=== PATIENT | male | born 1940 | race Caucasian/White ===

== ENCOUNTER 2016-09-15 14:00 | Outpatient (RCR) | payer MEDICARE ==
[~2016-09-15] VITALS: Ht 172.7 cm; Wt 71.4 kg
[~2016-09-15 14:00] MED LIST: ALBU0.8322 IH; AMLO5TAB2 PO; ASP325TEC PO; ASP81TEC PO; ASPI-999 PO; ATOR40TA PO; ATOR80TA PO; CARV12.53 PO; CARV6.252 PO; CEFU500T5 PO; CHOL200018 PO; EZET10TA5 PO; FISH OIL OMEGA; FISH OIL PO; FRS325T PO; GI COCTAIL PO; GLIP5TAB26 PO; HCT25T PO; IMIP25TA4 PO; IRON PO; MV,C1TAB21 PO; NF-ESOM40C PO; OMEG1CAP51 PO; RAMI10CA PO; RAMI5CAP PO; SITA50TA PO; TCD12.5U PO; VIT D-3 PO
[2016-09-15 14:50] VITALS: BP 142/61
[2016-09-15] MEDS ORDERED: METO-352 PO (16:52)
[2016-09-15] MEDS ORDERED: CYAN10006 PO (16:52)
[2016-09-15] MEDS ORDERED: CNC1KV IJ (16:52)
[2016-09-15] MEDS ORDERED: DIME50TA PO (16:52)
[2016-09-15] MEDS ORDERED: METF500T4 PO (16:52)
[2016-09-15] MEDS ORDERED: DILT120C82 PO (16:52)
[2016-09-16] VITALS (7 sets, daily range): BP systolic 108–142; BP diastolic 47–61
[2016-09-16] MEDS ORDERED: NS IV 500 ML 500 ML ONE (07:34)
== END 2016-12-14 | disposition home or self-care (01) ==
LOC: SDC 14:00 → EDSTATUS 15:46
DX: D64.9 Anemia, unspecified (principal)
CPT/HCPCS: 36430; 86850; 86900; 86901; 86920

== ENCOUNTER 2016-10-02 09:51 | Outpatient (RCR) | payer MEDICARE ==
[2016-09-29 09:25] LABS: BASOPHILS % (AUTO) 0 % (0-10); EOSINOPHILS # (AUTO) 0.2 10^3/uL (0.0-0.3); EOSINOPHILS % (AUTO) 1 % (0-10); LYMPHOCYTES # (AUTO) 13.2 X 10^3 (1.0-4.0); LYMPHOCYTES % (AUTO) 75 % (12-44); MEAN CORPUSCULAR HEMOGLOBIN 33 PG (25-34); MEAN CORPUSCULAR HGB CONC 31 G/DL (32-36); MEAN CORPUSCULAR VOLUME 106 FL (80-99); MEAN PLATELET VOLUME 10.5 FL (7.4-10.4); MONOCYTES % (AUTO) 11 % (0-12); NEUTROPHILS # (AUTO) 2.2 X 10^3 (1.8-7.8); NEUTROPHILS % (AUTO) 13 % (42-75); PLATELET COUNT 134 10^3/uL (130-400); RED BLOOD COUNT 2.73 10^6/uL (4.35-5.85); RED CELL DISTRIBUTION WIDTH 17.3 % (10.0-14.5); WHITE BLOOD COUNT 17.7 10^3/uL (4.3-11.0)
[2016-09-29 09:48] LABS: ALANINE AMINOTRANSFERASE 11 U/L (0-55); ALBUMIN 3.6 G/DL (3.2-4.5); ANION GAP 6 MMOL/L (5-14); ASPARTATE AMINO TRANSFERASE 10 U/L (5-34); BILIRUBIN,TOTAL 0.3 MG/DL (0.1-1.0); BLOOD UREA NITROGEN 18 MG/DL (7-18); BUN/CREATININE RATIO 21; CALCIUM 8.6 MG/DL (8.5-10.1); CARBON DIOXIDE 28 MMOL/L (21-32); CHLORIDE 105 MMOL/L (98-107); CREATININE SERUM 0.86 MG/DL (0.60-1.30); GFR ESTIMATED > 60; GLUCOSE 172 MG/DL (70-105); LACTATE DEHYDROGENASE 209 U/L (125-220); POTASSIUM 4.5 MMOL/L (3.6-5.0); SODIUM 139 MMOL/L (135-145); TOTAL PROTEIN 6.5 G/DL (6.4-8.2)
[2016-09-29 11:43] LABS: ATYPICAL LYMPHOCYTES 56 %; BAND NEUTROPHILS 0 %; BASOPHILS % (MANUAL) 1 %; EOSINOPHILS % (MANUAL) 1 %; LYMPHOCYTES % (MANUAL) 27 %; NEUTROPHILS % (MANUAL) 14 %; REACTIVE LYMPHOCYTES 1 %
[2016-09-29 11:46] LABS: ANISOCYTOSIS SLIGHT; HYPOCHROMASIA SLIGHT; POIKILOCYTOSIS SLIGHT; SPHEROCYTES SLIGHT
[2016-09-29 11:47] LABS: ROULEAUX SLIGHT; STOMATOCYTES SLIGHT; TEAR DROP CELLS SLIGHT
[2016-10-02 07:52] LABS: METHYLMALONIC ACID 0.18 umol/L (0.00-0.40)
[~2016-10-02 09:51] MED LIST changes: +CNC1KV IJ; +CYAN10006 PO; +DILT120C82 PO; +DIME50TA PO; +METF500T4 PO; +METO-352 PO
== END 2016-12-28 | disposition home or self-care (01) ==
LOC: ONC 09:51
PROVIDERS: ATTEND Internal Medicine Hematology & Oncology
DX: C91.10 Chronic lymphocytic leukemia of B-cell type not having achieved remission (principal); Z85.46 Personal history of malignant neoplasm of prostate; R97.20 Elevated prostate specific antigen [PSA]; D50.9 Iron deficiency anemia, unspecified; K21.9 Gastro-esophageal reflux disease without esophagitis; I42.9 Cardiomyopathy, unspecified; Z95.810 Presence of automatic (implantable) cardiac defibrillator; Z79.899 Other long term (current) drug therapy
CPT/HCPCS: 36415; 80053; 82728; 83615; 83921; 84153; 85007; 85027; 99213

== ENCOUNTER 2017-01-26 09:40 | Outpatient (CLI) | payer MEDICARE ==
[~2017-01-26] VITALS: Ht 172.7 cm; Wt 71.4 kg
[2017-01-26] VITALS (7 sets, daily range): BP systolic 131–147; BP diastolic 50–63
[2017-01-26] MEDS ORDERED: NS IV 500 ML 500 ML ONE (10:59)
[2017-01-26] MEDS ORDERED: NS IV 500 ML 500 ML IV SCH (12:15)
== END 2017-01-26 17:35 | disposition home or self-care (01) ==
LOC: SDC 09:40
DX: D64.9 Anemia, unspecified (principal)
CPT/HCPCS: 36430; 86850; 86900; 86901; 86920

== ENCOUNTER 2017-02-04 06:01 | Outpatient (CLI) | payer MEDICARE ==
[~2017-02-04] VITALS: Ht 172.7 cm; Wt 71.4 kg
[2017-02-04] MEDS ORDERED: FLUT1AER IH (11:01)
[2017-02-04] MEDS ORDERED: METO-272 PO (11:01)
[2017-02-04] MEDS ORDERED: UMEC62.5 IH (11:01)
[2017-02-04] MEDS ORDERED: METF500T8 PO (11:01)
[2017-02-04] MEDS ORDERED: DILT120C53 PO (11:01)
== END 2017-02-04 11:03 ==
LOC: PREOP 06:01
PROVIDERS: ATTEND Surgery
DX: Z01.818 Encounter for other preprocedural examination (principal); D50.9 Iron deficiency anemia, unspecified

== ENCOUNTER 2017-02-23 07:47 | Day surgery (SDC) | payer MEDICARE ==
[~2017-02-23] VITALS: Ht 172.7 cm; Wt 71.4 kg
[~2017-02-23 07:47] MED LIST changes: +DILT120C53 PO; +FLUT1AER IH; +METF500T8 PO; +METO-272 PO; +UMEC62.5 IH
[2017-02-23] MEDS ORDERED: fentaNYL INJECTION 100 MCG/2 ML AMP IVP PRN (08:00)
[2017-02-23] MEDS ORDERED: NS IV 500 ML 500 ML IV PRN (08:00)
[2017-02-23] MEDS ORDERED: HURRICAINE EXT TUBE (BENZOCAINE) XX PRN (08:00)
[2017-02-23] MEDS ORDERED: FLUMAZENIL (ROMAZICON) 0.1 MG/ML 5 ML VIAL INJ PRN (08:00)
[2017-02-23] MEDS ORDERED: MIDAZOLAM 2 MG/2 ML (VERSED) VIAL IVP PRN (08:00)
[2017-02-23] MEDS ORDERED: NALOXONE 0.4 MG/ML 1 ML (NARCAN) VIAL IVP PRN (08:00)
[2017-02-23 08:26] VITALS: BP 124/56
[2017-02-23] MEDS ORDERED: MIDAZOLAM 2 MG/2 ML (VERSED) VIAL ONE ×2 (08:34→09:02)
[2017-02-23] MEDS ORDERED: HURRICAINE EXT TUBE (BENZOCAINE) ONE (08:35)
[2017-02-23] MEDS ORDERED: fentaNYL INJECTION 100 MCG/2 ML AMP ONE (08:35)
--- NOTE | 2017-02-23 09:18 | Pre-Op Note & Conscious Sedat ---
Pre-Operative Progress Note H&P Reviewed The H&P was reviewed, patient examined and no changes noted. Date H&P Reviewed: Feb 23, 2017 Time H&P Reviewed: 08:51 Pre-Op Diagnosis: Iron deficiency anemia. GERD Conscious Sedation Pre-Proced Airway Mallampati Classification: (tribe appropriate class) I. II. III, IV Lungs Heart ASA score ASA 1: a normal healthy patient ASA 2: a patient with a mild systemic disease (mid diabetes, controlled hypertension, obesity ASA 3: a patient with a severe systemic disease that limits activity (angina , COPD, prior Myocardial infarction) ASA 4: a patient with an incapacitating disease that is a constant threat to life (CHF, renal failure) ASA 5: a moribund patient not expected to survive 24 hrs. (ruptured aneurysm) ASA 6: a declared brain patient whose organs are being harvested. For emergent operations, add the letter E after the classification Note The patient is an appropriate candidate to undergo the planned procedure, sedation, and anesthesia. The patient immediately re-assessed prior to indication. LEMUEL ADRIAN MD Feb 23, 2017 9:18 am
--- NOTE | 2017-02-23 09:19 | Progress Note-Post Operative ---
Post-Operative Progess Note Pre-Operative Diagnosis Iron deficiency anemia. GERD Post-Operative Diagnosis short hiatal hernia. 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 linear erosion of the distal stomach. normal duodenum Post-Op Procedure Note Date of Procedure: Feb 23, 2017 Name of Procedure: EGD with antral biopsy Anesthesia Type sedation Specimen(s) collected antral mucosa LEMUEL ADRIAN MD Feb 23, 2017 9:19 am
--- NOTE | 2017-02-23 09:20 | Discharge Inst-Simple/Standard ---
Discharge Inst-Standard Discharge Medications New, Converted or Re-Newed RX: Other Patient Instructions/Follow Up Plan of Care/Instructions/FU: follow up with his primary Activity as Tolerated: Yes Discharge Diet: No Restrictions LEMUEL ADRIAN MD Feb 23, 2017 9:20 am
--- NOTE | 2017-02-23 09:34 | PROCEDURE REPORT ---
PROCEDURE PHYSICIAN: LEMUEL ADRIAN DATE OF PROCEDURE: 02/23/2017 PROCEDURE: Upper GI endoscopy with antral biopsy. SURGEON: Jeromy INDICATION FOR THE PROCEDURE: This gentleman came in for an upper endoscopy to evaluate iron deficiency anemia and symptoms of gastroesophageal reflux. Informed consent was obtained after reviewing the procedure in detail. DESCRIPTION OF PROCEDURE: He was placed in left lateral decubitus position and his vital signs were monitored. Conscious sedation was achieved using Versed and fentanyl. The flexible gastroscope was introduced down the esophagus, past the stomach, into the proximal duodenum. FINDINGS: ESOPHAGUS: A short hiatal hernia without any inflammation. STOMACH: 1. 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 Photodocumentation was obtained. 2. Linear erosion at the distal stomach for about 15 mm. There was no bleeding from this erosion either. In addition, an antral biopsy was obtained for Helicobacter status. DUODENUM: Normal. He tolerated the procedure well and was taken back to the nursing area in a stable condition. IMPRESSION: 1. Iron deficiency anemia and symptoms of reflux disease. 2. 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 Erosion. 3. Helicobacter status pending. Job ID: [id number] Dictated Date: 02/23/2017 09:16:50 Mirror Painter Date: 02/23/2017 09:30:18 / coretta SHARP
[2017-02-23 09:52] VITALS: BP 108/44
[2017-02-23 09:55] VITALS: BP 121/55
[2017-02-23 10:10] VITALS: BP 121/55
--- OUTSIDE RECORDS SUMMARY | 2017-03-10 16:56 | XMS REPORT ---
Author Author Mike Limon Organization [facility] Address [address] [place], [place] [id number] Care Team Providers Care Bath Solution Maker Name Role Phone Mike Limon PCP Unavailable Allergies and Adverse Reactions Name Reaction Notes NO KNOWN DRUG ALLERGIES Plan of Treatment Planned Activity Comments Planned Date Planned Time Plan/Goal PSA TOTAL 10/07/2016 12:00 AM Testosterone Level 01/15/2015 12:00 AM Medications Not available. Problem List Description Status Onset Diabetes Mellitus, Type II Active Hyperlipidemia Active Hypertension Active Prostate Cancer Active Cancer of prostate Active 12/04/2014 Elevated prostate specific antigen (PSA) Active 12/04/2014 Urinary Incontinence Active 12/04/2014 Carcinoma of prostate Active 05/29/2015 Adenocarcinoma of prostate Active 10/02/2015 Vital Signs Date Time BP-Sys(mm[Hg] BP-Jayla(mm[Hg]) HR(bpm) RR(rpm) Temp WT HT HC BMI BSA BMI Percentile O2 Sat(%) 12/04/2014 8:59:00 AM 180 lbs 68 in 27.37 kg/m2 1.98 m2 11/13/2014 11:05:00 AM 130 mmHg 76 mmHg 54 bpm 16 rpm 98.1 F 179 lbs 68 in 27.22 kg/m2 1.9737 m 97 % Social History Name Description Comments Tobacco Alcohol Use - Rare History of Procedures Date Ordered Description Order Status 01/28/2016 12:00 AM ASSAY OF PSA TOTAL Reviewed 11/13/2014 12:00 AM COMPREHEN METABOLIC PANEL Reviewed 11/13/2014 12:00 AM LIPID PANEL Reviewed 11/13/2014 12:00 AM GLYCOSYLATED HEMOGLOBIN TEST Reviewed 11/13/2014 12:00 AM MICROALBUMIN SEMIQUANT Reviewed 12/04/2014 1:20 PM URINALYSIS AUTO W/O SCOPE Reviewed Results Summary Data and Description Results 11/14/2014 9:32 AM GLUCOSE 122.0 mg/dLSODIUM 136.0 mmol/LPOTASSIUM 4.20 mmol/ LCHLORIDE 100.0 mmol/LCO2 27.0 mmol/LBUN 27.0 mg/dLCREATININE 1.10 mg/dLSGOT/ AST 20.0 IU/LSGPT/ALT 19.0 IU/LALK PHOS 99.0 IU/LTOTAL PROTEIN 7.50 g/dLALBUMIN 4.20 g/dLTOTAL BILI 0.40 mg/dLCALCIUM 9.50 mg/dLAGE 74 GFR NonAA 65 GFR AA 79 eGFR 60 eGFR AA* 60 MICROALBUMIN UR 8.0 ug/mLTRIGLYCERIDES 132.0 mg/ dLCHOLESTEROL 126.0 mg/dLHDL 30.0 mg/dLTOT CHOL/HDL 4.2 LDL (CALC) 70.0 mg/ dLHGB A1C 7.10 %Est Avg Glucose 157.1 mg/dL 12/04/2014 1:20 PM Bilirub Ur Ql Strip -VE Glucose Ur-sCnc -VE Hgb Ur Ql Strip - VE Ketones Ur Ql Strip -VE Nitrite Ur Ql Strip -VE pH Ur-LsCnc -VE Prot Ur Ql Strip -VE Sp Gr Ur Qn 1015 Urobilinogen Ur-mCnc -VE WBC Est Ur Ql Strip -VE History Of Immunizations Not available. History of Past Illness Name Date of Onset Comments Prostate Cancer Hyperlipidemia Hypertension Diabetes Mellitus, Type II Cancer of prostate 12/04/2014 Elevated prostate specific antigen (PSA) 12/04/2014 Urinary Incontinence 12/04/2014 Carcinoma of prostate 05/29/2015 Adenocarcinoma of prostate 10/02/2015 Prostate Cancer Nov 13 2014 11:08AM Diabetes Mellitus, Type II Nov 13 2014 11:08AM Hyperlipidemia Nov 13 2014 11:08AM Hypertension Nov 13 2014 11:08AM Anemia Nov 13 2014 11:08AM Recurrent Cancer of prostate Dec 04 2014 8:59AM Elevated prostate specific antigen (PSA) Dec 04 2014 8:59AM Chronic Urinary Incontinence Dec 04 2014 8:59AM Recurrent Prostate cancer, primary, with metastasis from prostate to other site Jan 15 2015 10:58AM Carcinoma of prostate May 29 2015 12:17PM Adenocarcinoma of prostate Stable Oct 02 2015 1:51PM Cancer of prostate Jan 28 2016 3:04PM Elevated prostate specific antigen [PSA] Jan 28 2016 3:04PM Drug therapy Jan 28 2016 3:04PM Adenocarcinoma of prostate Feb 01 2016 12:22PM Elevated PSA May 27 2016 8:24AM Cancer of prostate May 27 2016 8:24AM Adenocarcinoma of prostate Jun 03 2016 11:30AM Screening for prostate cancer Oct 07 2016 11:25AM Elevated PSA Oct 07 2016 11:25AM BPH (benign prostatic hypertrophy) Oct 07 2016 11:25AM Payers Insurance Name Company Name Plan Name Plan Number Policy Number Policy Group Number Start Date Medicare Part A Medicare Part A [id number] N/A [id number] N/A Medicare Part B Medicare Of [place] [id number] N/A Medicare Part A Medicare - Lab/Xray [id number] N/A History of Encounters Visit Date Visit Type Provider 10/07/2016 Office visit V Pilar Limon MD 06/03/2016 Office visit V Pilar Limon MD 02/01/2016 Office visit V Pilar Limon MD 10/02/2015 Office visit V Pilar Limon MD 05/29/2015 Office visit V Pilar Limon MD 01/15/2015 Office visit V Pilar Limon MD 12/04/2014 Office visit V Pilar Limon MD 11/13/2014 Office visit Dieudonne Moreno DO
--- OUTSIDE RECORDS SUMMARY | 2017-03-10 16:56 | XMS REPORT ---
Author Author [facility] Organization [facility] Address [address] [place], [place] [phone] Care Team Providers Care Hide Inspector And Sorter Name Role Phone PCP Unavailable Allergies and Adverse Reactions Name Reaction Notes NO KNOWN DRUG ALLERGIES Plan of Treatment Planned Activity Comments Planned Date Planned Time Plan/Goal ASSAY OF TOTAL TESTOSTERONE 01/15/2015 12:00 AM Medications Not available. Problem List Description Status Onset Diabetes Mellitus, Type II Active Hyperlipidemia Active Hypertension Active Prostate Cancer Active Cancer of prostate Active 12/04/2014 Elevated prostate specific antigen (PSA) Active 12/04/2014 Urinary Incontinence Active 12/04/2014 Carcinoma of prostate Active 05/29/2015 Vital Signs Date Time BP-Sys(mm[Hg] BP-Jayla(mm[Hg]) HR(bpm) [...] of Procedures Date Ordered Description Order Status 11/13/2014 12:00 AM COMPREHEN METABOLIC PANEL Reviewed 11/13/2014 12:00 AM COMPREHEN METABOLIC PANEL [...] g/dLALBUMIN 4.20 g/dLTOTAL BILI 0.40 mg/dLCALCIUM 9.50 mg/dLeGFR 60 MICROALBUMIN UR 8.0 ug/ mLTRIGLYCERIDES 132.0 mg/dLCHOLESTEROL 126.0 mg/dLHDL 30.0 mg/dLLDL (CALC) 70.0 mg/dLHGB A1C 7.10 % 12/04/2014 1:20 PM Bilirub Ur Ql Strip [...] Urinary Incontinence 12/04/2014 Carcinoma of prostate 05/29/2015 Prostate Cancer Nov 13 2014 11:08AM Diabetes [...] Carcinoma of prostate May 29 2015 12:17PM Payers Insurance Name Company Name Plan Name Plan Number Policy Number Policy Group Number Start Date Medicare Part A Medicare Part A [id number] N/A [facility] [id number] N/A Medicare Part B Medicare Of [place] [id number] N/A History of Encounters Visit Date Visit Type Provider 05/29/2015 Office visit Mike Limon MD 01/15/2015 Office visit Mike Limon MD 12/04/2014 Office visit Mike Limon MD 11/13/2014 Office visit Dieudonne Moreno DO
--- OUTSIDE RECORDS SUMMARY | 2017-03-10 16:57 | XMS REPORT ---
Author Author Mike Limon Organization [facility] Address [address] [place], [place] [phone] Care Team Providers Care Diabetes Nurse Name Role Phone Mike Limon PCP Unavailable [...] prostate specific antigen (PSA) Active 12/04/2014 Urinary incontinence Active 12/04/2014 Carcinoma of prostate Active 05/29/2015 [...] mg/dLCHOLESTEROL 126.0 mg/dLHDL 30.0 mg/dLLDL (CALC) 70.0 mg/dLEst Avg Glucose 157.1 mg/dL 12/04/2014 1:20 PM [...] Elevated prostate specific antigen (PSA) 12/04/2014 Urinary incontinence 12/04/2014 Carcinoma of prostate 05/29/2015 Adenocarcinoma of [...] Adenocarcinoma of prostate Feb 01 2016 12:22PM Payers Insurance Name Company Name Plan Name Plan Number Policy Number Policy Group Number Start Date Medicare Part A Medicare Part A [id number] N/A [facility] [id number] N/A Medicare Part B Medicare Of [place] [id number] N/A History of Encounters Visit Date Visit Type Provider 02/01/2016 Office visit V Pilar Limon MD 10/02/2015 Office visit V Pilar Limon MD 05/29/2015 Office visit V Pilar Limon MD 01/15/2015 Office visit V Pilar Limon MD 12/04/2014 Office visit V Pilar Limon MD 11/13/2014 Office visit Dieudonne Moreno DO
--- OUTSIDE RECORDS SUMMARY | 2017-03-10 16:57 | XMS REPORT ---
Author Author Mike Limon Organization [facility] Address [address] [place], [place] [phone] Care Team Providers Care Solution Director Name Role Phone Mike Lmion PCP Unavailable Allergies and Adverse Reactions Name Reaction Notes NO KNOWN DRUG ALLERGIES Plan of Treatment Planned Activity Comments Planned Date Planned Time Plan/Goal PSA TOTAL 01/28/2017 12:00 AM Testosterone Level 01/15/2015 12:00 AM [...] 12:00 AM ASSAY OF PSA TOTAL Reviewed 10/07/2016 12:00 AM ASSAY OF PSA TOTAL Reviewed [...] -VE WBC Est Ur Ql Strip -VE 10/07/2016 12:05 PM PSA TOTAL <0.06 ng/mL History Of Immunizations Not available. History of [...] (benign prostatic hypertrophy) Oct 07 2016 11:25AM Adenocarcinoma of prostate Oct 07 2016 11:41AM Cancer of prostate Jan 28 2017 8:24AM Payers Insurance Name Company Name Plan Name Plan Number Policy Number Policy Group Number Start Date Medicare Part A Medicare Part A [id number] N/A BCBS [facility] [id number] N/A Medicare Part B Medicare Of [place] [id number] N/A Medicare Part A Medicare - Lab/Xray [id number] N/A History of Encounters Visit Date Visit [...]
--- OUTSIDE RECORDS SUMMARY | 2017-03-10 17:03 | XMS REPORT ---
Author Author Mike Limon Organization [facility] Address [address] [place], [place] [phone] Care Team Providers Care Ems Driver Name Role Phone Mike Limon PCP Unavailable Allergies and Adverse Reactions Name Reaction Notes NO KNOWN DRUG ALLERGIES Plan of Treatment Planned Activity Comments Planned Date Planned Time Plan/Goal ASSAY OF PSA TOTAL 05/27/2016 12:00 AM ASSAY OF TOTAL TESTOSTERONE 01/15/2015 12:00 AM [...] 30.0 mg/dLLDL (CALC) 70.0 mg/dLHGB A1C 7.10 %Est Avg Glucose 157.1 mg/dL [...] Cancer of prostate May 27 2016 8:24AM Payers Insurance Name Company Name Plan Name Plan Number Policy Number Policy Group Number Start Date Medicare Part A Medicare Part A [id number] N/A [facility] [id number] N/A Medicare Part B Medicare Of [place] [id number] N/A History of Encounters Visit Date Visit Type Provider 02/01/2016 Office visit V Pilar Limon MD 10/02/2015 Office visit V Pilar Limon MD 05/29/2015 Office visit V Pilar Limon MD 01/15/2015 Office visit V Pilar Limon MD 12/04/2014 Office visit V Pilar Limon MD 11/13/2014 Office visit Dieudonne Moreno DO
--- OUTSIDE RECORDS SUMMARY | 2017-03-10 17:03 | XMS REPORT | Continuity of Care Document ---
Author Author [facility] Organization [facility] Address Unknown Phone Unavailable Allergies Active Description Code Type Severity Reaction Onset Reported/Identified Relationship to Patient Clinical Status Yes No Known Drug Allergies [id number] Drug Allergy Unknown N/ A 10/16/2016 Medications Problems Date Dx Coded Attending Type Code Diagnosis Diagnosed By 06/13/2009 Ot 530.81 06/13/2009 Ot 535.40 08/01/2009 Ot 204.10 08/01/2009 Ot 440.20 08/01/2009 Ot 788.30 08/01/2009 Ot V10.46 08/01/2009 Ot V58.66 08/01/2009 Ot V58.69 11/12/2009 Ot 204.10 11/12/2009 Ot 440.20 11/12/2009 Ot 788.30 11/12/2009 Ot V10.46 11/12/2009 Ot V58.66 11/12/2009 Ot V58.69 06/16/2010 Ot 204.10 06/16/2010 Ot 305.1 06/16/2010 Ot V10.46 06/16/2010 Ot V58.66 06/16/2010 Ot V58.69 09/22/2010 Ot 204.10 09/22/2010 Ot 305.1 09/22/2010 Ot V10.46 09/22/2010 Ot V58.66 09/22/2010 Ot V58.69 12/29/2010 Ot 204.10 12/29/2010 Ot 305.1 12/29/2010 Ot V10.46 12/29/2010 Ot V58.66 12/29/2010 Ot V58.69 04/07/2011 Ot 204.10 CHRONIC LYMPHOID LEUKEMIA, W/O MENTION A 04/07/2011 Ot 305.1 TOBACCO USE DISORDER 04/07/2011 Ot V10.46 HX-PROSTATIC MALIGNANCY 04/07/2011 Ot V58.66 LONG-TERM (CURRENT) USE OF ASPIRIN 04/07/2011 Ot V58.69 OTH MED,LT,CURRENT USE 04/13/2012 Ot 204.10 CHRONIC LYMPHOID LEUKEMIA, W/O MENTION A 04/13/2012 Ot 250.00 DIAB ORALIA WO COMPL, TYPE II OR UNSPEC TY 04/13/2012 Ot 401.9 HYPERTENSION NOS 04/13/2012 Ot 414.01 CORONARY ATHEROSCLEROSIS OF [place] CORON 04/13/2012 Ot 425.4 PRIM CARDIOMYOPATHY NEC 04/13/2012 Ot 427.81 SINOATRIAL NODE DYSFUNCT 04/13/2012 Ot V10.46 HX-PROSTATIC MALIGNANCY 04/13/2012 Ot V15.82 HISTORY OF TOBACCO USE 04/13/2012 Ot V58.66 LONG-TERM (CURRENT) USE OF ASPIRIN 04/13/2012 Ot V58.69 OTH MED,LT,CURRENT USE 04/28/2012 Ot 204.10 CHRONIC LYMPHOID LEUKEMIA, W/O MENTION A 04/28/2012 Ot 250.00 DIAB ORALIA WO COMPL, TYPE II OR UNSPEC TY 04/28/2012 Ot 401.9 HYPERTENSION NOS 04/28/2012 Ot 414.01 CORONARY ATHEROSCLEROSIS OF [place] CORON 04/28/2012 Ot 425.4 PRIM CARDIOMYOPATHY NEC 04/28/2012 Ot 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 04/28/2012 Ot 427.1 PAROX VENTRIC TACHYCARD 04/28/2012 Ot 427.81 SINOATRIAL NODE DYSFUNCT 04/28/2012 Ot V10.46 HX-PROSTATIC MALIGNANCY 04/28/2012 Ot V15.82 HISTORY OF TOBACCO USE 04/28/2012 Ot V58.66 LONG-TERM (CURRENT) USE OF ASPIRIN 04/28/2012 Ot V58.69 OTH MED,LT,CURRENT USE 01/26/2013 Ot 204.10 CHRONIC LYMPHOID LEUKEMIA, W/O MENTION A 01/26/2013 Ot 425.4 PRIM CARDIOMYOPATHY NEC 01/26/2013 Ot 585.3 CHRONIC KIDNEY DISEASE, STAGE III (MODER 01/26/2013 Ot V10.46 HX-PROSTATIC MALIGNANCY 01/26/2013 Ot V45.02 AUTO IMPLANTABLE CARDIAC DEFIBRILLATOR I 01/26/2013 Ot V58.66 LONG-TERM (CURRENT) USE OF ASPIRIN 01/26/2013 Ot V58.69 OTH MED,LT,CURRENT USE 05/03/2013 Ot 204.10 CHRONIC LYMPHOID LEUKEMIA, W/O MENTION A 05/03/2013 Ot 425.4 PRIM CARDIOMYOPATHY NEC 05/03/2013 Ot 585.3 CHRONIC KIDNEY DISEASE, STAGE III (MODER 05/03/2013 Ot V10.46 HX-PROSTATIC MALIGNANCY 05/03/2013 Ot V45.02 AUTO IMPLANTABLE CARDIAC DEFIBRILLATOR I 05/03/2013 Ot V58.66 LONG-TERM (CURRENT) USE OF ASPIRIN 05/03/2013 Ot V58.69 OTH MED,LT,CURRENT USE 06/16/2013 ABBY JIN MD Ot 280.0 CHR BLOOD LOSS ANEMIA 06/16/2013 ABBY JIN MD Ot 530.11 REFLUX ESOPHAGITIS 06/16/2013 ABBY JIN MD Ot 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 06/16/2013 ABBY JIN MD Ot V12.72 PERSONAL HISTORY OF COLONIC POLYPS 08/25/2013 ABBY JIN MD Ot 250.00 DIAB ORALIA WO COMPL, TYPE II OR UNSPEC TY 08/25/2013 ABBY JIN MD Ot 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 09/28/2013 CHRISTOPHER ESCOBEDO Ot 204.10 CHRONIC LYMPHOID LEUKEMIA, W/O MENTION A 09/28/2013 CHRISTOPHER ESCOBEDO Ot 280.9 IRON DEFIC ANEMIA NOS 09/28/2013 CHRISTOPHER ESCOBEDO Ot 425.4 PRIM CARDIOMYOPATHY NEC 09/28/2013 CHRISTOPHER ESCOBEDO Ot 585.3 CHRONIC KIDNEY DISEASE, STAGE III (MODER 09/28/2013 CRHISTOPHER ESCOBEDO Ot V10.46 HX-PROSTATIC MALIGNANCY 09/28/2013 CHRISTOPHER ESCOBEDO Ot V45.02 AUTO IMPLANTABLE CARDIAC DEFIBRILLATOR I 09/28/2013 CHRISTOPHER ESCOBEDO Ot V58.66 LONG-TERM (CURRENT) USE OF ASPIRIN 09/28/2013 CHRISTOPHER ESCOBEDO Ot V58.69 OTH MED,LT,CURRENT USE 12/08/2013 ABBY JIN MD Ot 530.81 ESOPHAGEAL REFLUX 04/02/2014 CHRISTOPHER ESCOBEDO Ot 280.9 IRON DEFIC ANEMIA NOS 04/02/2014 CHRISTOPHER ESCOBEDO Ot V58.69 OTH MED,LT,CURRENT USE 05/19/2014 ABBY JIN MD Ot 250.00 DIAB ORALIA WO COMPL, TYPE II OR UNSPEC TY 05/19/2014 ABBY JIN MD Ot 530.81 ESOPHAGEAL REFLUX 05/19/2014 ABBY JIN MD Ot 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46 10/20/2014 Ot V58.66 10/20/2014 Ot V58.69 10/20/2014 Ot 204.10 10/20/2014 Ot V10.46 10/20/2014 Ot V58.69 10/20/2014 Ot 272.4 10/20/2014 Ot 401.9 10/20/2014 Ot 414.01 10/20/2014 Ot 272.4 10/20/2014 Ot 427.1 10/20/2014 Ot 428.0 10/20/2014 Ot 272.4 10/20/2014 Ot 396.3 10/20/2014 Ot 397.0 10/20/2014 Ot 427.2 10/20/2014 Ot 272.4 10/20/2014 Ot V58.69 10/20/2014 Ot 204.10 10/20/2014 Ot 305.1 10/20/2014 Ot V10.46 10/20/2014 Ot V58.66 10/20/2014 Ot V58.69 10/20/2014 Ot 433.30 10/20/2014 Ot 204.10 10/20/2014 Ot 788.30 10/20/2014 Ot V10.46 10/20/2014 Ot V58.66 10/20/2014 Ot V58.69 10/20/2014 Ot 204.10 10/20/2014 Ot 585.3 10/20/2014 Ot V10.46 10/20/2014 Ot V58.66 10/20/2014 Ot V58.69 10/20/2014 Ot 272.4 10/20/2014 Ot 401.9 10/20/2014 Ot 414.01 10/20/2014 Ot V58.69 10/20/2014 Ot 204.10 10/20/2014 Ot 585.3 10/20/2014 Ot V10.46 10/20/2014 Ot V58.66 10/20/2014 Ot V58.69 10/20/2014 Ot 272.4 10/20/2014 Ot V58.69 10/20/2014 Ot 401.9 10/20/2014 Ot 414.00 10/20/2014 Ot 425.4 10/20/2014 Ot 780.79 10/20/2014 Ot 785.0 10/20/2014 Ot V58.66 10/20/2014 Ot V58.69 10/20/2014 Ot V72.63 10/20/2014 Ot V72.81 10/20/2014 Ot 250.00 10/20/2014 Ot 305.1 10/20/2014 Ot 401.9 10/20/2014 Ot 414.01 10/20/2014 Ot 425.4 10/20/2014 Ot V58.66 10/20/2014 Ot V58.69 10/20/2014 Ot V72.63 10/20/2014 Ot V72.81 10/20/2014 Ot 204.10 10/20/2014 Ot 425.4 10/20/2014 Ot 585.3 10/20/2014 Ot V10.46 10/20/2014 Ot V58.66 10/20/2014 Ot V58.69 10/20/2014 Ot 272.4 10/20/2014 Ot 401.9 10/20/2014 Ot V58.69 10/20/2014 Ot 272.4 10/20/2014 Ot 401.9 10/20/2014 Ot V58.69 10/20/2014 Ot 204.10 10/20/2014 Ot 425.4 10/20/2014 Ot 585.3 10/20/2014 Ot V10.46 10/20/2014 Ot V45.02 10/20/2014 Ot V58.66 10/20/2014 Ot V58.69 10/20/2014 Ot 272.4 10/20/2014 Ot 401.9 10/20/2014 Ot V58.69 10/20/2014 Ot 272.4 10/20/2014 Ot 401.9 10/20/2014 Ot V58.69 10/20/2014 Ot 272.4 10/20/2014 Ot 401.9 10/20/2014 Ot V58.69 10/20/2014 Ot 250.00 10/20/2014 LUCILA MAHSA Sadler ARTILLERY OFFICER Ot 204.10 10/20/2014 LUCILA MAHSA Sadler ARTILLERY OFFICER Ot 280.9 10/20/2014 LUCILA MAHSA S ARTILLERY OFFICER Ot 425.4 10/20/2014 LUCILA MAHSA S ARTILLERY OFFICER Ot 585.3 10/20/2014 LUCILA MAHSA S ARTILLERY OFFICER Ot 786.07 10/20/2014 LUCILA MAHSA Sadler ARTILLERY OFFICER Ot V10.46 10/20/2014 LUCILA MAHSA Sadler ARTILLERY OFFICER Ot V45.01 10/20/2014 LUCILA MAHSA Sadler ARTILLERY OFFICER Ot V58.66 10/20/2014 LUCILA MAHSA Sadler ARTILLERY OFFICER Ot V58.69 10/20/2014 THOMASSERENA DAVID L ARTILLERY OFFICER Ot 272.4 10/20/2014 DAVID FLORES ARTILLERY OFFICER Ot V58.69 10/20/2014 LUCILA MAHSA Sadler ARTILLERY OFFICER Ot 786.07 10/20/2014 ANNABEL LINTON, ABBY Sadler Ot V72.84 10/20/2014 TOREY LINTON, Livier FLORES Ot 185 10/20/2014 LUCILA MAHSA Sdaler ARTILLERY OFFICER Ot 204.10 10/20/2014 LUCILA MAHSA Sadler ARTILLERY OFFICER Ot 425.4 10/20/2014 LUCILA MAHSA Sadler ARTILLERY OFFICER Ot V10.46 10/20/2014 LUCILA MAHSA Sadler ARTILLERY OFFICER Ot V45.01 10/20/2014 LUCILA MAHSA S ARTILLERY OFFICER Ot V58.66 10/20/2014 LUCILA MAHSA Sadler ARTILLERY OFFICER Ot V58.69 10/20/2014 ANNABEL LINTON, ABBY Sadler Ot 530.85 10/20/2014 ANNABEL LINTON, ABBY Sadler Ot V72.63 10/20/2014 ANNABEL LINTON, ABBY Sadler Ot V72.81 10/20/2014 ANNABEL LINTON, ABBY S Ot V74.8 10/20/2014 GREGG CHRISTOPHER N Ot 185 10/20/2014 CHRISTOPHER ESCOBEDO N Ot 790.93 10/20/2014 TRAV LINTON [facility] CCDS Ot 425.4 10/20/2014 ANNABEL LINTON, ABBY S Ot V72.84 10/20/2014 THOMASDAVID LYONS L ARTILLERY OFFICER Ot 272.4 10/20/2014 THOMASDAVID LYONS L ARTILLERY OFFICER Ot 401.9 10/20/2014 THOMASDAVID LYONS L ARTILLERY OFFICER Ot 414.00 10/20/2014 THOMASDAVID LYONS L ARTILLERY OFFICER Ot V58.69 10/20/2014 LUCILA HILAH S ARTILLERY OFFICER Ot 204.10 10/20/2014 ELIESER GAYTANAH S ARTILLERY OFFICER Ot 280.9 10/20/2014 LUCILA HILAH S ARTILLERY OFFICER Ot 414.00 10/20/2014 ELIESER GAYTANAH S ARTILLERY OFFICER Ot 425.4 10/20/2014 ELIESER GAYTANAH S ARTILLERY OFFICER Ot 530.81 10/20/2014 ELIESER GAYTANAH S ARTILLERY OFFICER Ot V10.46 10/20/2014 ELIEESR GAYTANAH S ARTILLERY OFFICER Ot V45.02 10/20/2014 LUCILA HILAH S ARTILLERY OFFICER Ot V58.69 10/20/2014 MARKDAVID L ARTILLERY OFFICER Ot 272.4 10/20/2014 MARKDAVID L ARTILLERY OFFICER Ot 401.9 10/20/2014 ELIESER GAYTANAH S ARTILLERY OFFICER Ot 204.10 10/20/2014 ELIESER GAYTANAH S ARTILLERY OFFICER Ot 280.9 10/20/2014 ELIESER GAYTANAH S ARTILLERY OFFICER Ot 414.00 10/20/2014 ELIESER GAYTANAH S ARTILLERY OFFICER Ot 425.4 10/20/2014 LUCILA HILAH S ARTILLERY OFFICER Ot 530.81 10/20/2014 LUCILA HILAH S ARTILLERY OFFICER Ot V10.46 10/20/2014 LUCILA HILAH S ARTILLERY OFFICER Ot V45.02 10/20/2014 ELIESER GAYTANAH S ARTILLERY OFFICER Ot V58.69 10/20/2014 ANNABEL LINTON, ABBY S Ot 574.20 10/20/2014 MAHSA GAYTAN S ARTILLERY OFFICER Ot 185 10/20/2014 MAHSA GAYTAN S ARTILLERY OFFICER Ot 793.99 10/20/2014 ANNABEL LINTON, ABBY S Ot 492.8 10/20/2014 ANNABEL LINTON, ABBY S Ot 530.81 10/20/2014 ANNABEL LINTON, ABBY S Ot 574.20 10/20/2014 ANNABEL LINTON, ABBY S Ot V72.83 10/20/2014 ANNABEL LINTON, ABBY S Ot V74.8 10/20/2014 ANNABEL LINTON, ABBY S Ot V72.84 10/20/2014 GREGGCHRISTOPHER BABCOCK N Ot 280.9 10/20/2014 GREGGCHRISTOPHER BABCOCK N Ot V58.69 10/20/2014 DAVID FLORES ARTILLERY OFFICER Ot 272.0 10/20/2014 ANNABEL LINTON, ABBY S Ot 574.20 10/20/2014 ANNABEL LINTON, ABBY S Ot 492.8 10/20/2014 ANNABEL LINTON, ABBY S Ot 530.81 10/20/2014 ANNABEL LINTON, ABBY S Ot 574.20 10/20/2014 ANNABEL LINTON, ABBY S Ot V72.83 10/20/2014 ANNABEL LINTON, ABBY S Ot V74.8 10/23/2014 GREGGCHRISTOPHER BABCOCK N Ot 280.9 10/23/2014 GREGGCHRISTOPHER BABCOCK N Ot V58.69 10/23/2014 GREGGCHRISTOPHER N Ot 280.9 10/23/2014 GREGGCHRISTOPHER N Ot V58.69 10/24/2014 GREGGCHRISTOPHER N Ot 280.9 10/24/2014 GREGGCHRISTOPHER BABCOCK N Ot V58.69 10/31/2014 Ot 786.2 10/31/2014 Ot 272.4 10/31/2014 Ot 397.0 10/31/2014 Ot 401.9 10/31/2014 Ot 414.01 10/31/2014 Ot 424.0 10/31/2014 Ot 428.0 10/31/2014 Ot 204.10 10/31/2014 Ot 440.20 10/31/2014 Ot 788.30 10/31/2014 Ot V10.46 10/31/2014 Ot V58.66 10/31/2014 Ot V58.69 10/31/2014 Ot 204.10 10/31/2014 Ot V10.46 10/31/2014 Ot V58.69 10/31/2014 Ot 272.4 10/31/2014 Ot 401.9 10/31/2014 Ot 414.01 10/31/2014 Ot 272.4 10/31/2014 Ot 427.1 10/31/2014 Ot 428.0 10/31/2014 Ot 272.4 10/31/2014 Ot 396.3 10/31/2014 Ot 397.0 10/31/2014 Ot 427.2 10/31/2014 Ot 272.4 10/31/2014 Ot V58.69 10/31/2014 Ot 204.10 10/31/2014 Ot 305.1 10/31/2014 Ot V10.46 10/31/2014 Ot V58.66 10/31/2014 Ot V58.69 10/31/2014 Ot 433.30 10/31/2014 Ot 204.10 10/31/2014 Ot 788.30 10/31/2014 Ot V10.46 10/31/2014 Ot V58.66 10/31/2014 Ot V58.69 10/31/2014 Ot 204.10 10/31/2014 Ot 585.3 10/31/2014 Ot V10.46 10/31/2014 Ot V58.66 10/31/2014 Ot V58.69 10/31/2014 Ot 272.4 10/31/2014 Ot 401.9 10/31/2014 Ot 414.01 10/31/2014 Ot V58.69 10/31/2014 Ot 204.10 10/31/2014 Ot 585.3 10/31/2014 Ot V10.46 10/31/2014 Ot V58.66 10/31/2014 Ot V58.69 10/31/2014 Ot 272.4 10/31/2014 Ot V58.69 10/31/2014 Ot 401.9 10/31/2014 Ot 414.00 10/31/2014 Ot 425.4 10/31/2014 Ot 780.79 10/31/2014 Ot 785.0 10/31/2014 Ot V58.66 10/31/2014 Ot V58.69 10/31/2014 Ot V72.63 10/31/2014 Ot V72.81 10/31/2014 Ot 250.00 10/31/2014 Ot 305.1 10/31/2014 Ot 401.9 10/31/2014 Ot 414.01 10/31/2014 Ot 425.4 10/31/2014 Ot V58.66 10/31/2014 Ot V58.69 10/31/2014 Ot V72.63 10/31/2014 Ot V72.81 10/31/2014 Ot 204.10 10/31/2014 Ot 425.4 10/31/2014 Ot 585.3 10/31/2014 Ot V10.46 10/31/2014 Ot V58.66 10/31/2014 Ot V58.69 10/31/2014 Ot 272.4 10/31/2014 Ot 401.9 10/31/2014 Ot V58.69 10/31/2014 Ot 272.4 10/31/2014 Ot 401.9 10/31/2014 Ot V58.69 10/31/2014 Ot 204.10 10/31/2014 Ot 425.4 10/31/2014 Ot 585.3 10/31/2014 Ot V10.46 10/31/2014 Ot V45.02 10/31/2014 Ot V58.66 10/31/2014 Ot V58.69 10/31/2014 Ot 272.4 10/31/2014 Ot 401.9 10/31/2014 Ot V58.69 10/31/2014 Ot 272.4 10/31/2014 Ot 401.9 10/31/2014 Ot V58.69 10/31/2014 Ot 272.4 10/31/2014 Ot 401.9 10/31/2014 Ot V58.69 10/31/2014 Ot 250.00 10/31/2014 MAHSA GAYTAN ARTILLERY OFFICER Ot 204.10 10/31/2014 MAHSA GAYTAN ARTILLERY OFFICER Ot 280.9 10/31/2014 MAHSA GAYTAN ARTILLERY OFFICER Ot 425.4 10/31/2014 MAHSA GAYTAN ARTILLERY OFFICER Ot 585.3 10/31/2014 MAHSA GAYTAN ARTILLERY OFFICER Ot 786.07 10/31/2014 MAHSA GAYTAN ARTILLERY OFFICER Ot V10.46 10/31/2014 MAHSA GAYTAN ARTILLERY OFFICER Ot V45.01 10/31/2014 MAHSA GAYTAN ARTILLERY OFFICER Ot V58.66 10/31/2014 MAHSA GAYTAN ARTILLERY OFFICER Ot V58.69 10/31/2014 DAVID FLORES ARTILLERY OFFICER Ot 272.4 10/31/2014 DAVID FLORESP Ot V58.69 10/31/2014 GAYTANMAHSA S ARTILLERY OFFICER Ot 786.07 10/31/2014 ANNABEL LINTON, ABBY S Ot V72.84 10/31/2014 TOREY LINTON, Livier FLORES Ot 185 10/31/2014 GAYTANMAHSA Sadler S ARTILLERY OFFICER Ot 204.10 10/31/2014 GAYTAN ELIESERAH S ARTILLERY OFFICER Ot 425.4 10/31/2014 GAYTAN MAHSA S ARTILLERY OFFICER Ot V10.46 10/31/2014 GAYTANMAHSA S ARTILLERY OFFICER Ot V45.01 10/31/2014 GAYTAN MAHSA S ARTILLERY OFFICER Ot V58.66 10/31/2014 LUCILA MAHSA S ARTILLERY OFFICER Ot V58.69 10/31/2014 ANNABEL LINTON, ABBY S Ot 530.85 10/31/2014 ANNABEL LINTON, ABBY S Ot V72.63 10/31/2014 ANNABEL LINTON, ABBY S Ot V72.81 10/31/2014 ANNABEL LINTON, ABBY S Ot V74.8 10/31/2014 CHRISTOPHER ESCOBEDO Ot 185 10/31/2014 CHRISTOPHER ESCOBEDO Ot 790.93 10/31/2014 TRAV LINTON FAC, ALI FAC CCDS Ot 425.4 10/31/2014 ANNABEL LINTON, ABBY S Ot V72.84 10/31/2014 THOMASSERENA DAVID L ARTILLERY OFFICER Ot 272.4 10/31/2014 MARK DAVID L ARTILLERY OFFICER Ot 401.9 10/31/2014 DAVID FLORES ARTILLERY OFFICER Ot 414.00 10/31/2014 DAVID FLORES ARTILLERY OFFICER Ot V58.69 10/31/2014 GAYTNAMAHSA Sadler S ARTILLERY OFFICER Ot 204.10 10/31/2014 GAYTAN MAHSA S ARTILLERY OFFICER Ot 280.9 10/31/2014 GAYTAN MAHSA S ARTILLERY OFFICER Ot 414.00 10/31/2014 GAYTAN ELIESERAH S ARTILLERY OFFICER Ot 425.4 10/31/2014 GAYTAN ELIESERAH S ARTILLERY OFFICER Ot 530.81 10/31/2014 GAYTAN MAHSA S ARTILLERY OFFICER Ot V10.46 10/31/2014 GAYTAN MAHSA S ARTILLERY OFFICER Ot V45.02 10/31/2014 GAYTAN MAHSA S ARTILLERY OFFICER Ot V58.69 10/31/2014 THOMASDAVID LYONS ARTILLERY OFFICER Ot 272.4 10/31/2014 THOMASDAVID LYONS Fiordaliza ARTILLERY OFFICER Ot 401.9 10/31/2014 MAHSA GAYTAN S ARTILLERY OFFICER Ot 204.10 10/31/2014 MAHSA GAYTAN S ARTILLERY OFFICER Ot 280.9 10/31/2014 MAHSA GAYTAN S ARTILLERY OFFICER Ot 414.00 10/31/2014 GAYTANMAHSA Sadler S ARTILLERY OFFICER Ot 425.4 10/31/2014 MAHSA GAYTAN S ARTILLERY OFFICER Ot 530.81 10/31/2014 MAHSA GAYTAN S ARTILLERY OFFICER Ot V10.46 10/31/2014 MAHSA GAYTAN S ARTILLERY OFFICER Ot V45.02 10/31/2014 MAHSA GAYTAN S ARTILLERY OFFICER Ot V58.69 10/31/2014 ANNABEL LINTON, ABBY S Ot 574.20 10/31/2014 MAHSA GAYTAN S ARTILLERY OFFICER Ot 185 10/31/2014 MAHSA GAYTAN S ARTILLERY OFFICER Ot 793.99 10/31/2014 ANNABEL LINTON, ABBY S Ot 492.8 10/31/2014 ANNABEL LINTON, ABBY S Ot 530.81 10/31/2014 ANNABEL LINTON, ABBY S Ot 574.20 10/31/2014 ANNABEL LINTON, ABBY S Ot V72.83 10/31/2014 ANNABEL LINTON, ABBY S Ot V74.8 10/31/2014 ANNABEL LINTON, ABBY S Ot V72.84 10/31/2014 GREGGCHRISTOPHRE N Ot 280.9 10/31/2014 GREGG BOBAN N Ot V58.69 10/31/2014 THOMASDAVID LYONS Fiordaliza ARTILLERY OFFICER Ot 272.0 10/31/2014 GREGGCHRISTOPHER BABCOCK N Ot 280.9 10/31/2014 GREGG BOBAN N Ot V58.69 11/28/2014 GREGG BOBAN N Ot 280.9 11/28/2014 GREGG BOBAN N Ot V58.69 11/29/2014 GAYTANMAHSA Sadler S ARTILLERY OFFICER Ot 185 11/29/2014 GAYTANMAHSA Sadler S ARTILLERY OFFICER Ot 204.10 11/29/2014 GAYTANMAHSA Sadler S ARTILLERY OFFICER Ot 280.9 11/29/2014 GAYTANMAHSA Sadler S ARTILLERY OFFICER Ot 425.4 11/29/2014 MAHSA GAYTAN ARTILLERY OFFICER Ot 530.81 11/29/2014 MAHSA GAYTAN ARTILLERY OFFICER Ot 530.85 11/29/2014 MAHSA GAYTAN ARTILLERY OFFICER Ot V45.01 11/29/2014 MAHSA GAYTAN ARTILLERY OFFICER Ot V58.69 12/29/2014 Ot 272.4 12/29/2014 Ot 397.0 12/29/2014 Ot 401.9 12/29/2014 Ot 414.01 12/29/2014 Ot 424.0 12/29/2014 Ot 428.0 12/29/2014 Ot 204.10 12/29/2014 Ot 440.20 12/29/2014 Ot 788.30 12/29/2014 Ot V10.46 12/29/2014 Ot V58.66 12/29/2014 Ot V58.69 12/29/2014 Ot 204.10 12/29/2014 Ot V10.46 12/29/2014 Ot V58.69 12/29/2014 Ot 272.4 12/29/2014 Ot 401.9 12/29/2014 Ot 414.01 12/29/2014 Ot 272.4 12/29/2014 Ot 427.1 12/29/2014 Ot 428.0 12/29/2014 Ot 272.4 12/29/2014 Ot 396.3 12/29/2014 Ot 397.0 12/29/2014 Ot 427.2 12/29/2014 Ot 272.4 12/29/2014 Ot V58.69 12/29/2014 Ot 204.10 12/29/2014 Ot 305.1 12/29/2014 Ot V10.46 12/29/2014 Ot V58.66 12/29/2014 Ot V58.69 12/29/2014 Ot 433.30 12/29/2014 Ot 204.10 12/29/2014 Ot 788.30 12/29/2014 Ot V10.46 12/29/2014 Ot V58.66 12/29/2014 Ot V58.69 12/29/2014 Ot 204.10 12/29/2014 Ot 585.3 12/29/2014 Ot V10.46 12/29/2014 Ot V58.66 12/29/2014 Ot V58.69 12/29/2014 Ot 272.4 12/29/2014 Ot 401.9 12/29/2014 Ot 414.01 12/29/2014 Ot V58.69 12/29/2014 Ot 204.10 12/29/2014 Ot 585.3 12/29/2014 Ot V10.46 12/29/2014 Ot V58.66 12/29/2014 Ot V58.69 12/29/2014 Ot 272.4 12/29/2014 Ot V58.69 12/29/2014 Ot 401.9 12/29/2014 Ot 414.00 12/29/2014 Ot 425.4 12/29/2014 Ot 780.79 12/29/2014 Ot 785.0 12/29/2014 Ot V58.66 12/29/2014 Ot V58.69 12/29/2014 Ot V72.63 12/29/2014 Ot V72.81 12/29/2014 Ot 250.00 12/29/2014 Ot 305.1 12/29/2014 Ot 401.9 12/29/2014 Ot 414.01 12/29/2014 Ot 425.4 12/29/2014 Ot V58.66 12/29/2014 Ot V58.69 12/29/2014 Ot V72.63 12/29/2014 Ot V72.81 12/29/2014 Ot 204.10 12/29/2014 Ot 425.4 12/29/2014 Ot 585.3 12/29/2014 Ot V10.46 12/29/2014 Ot V58.66 12/29/2014 Ot V58.69 12/29/2014 Ot 272.4 12/29/2014 Ot 401.9 12/29/2014 Ot V58.69 12/29/2014 Ot 272.4 12/29/2014 Ot 401.9 12/29/2014 Ot V58.69 12/29/2014 Ot 204.10 12/29/2014 Ot 425.4 12/29/2014 Ot 585.3 12/29/2014 Ot V10.46 12/29/2014 Ot V45.02 12/29/2014 Ot V58.66 12/29/2014 Ot V58.69 12/29/2014 Ot 272.4 12/29/2014 Ot 401.9 12/29/2014 Ot V58.69 12/29/2014 Ot 272.4 12/29/2014 Ot 401.9 12/29/2014 Ot V58.69 12/29/2014 Ot 272.4 12/29/2014 Ot 401.9 12/29/2014 Ot V58.69 12/29/2014 Ot 250.00 12/29/2014 MAHSA GAYTAN ARTILLERY OFFICER Ot 204.10 12/29/2014 MAHSA GAYTAN ARTILLERY OFFICER Ot 280.9 12/29/2014 MAHSA GAYTAN ARTILLERY OFFICER Ot 425.4 12/29/2014 MAHSA GAYTAN ARTILLERY OFFICER Ot 585.3 12/29/2014 MAHSA GAYTAN S ARTILLERY OFFICER Ot 786.07 12/29/2014 MAHSA GAYTAN S ARTILLERY OFFICER Ot V10.46 12/29/2014 MAHSA GAYTAN S ARTILLERY OFFICER Ot V45.01 12/29/2014 MAHSA GAYTAN S ARTILLERY OFFICER Ot V58.66 12/29/2014 MAHSA GAYTAN ARTILLERY OFFICER Ot V58.69 12/29/2014 DAVID FLORES ARTILLERY OFFICER Ot 272.4 12/29/2014 THOMASDAVID LYONS ARTILLERY OFFICER Ot V58.69 12/29/2014 MAHSA GAYTAN ARTILLERY OFFICER Ot 786.07 12/29/2014 ANNABEL LINTON, ABBY S Ot V72.84 12/29/2014 TOREY LINTON, Livier FLORES Ot 185 12/29/2014 MAHSA GAYTAN ARTILLERY OFFICER Ot 204.10 12/29/2014 MAHSA GAYTAN ARTILLERY OFFICER Ot 425.4 12/29/2014 MAHSA GAYTAN ARTILLERY OFFICER Ot V10.46 12/29/2014 MAHSA GAYTAN ARTILLERY OFFICER Ot V45.01 12/29/2014 MAHSA GAYTAN ARTILLERY OFFICER Ot V58.66 12/29/2014 GAYTANMAHSA Sadler ARTILLERY OFFICER Ot V58.69 12/29/2014 ANNABEL LINTON, ABBY S Ot 530.85 12/29/2014 ANNABEL LINTON, ABBY S Ot V72.63 12/29/2014 ANNABEL LINTON, ABBY S Ot V72.81 12/29/2014 ANNABEL LINTON, ABBY S Ot V74.8 12/29/2014 CHRISTOPHER ESCOBEDO Ot 185 12/29/2014 CHRISTOPHER ESCOBEDO Ot 790.93 12/29/2014 TRAV LINTON FAC, [facility] CCDS Ot 425.4 12/29/2014 ANNABEL LINTON, ABBY S Ot V72.84 12/29/2014 DAVID FLORES ARTILLERY OFFICER Ot 272.4 12/29/2014 DAVID FLORES ARTILLERY OFFICER Ot 401.9 12/29/2014 DAVID FLORES ARTILLERY OFFICER Ot 414.00 12/29/2014 DAVID FLORES ARTILLERY OFFICER Ot V58.69 12/29/2014 MAHSA GAYTAN S ARTILLERY OFFICER Ot 204.10 12/29/2014 MAHSA GAYTAN S ARTILLERY OFFICER Ot 280.9 12/29/2014 MAHSA GAYTAN S ARTILLERY OFFICER Ot 414.00 12/29/2014 GAYTANMAHSA Sadler S ARTILLERY OFFICER Ot 425.4 12/29/2014 MAHSA GAYTAN S ARTILLERY OFFICER Ot 530.81 12/29/2014 MAHSA GAYTAN S ARTILLERY OFFICER Ot V10.46 12/29/2014 MAHSA GAYTAN S ARTILLERY OFFICER Ot V45.02 12/29/2014 GAYTANMAHSA Sadler S ARTILLERY OFFICER Ot V58.69 12/29/2014 THOMASDAVID LYONS ARTILLERY OFFICER Ot 272.4 12/29/2014 DAVID FLORES ARTILLERY OFFICER Ot 401.9 12/29/2014 MAHSA GAYTAN S ARTILLERY OFFICER Ot 204.10 12/29/2014 MAHSA GAYTAN S ARTILLERY OFFICER Ot 280.9 12/29/2014 MAHSA GAYTAN S ARTILLERY OFFICER Ot 414.00 12/29/2014 MAHSA GAYTAN S ARTILLERY OFFICER Ot 425.4 12/29/2014 GAYTANMAHSA Sadler S ARTILLERY OFFICER Ot 530.81 12/29/2014 GAYTANMAHSA Sadler S ARTILLERY OFFICER Ot V10.46 12/29/2014 GAYTANMAHSA Sadler S ARTILLERY OFFICER Ot V45.02 12/29/2014 GAYTANMAHSA Sadler S ARTILLERY OFFICER Ot V58.69 12/29/2014 ANNABEL LINTON, ABBY S Ot 574.20 12/29/2014 LUCILA ELIESERAH S ARTILLERY OFFICER Ot 185 12/29/2014 GAYTANMAHSA Sadler S ARTILLERY OFFICER Ot 793.99 12/29/2014 ANNABEL LINTON, ABBY S Ot 492.8 12/29/2014 ANNABEL LINTON, ABBY S Ot 530.81 12/29/2014 ANNABEL LINTON, ABBY S Ot 574.20 12/29/2014 ANNABEL LINTON, ABBY S Ot V72.83 12/29/2014 ANNABEL LINTON, ABBY S Ot V74.8 12/29/2014 ANNABEL LINTON, ABBY S Ot V72.84 12/29/2014 CHRISTOPHER ESCOBEDO N Ot 280.9 12/29/2014 CHRISTOPHER ESCOBEDO N Ot V58.69 12/29/2014 DAVID FLORES ARTILLERY OFFICER Ot 272.0 12/29/2014 GAYTAN MAHSA S ARTILLERY OFFICER Ot 185 12/29/2014 GAYTANMAHSA Sadler S ARTILLERY OFFICER Ot 204.10 12/29/2014 GAYTANMAHSA Sadler S ARTILLERY OFFICER Ot 280.9 12/29/2014 GAYTANMAHSA Sadler S ARTILLERY OFFICER Ot 425.4 12/29/2014 GAYTANMAHSA Sadler S ARTILLERY OFFICER Ot 530.81 12/29/2014 GAYTANMAHSA S ARTILLERY OFFICER Ot 530.85 12/29/2014 GAYTANMAHSA Sadler S ARTILLERY OFFICER Ot V45.01 12/29/2014 GAYTAN MAHSA S ARTILLERY OFFICER Ot V58.69 12/29/2014 POPEYE DUMONT MD Ot 721.3 LUMBOSACRAL SPONDYLOSIS 12/29/2014 POPEYE DUMONT MD Ot 722.52 LUMB/LUMBOSAC DISC DEGEN 12/29/2014 POPEYE DUMONT MD Ot V58.69 OTH MED,LT,CURRENT USE 01/21/2015 GREGGCHRISTOPHER BABCOCK N Ot 280.9 IRON DEFIC ANEMIA NOS 01/21/2015 GREGG CHRISTOPHER N Ot V58.69 OTH MED,LT,CURRENT USE 01/23/2015 GREGG BOBAN N Ot 280.9 01/23/2015 GREGG BOBAN N Ot V58.69 01/23/2015 GREGG, BOBAN N Ot 280.9 01/23/2015 GREGG BOBAN N Ot V58.69 03/01/2015 Ot 786.07 03/09/2015 Ot 786.07 05/24/2015 POPEYE DUMONT MD Ot 721.3 05/24/2015 POPEYE DUMONT MD Ot 722.52 05/24/2015 POPEYE DUMONT MD, Ot V58.69 05/25/2015 POPEYE DUMONT MD Ot 721.3 05/25/2015 POPEYE DUMONT MD Ot 722.52 05/25/2015 POPEYE DUMONT MD Ot V58.69 06/11/2015 CHRISTOPHER ESCOBEDO N Ot 280.9 06/11/2015 CHRISTOPHER ESCOBEDO N Ot V58.69 06/12/2015 CHRISTOPHER ESCOBEDO N Ot 280.9 06/12/2015 CHRISTOPHER ESCOBEDO N Ot V58.69 08/01/2015 Ot 272.4 08/01/2015 Ot 427.1 08/01/2015 Ot 428.0 08/01/2015 Ot 272.4 08/01/2015 Ot 396.3 08/01/2015 Ot 397.0 08/01/2015 Ot 427.2 08/01/2015 Ot 272.4 08/01/2015 Ot V58.69 08/01/2015 Ot 204.10 08/01/2015 Ot 305.1 08/01/2015 Ot V10.46 08/01/2015 Ot V58.66 08/01/2015 Ot V58.69 08/01/2015 Ot 433.30 08/01/2015 Ot 204.10 08/01/2015 Ot 788.30 08/01/2015 Ot V10.46 08/01/2015 Ot V58.66 08/01/2015 Ot V58.69 08/01/2015 Ot 204.10 08/01/2015 Ot 585.3 08/01/2015 Ot V10.46 08/01/2015 Ot V58.66 08/01/2015 Ot V58.69 08/01/2015 Ot 272.4 08/01/2015 Ot 401.9 08/01/2015 Ot 414.01 08/01/2015 Ot V58.69 08/01/2015 Ot 204.10 08/01/2015 Ot 585.3 08/01/2015 Ot V10.46 08/01/2015 Ot V58.66 08/01/2015 Ot V58.69 08/01/2015 Ot 272.4 08/01/2015 Ot V58.69 08/01/2015 Ot 401.9 08/01/2015 Ot 414.00 08/01/2015 Ot 425.4 08/01/2015 Ot 780.79 08/01/2015 Ot 785.0 08/01/2015 Ot V58.66 08/01/2015 Ot V58.69 08/01/2015 Ot V72.63 08/01/2015 Ot V72.81 08/01/2015 Ot 250.00 08/01/2015 Ot 305.1 08/01/2015 Ot 401.9 08/01/2015 Ot 414.01 08/01/2015 Ot 425.4 08/01/2015 Ot V58.66 08/01/2015 Ot V58.69 08/01/2015 Ot V72.63 08/01/2015 Ot V72.81 08/01/2015 Ot 204.10 08/01/2015 Ot 425.4 08/01/2015 Ot 585.3 08/01/2015 Ot V10.46 08/01/2015 Ot V58.66 08/01/2015 Ot V58.69 08/01/2015 Ot 272.4 08/01/2015 Ot 401.9 08/01/2015 Ot V58.69 08/01/2015 Ot 272.4 08/01/2015 Ot 401.9 08/01/2015 Ot V58.69 08/01/2015 Ot 204.10 08/01/2015 Ot 425.4 08/01/2015 Ot 585.3 08/01/2015 Ot V10.46 08/01/2015 Ot V45.02 08/01/2015 Ot V58.66 08/01/2015 Ot V58.69 08/01/2015 Ot 272.4 08/01/2015 Ot 401.9 08/01/2015 Ot V58.69 08/01/2015 Ot 272.4 08/01/2015 Ot 401.9 08/01/2015 Ot V58.69 08/01/2015 Ot 272.4 08/01/2015 Ot 401.9 08/01/2015 Ot V58.69 08/01/2015 Ot 250.00 08/01/2015 MAHSA GAYTAN ARTILLERY OFFICER Ot 204.10 08/01/2015 MAHSA GAYTAN ARTILLERY OFFICER Ot 280.9 08/01/2015 MAHSA GAYTANP Ot 425.4 08/01/2015 MAHSA GAYTAN ARTILLERY OFFICER Ot 585.3 08/01/2015 MAHSA GAYTAN ARTILLERY OFFICER Ot 786.07 08/01/2015 MAHSA GAYTAN ARTILLERY OFFICER Ot V10.46 08/01/2015 MAHSA GAYTAN ARTILLERY OFFICER Ot V45.01 08/01/2015 MAHSA GAYTAN ARTILLERY OFFICER Ot V58.66 08/01/2015 GAYTANMAHSA Sadler S ARTILLERY OFFICER Ot V58.69 08/01/2015 MARK DAVID Fiordaliza ARTILLERY OFFICER Ot 272.4 08/01/2015 THOMASSERENA DAVID L ARTILLERY OFFICER Ot V58.69 08/01/2015 GAYTANMAHSA S ARTILLERY OFFICER Ot 786.07 08/01/2015 ANNABEL LINTON, ABBY S Ot V72.84 08/01/2015 TOREY LINTON, J SANDRA Ot 185 08/01/2015 LUCILA MAHSA S ARTILLERY OFFICER Ot 204.10 08/01/2015 LUCILA MAHSA S ARTILLERY OFFICER Ot 425.4 08/01/2015 LUCILA MAHSA S ARTILLERY OFFICER Ot V10.46 08/01/2015 LUCILA ELIESERAH S ARTILLERY OFFICER Ot V45.01 08/01/2015 LUCILA MAHSA S ARTILLERY OFFICER Ot V58.66 08/01/2015 LUCILA MAHSA S ARTILLERY OFFICER Ot V58.69 08/01/2015 ANNABEL LINTON, ABBY S Ot 530.85 08/01/2015 ANNABEL LINTON, ABBY S Ot V72.63 08/01/2015 ANNABEL LINTON, ABBY S Ot V72.81 08/01/2015 ANNABEL LINTON, ABBY S Ot V74.8 08/01/2015 CHRISTOPHER ESCOBEDO Ot 185 08/01/2015 CHRISTOPHER ESCOBEDO Ot 790.93 08/01/2015 TRAV [facility] CCDS Ot 425.4 08/01/2015 ANNABEL LINTON, ABBY S Ot V72.84 08/01/2015 MARK DAVID Fiordaliza ARTILLERY OFFICER Ot 272.4 08/01/2015 MARK DAVID Fiordaliza ARTILLERY OFFICER Ot 401.9 08/01/2015 MARK DAVID L ARTILLERY OFFICER Ot 414.00 08/01/2015 THOMASSERENA DAVID L ARTILLERY OFFICER Ot V58.69 08/01/2015 LUCILA MAHSA S ARTILLERY OFFICER Ot 204.10 08/01/2015 LUCILA MAHSA S ARTILLERY OFFICER Ot 280.9 08/01/2015 LUCILA MAHSA S ARTILLERY OFFICER Ot 414.00 08/01/2015 LUCILA MAHSA S ARTILLERY OFFICER Ot 425.4 08/01/2015 LUCILA MAHSA S ARTILLERY OFFICER Ot 530.81 08/01/2015 MAHSA GAYTAN ARTILLERY OFFICER Ot V10.46 08/01/2015 GAYTANMAHSA Sadler S ARTILLERY OFFICER Ot V45.02 08/01/2015 MAHSA GAYTAN S ARTILLERY OFFICER Ot V58.69 08/01/2015 DAVID FLORES ARTILLERY OFFICER Ot 272.4 08/01/2015 DAVID FLORES ARTILLERY OFFICER Ot 401.9 08/01/2015 GAYTANMAHSA Sadler S ARTILLERY OFFICER Ot 204.10 08/01/2015 GAYTANMAHSA Sadler S ARTILLERY OFFICER Ot 280.9 08/01/2015 GAYTANMAHSA Sadler S ARTILLERY OFFICER Ot 414.00 08/01/2015 GAYTANMAHSA Sadler S ARTILLERY OFFICER Ot 425.4 08/01/2015 MAHSA GAYTAN S ARTILLERY OFFICER Ot 530.81 08/01/2015 MAHSA GAYTAN S ARTILLERY OFFICER Ot V10.46 08/01/2015 GAYTANMAHSA Sadler S ARTILLERY OFFICER Ot V45.02 08/01/2015 GAYTANMAHSA Sadler S ARTILLERY OFFICER Ot V58.69 08/01/2015 ANNABEL LINTON, ABBY S Ot 574.20 08/01/2015 GAYTANMAHSA Sadler S ARTILLERY OFFICER Ot 185 08/01/2015 GAYTANMAHSA Sadler S ARTILLERY OFFICER Ot 793.99 08/01/2015 ANNABEL LINTON, ABBY S Ot 492.8 08/01/2015 ANNABEL LINTON, ABBY S Ot 530.81 08/01/2015 ANNABEL LINTON, ABBY S Ot 574.20 08/01/2015 ANNABEL LINTON, ABBY S Ot V72.83 08/01/2015 ANNABEL LINTON, ABBY S Ot V74.8 08/01/2015 ANNABEL LINTON, ABBY S Ot V72.84 08/01/2015 DAVID FLORES ARTILLERY OFFICER Ot 272.0 08/01/2015 GAYTANMAHSA Sadler S ARTILLERY OFFICER Ot 185 08/01/2015 GAYTANMAHSA Sadler S ARTILLERY OFFICER Ot 204.10 08/01/2015 GAYTANMAHSA Sadler S ARTILLERY OFFICER Ot 280.9 08/01/2015 GAYTANMAHSA Sadler S ARTILLERY OFFICER Ot 425.4 08/01/2015 GAYTAN MAHSA S ARTILLERY OFFICER Ot 530.81 08/01/2015 GAYTAN MAHSA S ARTILLERY OFFICER Ot 530.85 08/01/2015 MAHSA GAYTAN S ARTILLERY OFFICER Ot V45.01 08/01/2015 GAYTANMAHSA Sadler S ARTILLERY OFFICER Ot V58.69 08/01/2015 GREGGCHRISTOPHER BABCOCK N Ot 280.9 08/01/2015 CHRISTOPHER ESCOBEDO N Ot V58.69 08/01/2015 Ot 786.07 08/01/2015 JULIA LINTON, POPEYE Maier Ot 721.3 08/01/2015 JULIA LINTON, POPEYE Maier Ot 722.52 08/01/2015 JULIA LINTON, POPEYE Maier Ot V58.69 08/01/2015 GAYTANMAHSA Sadler S ARTILLERY OFFICER Ot 185 08/01/2015 GAYTANELIESERAH S ARTILLERY OFFICER Ot 204.10 08/01/2015 GAYTANELIESERAH S ARTILLERY OFFICER Ot 280.9 08/01/2015 GAYTANELIESERAH S ARTILLERY OFFICER Ot 425.4 08/01/2015 GAYTANELIESERAH S ARTILLERY OFFICER Ot 530.81 08/01/2015 GAYTAN, ELIESERAH S ARTILLERY OFFICER Ot 530.85 08/01/2015 GAYTANELIESERAH S ARTILLERY OFFICER Ot V45.01 08/01/2015 GAYTANELIESERAH S ARTILLERY OFFICER Ot V58.69 08/01/2015 GAYTANELIESERAH S ARTILLERY OFFICER Ot 185 08/01/2015 GAYTAN, ELIESERAH S ARTILLERY OFFICER Ot 204.10 08/01/2015 GAYTANELIESERAH S ARTILLERY OFFICER Ot 280.9 08/01/2015 GAYTANELIESERAH S ARTILLERY OFFICER Ot 425.4 08/01/2015 GAYTANELIESERAH S ARTILLERY OFFICER Ot 530.81 08/01/2015 GAYTANELIESERAH S ARTILLERY OFFICER Ot 530.85 08/01/2015 GAYTANELIESERAH S ARTILLERY OFFICER Ot V45.01 08/01/2015 GAYTANELIESERAH S ARTILLERY OFFICER Ot V58.69 08/01/2015 CHRISTOPHER ESCOBEDO N Ot 280.9 08/01/2015 GREGGCHRISTOPHER BABCOCK N Ot V58.69 08/07/2015 MARY SAGASTUME MD Ot 443.9 08/09/2015 GAYTANMAHSA S ARTILLERY OFFICER Ot 185 08/09/2015 GAYTAN ELIESERAH S ARTILLERY OFFICER Ot 204.10 08/09/2015 GAYTAN ELIESERAH S ARTILLERY OFFICER Ot 280.9 08/09/2015 GAYTAN HILAH S ARTILLERY OFFICER Ot 425.4 08/09/2015 GAYTANMAHSA Sadler ARTILLERY OFFICER Ot 530.81 08/09/2015 MAHSA GAYTAN ARTILLERY OFFICER Ot 530.85 08/09/2015 MAHSA GAYTAN S ARTILLERY OFFICER Ot V45.01 08/09/2015 MAHSA GAYTAN S ARTILLERY OFFICER Ot V58.69 08/13/2015 GREGG, CHRISTOPHER Lowery Ot 280.9 08/13/2015 GREGGCHRISTOPHER Ot V58.69 08/14/2015 GAYTANMAHSA Sadler S ARTILLERY OFFICER Ot 185 08/14/2015 GAYTANMAHSA Sadler S ARTILLERY OFFICER Ot 204.10 08/14/2015 MAHSA GAYTAN S ARTILLERY OFFICER Ot 280.9 08/14/2015 GAYTANMAHSA Sadler S ARTILLERY OFFICER Ot 425.4 08/14/2015 MAHSA GAYTAN S ARTILLERY OFFICER Ot 530.81 08/14/2015 MAHSA GAYTAN S ARTILLERY OFFICER Ot 530.85 08/14/2015 GAYTANMAHSA Sadler S ARTILLERY OFFICER Ot V45.01 08/14/2015 GAYTANMAHSA Sadler ARTILLERY OFFICER Ot V58.69 08/21/2015 MARY SAGASTUME MD Ot 443.9 08/22/2015 MARY SAGASTUME MD Ot 724.02 08/27/2015 MARY SAGASTUME MD Ot 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 08/27/2015 MARY SAGASTUME MD Ot 204.10 CHRONIC LYMPHOID LEUKEMIA, W/O MENTION A 08/27/2015 MARY SAGASTUME MD Ot V10.46 HX-PROSTATIC MALIGNANCY 08/27/2015 MARY SAGASTUME MD, Ot V58.69 OTH MED,LT,CURRENT USE 08/27/2015 MARY SAGASTUME MD Ot 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 08/27/2015 MARY SAGASTUME MD Ot 204.10 CHRONIC LYMPHOID LEUKEMIA, W/O MENTION A 08/27/2015 MARY SAGASTUME MD Ot V10.46 HX-PROSTATIC MALIGNANCY 08/27/2015 MARY SAGASTUME MD Ot V58.69 OTH MED,LT,CURRENT USE 08/29/2015 CHRISTOPHER ESCOBEDO Ot 280.9 IRON DEFIC ANEMIA NOS 08/29/2015 CHRISTOPHER ESCOBEDO Ot V58.69 OTH MED,LT,CURRENT USE 08/29/2015 MITESH LINTON, MARY J Ot 443.9 08/29/2015 MITESH LINTON, MARY Maier Ot 724.02 09/05/2015 GAYTANMAHSA Sadler S ARTILLERY OFFICER Ot 185 09/05/2015 GAYTANMAHSA Sadler S ARTILLERY OFFICER Ot 204.10 09/05/2015 MAHSA GAYTAN S ARTILLERY OFFICER Ot 280.9 09/05/2015 GAYTANMAHSA Sadler S ARTILLERY OFFICER Ot 425.4 09/05/2015 MAHSA GAYTAN S ARTILLERY OFFICER Ot 530.81 09/05/2015 GAYTANMAHSA Sadler S ARTILLERY OFFICER Ot 530.85 09/05/2015 GAYTANMAHSA Sadler S ARTILLERY OFFICER Ot V45.01 09/05/2015 GAYTANMAHSA Sadler S ARTILLERY OFFICER Ot V58.69 09/12/2015 MITESH LINTON, MARY Maier Ot 782.2 09/12/2015 MITESH LINTON, MARY Maier Ot V72.63 09/12/2015 MITESH LINTON, MARY Maier Ot V74.8 10/02/2015 GAYTANMAHSA Sadler S ARTILLERY OFFICER Ot 185 10/02/2015 MAHSA GAYTAN S ARTILLERY OFFICER Ot 204.10 10/02/2015 MAHSA GAYTAN S ARTILLERY OFFICER Ot 280.9 10/02/2015 MAHSA GAYTAN S ARTILLERY OFFICER Ot 425.4 10/02/2015 MAHSA GAYTAN S ARTILLERY OFFICER Ot 530.81 10/02/2015 MAHSA GAYTAN S ARTILLERY OFFICER Ot 530.85 10/02/2015 MAHSA GAYTAN S ARTILLERY OFFICER Ot V45.01 10/02/2015 GAYTAN MAHSA S ARTILLERY OFFICER Ot V58.69 10/22/2015 GREGG BOBAN N Ot C91.10 10/22/2015 GREGG, BOBAN N Ot D50.9 10/22/2015 GREGG, BOBAN N Ot I42.9 10/22/2015 GREGG, BOBAN N Ot K21.9 10/22/2015 GREGG, BOBAN N Ot R97.2 10/22/2015 GREGG, BOBAN N Ot Z79.899 10/22/2015 GREGG, BOBAN N Ot Z85.46 10/22/2015 GREGG BOBAN N Ot Z95.810 10/29/2015 DAVID FLORES ARTILLERY OFFICER Ot I10 10/29/2015 DAVID FLORES ARTILLERY OFFICER Ot I42.9 10/29/2015 DAVID FLORES ARTILLERY OFFICER Ot I77.9 10/29/2015 DAVID FLORES ARTILLERY OFFICER Ot J44.9 10/29/2015 DAVID FLORES ARTILLERY OFFICER Ot Z95.810 10/30/2015 CHRISTOPHER ESCOBEDO N Ot C91.10 10/30/2015 GREGGCHRISTOPHER BABCOCK N Ot D50.9 10/30/2015 GREGGCHRISTOPHER BABCOCK N Ot I42.9 10/30/2015 CHRISTOPHER ESCOBEDO N Ot K21.9 10/30/2015 GREGGCHRISTOPHER BABCOCK N Ot R97.2 10/30/2015 CHRISTOPHER ESCOBEDO N Ot Z79.899 10/30/2015 GREGGCHRISTOPHER BABCOCK N Ot Z85.46 10/30/2015 CHRISTOPHER ESCOBEDO N Ot Z95.810 11/01/2015 DAVID FLORES ARTILLERY OFFICER Ot I10 11/01/2015 DAVDI FLORES ARTILLERY OFFICER Ot I42.9 11/01/2015 DAVID FLORES ARTILLERY OFFICER Ot I77.9 11/01/2015 DAVID FLORES ARTILLERY OFFICER Ot J44.9 11/01/2015 DAVID FLORES ARTILLERY OFFICER Ot Z95.810 11/05/2015 Ot 427.1 11/05/2015 Ot 428.0 11/05/2015 Ot 272.4 11/05/2015 Ot 396.3 11/05/2015 Ot 397.0 11/05/2015 Ot 427.2 11/05/2015 Ot 272.4 11/05/2015 Ot V58.69 11/05/2015 Ot 204.10 11/05/2015 Ot 305.1 11/05/2015 Ot V10.46 11/05/2015 Ot V58.66 11/05/2015 Ot V58.69 11/05/2015 Ot 433.30 11/05/2015 Ot 204.10 11/05/2015 Ot 788.30 11/05/2015 Ot V10.46 11/05/2015 Ot V58.66 11/05/2015 Ot V58.69 11/05/2015 Ot 204.10 11/05/2015 Ot 585.3 11/05/2015 Ot V10.46 11/05/2015 Ot V58.66 11/05/2015 Ot V58.69 11/05/2015 Ot 272.4 11/05/2015 Ot 401.9 11/05/2015 Ot 414.01 11/05/2015 Ot V58.69 11/05/2015 Ot 204.10 11/05/2015 Ot 585.3 11/05/2015 Ot V10.46 11/05/2015 Ot V58.66 11/05/2015 Ot V58.69 11/05/2015 Ot 272.4 11/05/2015 Ot V58.69 11/05/2015 Ot 401.9 11/05/2015 Ot 414.00 11/05/2015 Ot 425.4 11/05/2015 Ot 780.79 11/05/2015 Ot 785.0 11/05/2015 Ot V58.66 11/05/2015 Ot V58.69 11/05/2015 Ot V72.63 11/05/2015 Ot V72.81 11/05/2015 Ot 250.00 11/05/2015 Ot 305.1 11/05/2015 Ot 401.9 11/05/2015 Ot 414.01 11/05/2015 Ot 425.4 11/05/2015 Ot V58.66 11/05/2015 Ot V58.69 11/05/2015 Ot V72.63 11/05/2015 Ot V72.81 11/05/2015 Ot 204.10 11/05/2015 Ot 425.4 11/05/2015 Ot 585.3 11/05/2015 Ot V10.46 11/05/2015 Ot V58.66 11/05/2015 Ot V58.69 11/05/2015 Ot 272.4 11/05/2015 Ot 401.9 11/05/2015 Ot V58.69 11/05/2015 Ot 272.4 11/05/2015 Ot 401.9 11/05/2015 Ot V58.69 11/05/2015 Ot 204.10 11/05/2015 Ot 425.4 11/05/2015 Ot 585.3 11/05/2015 Ot V10.46 11/05/2015 Ot V45.02 11/05/2015 Ot V58.66 11/05/2015 Ot V58.69 11/05/2015 Ot 272.4 11/05/2015 Ot 401.9 11/05/2015 Ot V58.69 11/05/2015 Ot 272.4 11/05/2015 Ot 401.9 11/05/2015 Ot V58.69 11/05/2015 Ot 272.4 11/05/2015 Ot 401.9 11/05/2015 Ot V58.69 11/05/2015 Ot 250.00 11/05/2015 MAHSA GAYTAN ARTILLERY OFFICER Ot 204.10 11/05/2015 GAYTANMAHSA Sadler ARTILLERY OFFICER Ot 280.9 11/05/2015 GAYTANMAHSA Sadler S ARTILLERY OFFICER Ot 425.4 11/05/2015 GAYTANMAHSA Sadler S ARTILLERY OFFICER Ot 585.3 11/05/2015 GAYTANMAHSA Sadler S ARTILLERY OFFICER Ot 786.07 11/05/2015 MAHSA GAYTAN S ARTILLERY OFFICER Ot V10.46 11/05/2015 MAHSA GAYTAN S ARTILLERY OFFICER Ot V45.01 11/05/2015 MAHSA GAYTAN S ARTILLERY OFFICER Ot V58.66 11/05/2015 MAHSA GAYTAN S ARTILLERY OFFICER Ot V58.69 11/05/2015 THOMASSERENA DAVID Fiordaliza ARTILLERY OFFICER Ot 272.4 11/05/2015 BAISERENA DAVID Fiordaliza ARTILLERY OFFICER Ot V58.69 11/05/2015 GAYTANMAHSA Sadler S ARTILLERY OFFICER Ot 786.07 11/05/2015 ANNABEL LINTON, ABBY Sadler Ot V72.84 11/05/2015 TOREY LINTON, Livier FLORES Ot 185 11/05/2015 GAYTANMAHSA Sadler ARTILLERY OFFICER Ot 204.10 11/05/2015 GAYTANMAHSA Sadler ARTILLERY OFFICER Ot 425.4 11/05/2015 GAYTANMAHSA Sadler ARTILLERY OFFICER Ot V10.46 11/05/2015 GAYTANMAHSA Sadler S ARTILLERY OFFICER Ot V45.01 11/05/2015 GAYTANMAHSA Sadler S ARTILLERY OFFICER Ot V58.66 11/05/2015 GAYTANMAHSA Sadler S ARTILLERY OFFICER Ot V58.69 11/05/2015 ANNABEL LINTON, ABBY S Ot 530.85 11/05/2015 ANNABEL LINTON, ABBY Sadler Ot V72.63 11/05/2015 ANNABEL LINTON, ABBY Sadler Ot V72.81 11/05/2015 ANNABEL LINTON, ABBY Sadler Ot V74.8 11/05/2015 CHRISTOPHER ESCOBEDO Ot 185 11/05/2015 CHRISTOPHER ESCOBEDO N Ot 790.93 11/05/2015 TRAV [facility] CCDS Ot 425.4 11/05/2015 ANNABEL LINTON, ABBY Sadler Ot V72.84 11/05/2015 DAVID FLORES L ARTILLERY OFFICER Ot 272.4 11/05/2015 BAIDAVID LYONS L ARTILLERY OFFICER Ot 401.9 11/05/2015 BAIDAVID LYONS L ARTILLERY OFFICER Ot 414.00 11/05/2015 BAIDAVID LYONS L ARTILLERY OFFICER Ot V58.69 11/05/2015 GAYTAN HILAH S ARTILLERY OFFICER Ot 204.10 11/05/2015 GAYTAN HILAH S ARTILLERY OFFICER Ot 280.9 11/05/2015 GAYTAN HILAH S ARTILLERY OFFICER Ot 414.00 11/05/2015 GAYTAN HILAH S ARTILLERY OFFICER Ot 425.4 11/05/2015 GAYTAN HILAH S ARTILLERY OFFICER Ot 530.81 11/05/2015 GAYTAN HILAH S ARTILLERY OFFICER Ot V10.46 11/05/2015 GAYTAN HILAH S ARTILLERY OFFICER Ot V45.02 11/05/2015 GAYTAN HILAH S ARTILLERY OFFICER Ot V58.69 11/05/2015 BAIDAVID LYONS L ARTILLERY OFFICER Ot 272.4 11/05/2015 BAIDAVID LYONS L ARTILLERY OFFICER Ot 401.9 11/05/2015 GAYTAN HILAH S ARTILLERY OFFICER Ot 204.10 11/05/2015 GAYTAN HILAH S ARTILLERY OFFICER Ot 280.9 11/05/2015 GAYTAN HILAH S ARTILLERY OFFICER Ot 414.00 11/05/2015 GAYTAN HILAH S ARTILLERY OFFICER Ot 425.4 11/05/2015 GAYTAN HILAH S ARTILLERY OFFICER Ot 530.81 11/05/2015 GAYTAN HILAH S ARTILLERY OFFICER Ot V10.46 11/05/2015 GAYTAN HILAH S ARTILLERY OFFICER Ot V45.02 11/05/2015 GAYTAN HILAH S ARTILLERY OFFICER Ot V58.69 11/05/2015 ANNABEL LINTON, ABBY Sadler Ot 574.20 11/05/2015 LUCILA HILAH S ARTILLERY OFFICER Ot 185 11/05/2015 LUCILA HILAH S ARTILLERY OFFICER Ot 793.99 11/05/2015 ANNABEL LINTON, ABBY Sadler Ot 492.8 11/05/2015 ANNABEL LINTON, ABBY S Ot 530.81 11/05/2015 ANNABEL LINTON, ABBY S Ot 574.20 11/05/2015 ANNABEL LINTON, ABBY S Ot V72.83 11/05/2015 ANNABEL LINTON, ABBY S Ot V74.8 11/05/2015 ANNABEL LINTON, ABBY S Ot V72.84 11/05/2015 MARK DAVID Fiordaliza ARTILLERY OFFICER Ot 272.0 11/05/2015 GAYTANMAHSA Sadler S ARTILLERY OFFICER Ot 185 11/05/2015 GAYTANMAHSA Sadler S ARTILLERY OFFICER Ot 204.10 11/05/2015 GAYTANMAHSA Sadler S ARTILLERY OFFICER Ot 280.9 11/05/2015 GAYTANMAHSA Sadler S ARTILLERY OFFICER Ot 425.4 11/05/2015 MAHSA GAYTAN S ARTILLERY OFFICER Ot 530.81 11/05/2015 GAYTANMAHSA Sadler S ARTILLERY OFFICER Ot 530.85 11/05/2015 MAHSA GAYTAN S ARTILLERY OFFICER Ot V45.01 11/05/2015 MAHSA GAYTAN S ARTILLERY OFFICER Ot V58.69 11/05/2015 Ot 786.07 11/05/2015 JULIA LINTON, POPEYE Maier Ot 721.3 11/05/2015 JULIA LINTON, POPEYE Maier Ot 722.52 11/05/2015 POPEYE DUMONT MD Ot V58.69 11/05/2015 GAYTANMAHSA Sadler S ARTILLERY OFFICER Ot 185 11/05/2015 MAHSA GAYTAN S ARTILLERY OFFICER Ot 204.10 11/05/2015 MAHSA GAYTAN S ARTILLERY OFFICER Ot 280.9 11/05/2015 GAYTANMAHSA Sadler S ARTILLERY OFFICER Ot 425.4 11/05/2015 GAYTANMAHSA Sadler S ARTILLERY OFFICER Ot 530.81 11/05/2015 GAYTANMAHSA Sadler S ARTILLERY OFFICER Ot 530.85 11/05/2015 GAYTANMAHSA Sadler S ARTILLERY OFFICER Ot V45.01 11/05/2015 GAYTANMAHSA Sadler S ARTILLERY OFFICER Ot V58.69 11/05/2015 MITESH LINTON, MARY Maier Ot 443.9 11/05/2015 MITESH LINTON, MARY Maier Ot 724.02 11/05/2015 MITESH LINTON, MRAY Maier Ot 782.2 11/05/2015 MITESH LINTON, MARY Maier Ot V72.63 11/05/2015 MITESH LINTON, MARY Maier Ot V74.8 11/05/2015 DAVID FLORES ARTILLERY OFFICER Ot I10 11/05/2015 DAVID FLORES ARTILLERY OFFICER Ot I42.9 11/05/2015 DAVID FLORES ARTILLERY OFFICER Ot I77.9 11/05/2015 DAVID FLORES ARTILLERY OFFICER Ot J44.9 11/05/2015 DAVID FLORES ARTILLERY OFFICER Ot Z95.810 11/05/2015 CHRISTOPHER ESCOBEDO N Ot C91.10 11/05/2015 CHRISTOPHER ESCOBEDO N Ot D50.9 11/05/2015 CHRISTOPHER ESCOBEDO N Ot I42.9 11/05/2015 CHRISTOPHER ESCOBEDO N Ot K21.9 11/05/2015 CHRISTOPHER ESCOBEDO N Ot R97.2 11/05/2015 CHRISTOPHER ESCOBEDO N Ot Z79.899 11/05/2015 CHRISTOPHER ESCOBEDO N Ot Z85.46 11/05/2015 CHRISTOPHER ESCOBEDO N Ot Z95.810 11/19/2015 Ot 272.4 11/19/2015 Ot 396.3 11/19/2015 Ot 397.0 11/19/2015 Ot 427.2 11/19/2015 Ot 272.4 11/19/2015 Ot V58.69 11/19/2015 Ot 204.10 11/19/2015 Ot 305.1 11/19/2015 Ot V10.46 11/19/2015 Ot V58.66 11/19/2015 Ot V58.69 11/19/2015 Ot 433.30 11/19/2015 Ot 204.10 11/19/2015 Ot 788.30 11/19/2015 Ot V10.46 11/19/2015 Ot V58.66 11/19/2015 Ot V58.69 11/19/2015 Ot 204.10 11/19/2015 Ot 585.3 11/19/2015 Ot V10.46 11/19/2015 Ot V58.66 11/19/2015 Ot V58.69 11/19/2015 Ot 272.4 11/19/2015 Ot 401.9 11/19/2015 Ot 414.01 11/19/2015 Ot V58.69 11/19/2015 Ot 204.10 11/19/2015 Ot 585.3 11/19/2015 Ot V10.46 11/19/2015 Ot V58.66 11/19/2015 Ot V58.69 11/19/2015 Ot 272.4 11/19/2015 Ot V58.69 11/19/2015 Ot 401.9 11/19/2015 Ot 414.00 11/19/2015 Ot 425.4 11/19/2015 Ot 780.79 11/19/2015 Ot 785.0 11/19/2015 Ot V58.66 11/19/2015 Ot V58.69 11/19/2015 Ot V72.63 11/19/2015 Ot V72.81 11/19/2015 Ot 250.00 11/19/2015 Ot 305.1 11/19/2015 Ot 401.9 11/19/2015 Ot 414.01 11/19/2015 Ot 425.4 11/19/2015 Ot V58.66 11/19/2015 Ot V58.69 11/19/2015 Ot V72.63 11/19/2015 Ot V72.81 11/19/2015 Ot 204.10 11/19/2015 Ot 425.4 11/19/2015 Ot 585.3 11/19/2015 Ot V10.46 11/19/2015 Ot V58.66 11/19/2015 Ot V58.69 11/19/2015 Ot 272.4 11/19/2015 Ot 401.9 11/19/2015 Ot V58.69 11/19/2015 Ot 272.4 11/19/2015 Ot 401.9 11/19/2015 Ot V58.69 11/19/2015 Ot 204.10 11/19/2015 Ot 425.4 11/19/2015 Ot 585.3 11/19/2015 Ot V10.46 11/19/2015 Ot V45.02 11/19/2015 Ot V58.66 11/19/2015 Ot V58.69 11/19/2015 Ot 272.4 11/19/2015 Ot 401.9 11/19/2015 Ot V58.69 11/19/2015 Ot 272.4 11/19/2015 Ot 401.9 11/19/2015 Ot V58.69 11/19/2015 Ot 272.4 11/19/2015 Ot 401.9 11/19/2015 Ot V58.69 11/19/2015 Ot 250.00 11/19/2015 MAHSA GAYTANP Ot 204.10 11/19/2015 MAHSA GAYTAN S ARTILLERY OFFICER Ot 280.9 11/19/2015 MAHSA GAYTAN S ARTILLERY OFFICER Ot 425.4 11/19/2015 MAHSA GAYTAN S ARTILLERY OFFICER Ot 585.3 11/19/2015 MAHSA GAYTAN S ARTILLERY OFFICER Ot 786.07 11/19/2015 MAHSA GAYTAN S ARTILLERY OFFICER Ot V10.46 11/19/2015 MAHSA GAYTAN S ARTILLERY OFFICER Ot V45.01 11/19/2015 MAHSA GAYTAN S ARTILLERY OFFICER Ot V58.66 11/19/2015 MAHSA GAYTAN S ARTILLERY OFFICER Ot V58.69 11/19/2015 DAVID FLORES ARTILLERY OFFICER Ot 272.4 11/19/2015 DAVID FLORES ARTILLERY OFFICER Ot V58.69 11/19/2015 MAHSA GAYTAN ARTILLERY OFFICER Ot 786.07 11/19/2015 ANNABEL LINTON, ABBY S Ot V72.84 11/19/2015 TOREY LINTON, Livier FLORES Ot 185 11/19/2015 MAHSA GAYTAN S ARTILLERY OFFICER Ot 204.10 11/19/2015 MAHSA GAYTAN ARTILLERY OFFICER Ot 425.4 11/19/2015 MAHSA GAYTAN ARTILLERY OFFICER Ot V10.46 11/19/2015 MAHSA GAYTAN ARTILLERY OFFICER Ot V45.01 11/19/2015 MAHSA GAYTAN S ARTILLERY OFFICER Ot V58.66 11/19/2015 MAHSA GAYTAN S ARTILLERY OFFICER Ot V58.69 11/19/2015 ANNABEL LINTON, ABBY S Ot 530.85 11/19/2015 ANNABEL LINTON, ABBY S Ot V72.63 11/19/2015 ANNABEL LINTON, ABBY S Ot V72.81 11/19/2015 ANNABEL LINTON, ABBY S Ot V74.8 11/19/2015 CHRISTOPHER ESCOBEDO Ot 185 11/19/2015 CHRISTOPHER ESCOBEDO Ot 790.93 11/19/2015 TRAV LINTON [facility] [address] CCDS Ot 425.4 11/19/2015 ANNABEL LINTON, ABBY S Ot V72.84 11/19/2015 DAVID FLORES ARTILLERY OFFICER Ot 272.4 11/19/2015 DAVID FLORES ARTILLERY OFFICER Ot 401.9 11/19/2015 DAVID FLORES ARTILLERY OFFICER Ot 414.00 11/19/2015 DAVID FLORES ARTILLERY OFFICER Ot V58.69 11/19/2015 MAHSA GAYTAN S ARTILLERY OFFICER Ot 204.10 11/19/2015 MAHSA GAYTAN S ARTILLERY OFFICER Ot 280.9 11/19/2015 MAHSA GAYTAN S ARTILLERY OFFICER Ot 414.00 11/19/2015 MAHSA GAYTAN S ARTILLERY OFFICER Ot 425.4 11/19/2015 MAHSA GAYTAN S ARTILLERY OFFICER Ot 530.81 11/19/2015 MAHSA GAYTAN S ARTILLERY OFFICER Ot V10.46 11/19/2015 MAHSA GAYTAN S ARTILLERY OFFICER Ot V45.02 11/19/2015 MAHSA GAYTAN S ARTILLERY OFFICER Ot V58.69 11/19/2015 DAVID FLORES ARTILLERY OFFICER Ot 272.4 11/19/2015 DAVID FLORES L ARTILLERY OFFICER Ot 401.9 11/19/2015 MAHSA GAYTAN S ARTILLERY OFFICER Ot 204.10 11/19/2015 MAHSA GAYTAN S ARTILLERY OFFICER Ot 280.9 11/19/2015 MAHSA GAYTAN S ARTILLERY OFFICER Ot 414.00 11/19/2015 MAHSA GAYTAN S ARTILLERY OFFICER Ot 425.4 11/19/2015 MAHSA GAYTAN S ARTILLERY OFFICER Ot 530.81 11/19/2015 MAHSA GAYTAN S ARTILLERY OFFICER Ot V10.46 11/19/2015 MAHSA GAYTAN S ARTILLERY OFFICER Ot V45.02 11/19/2015 GAYTANMAHSA Sadler S ARTILLERY OFFICER Ot V58.69 11/19/2015 ANNABEL LINTON, ABBY S Ot 574.20 11/19/2015 GAYTANMAHSA Sadler S ARTILLERY OFFICER Ot 185 11/19/2015 GAYTANMAHSA Sadler S ARTILLERY OFFICER Ot 793.99 11/19/2015 ANNABEL LINTON, ABBY Sadler Ot 492.8 11/19/2015 ANNABEL LINTON, ABBY S Ot 530.81 11/19/2015 ANNABEL LINTON, ABBY S Ot 574.20 11/19/2015 ANNABEL LINTON, ABBY S Ot V72.83 11/19/2015 ANNABEL LINTON, ABBY Sadler Ot V74.8 11/19/2015 ANNABEL LINTONABBY S Ot V72.84 11/19/2015 DAVID FLORES ARTILLERY OFFICER Ot 272.0 11/19/2015 MAHSA GAYTAN S ARTILLERY OFFICER Ot 185 11/19/2015 MAHSA GAYTAN S ARTILLERY OFFICER Ot 204.10 11/19/2015 MAHSA GAYTAN S ARTILLERY OFFICER Ot 280.9 11/19/2015 MAHSA GAYTAN S ARTILLERY OFFICER Ot 425.4 11/19/2015 MAHSA GAYTAN S ARTILLERY OFFICER Ot 530.81 11/19/2015 MAHSA GAYTAN S ARTILLERY OFFICER Ot 530.85 11/19/2015 MAHSA GAYTAN S ARTILLERY OFFICER Ot V45.01 11/19/2015 MAHSA GAYTAN S ARTILLERY OFFICER Ot V58.69 11/19/2015 Ot 786.07 11/19/2015 JULIA LINTON, POPEYE Maier Ot 721.3 11/19/2015 POPEYE DUMONT MD Ot 722.52 11/19/2015 POPEYE DUMONT MD Ot V58.69 11/19/2015 MAHSA GAYTAN S ARTILLERY OFFICER Ot 185 11/19/2015 MAHSA GAYTAN S ARTILLERY OFFICER Ot 204.10 11/19/2015 MAHSA GAYTAN S ARTILLERY OFFICER Ot 280.9 11/19/2015 MAHSA GAYTAN S ARTILLERY OFFICER Ot 425.4 11/19/2015 MAHSA GAYTAN S ARTILLERY OFFICER Ot 530.81 11/19/2015 MAHSA GAYTAN S ARTILLERY OFFICER Ot 530.85 11/19/2015 MAHSA GAYTAN S ARTILLERY OFFICER Ot V45.01 11/19/2015 MAHSA GAYTAN S ARTILLERY OFFICER Ot V58.69 11/19/2015 MARY SAGASTUME MD Ot 443.9 11/19/2015 MARY SAGASTUME MD Ot 724.02 11/19/2015 MITESH LINTON, MARY Maier Ot 782.2 11/19/2015 MARY SAGASTUME MD Ot V72.63 11/19/2015 MARY SAGASTUME MD Ot V74.8 11/19/2015 DAVID FLORES ARTILLERY OFFICER Ot I10 11/19/2015 DAVID FLORES ARTILLERY OFFICER Ot I42.9 11/19/2015 DAVID FLORES ARTILLERY OFFICER Ot I77.9 11/19/2015 DAVID FLORES ARTILLERY OFFICER Ot J44.9 11/19/2015 DAVID FLORES ARTILLERY OFFICER Ot Z95.810 11/19/2015 GREGGCHRISTOPHER BABCOCK N Ot C91.10 11/19/2015 GREGG, CHRISTOPHER N Ot D50.9 11/19/2015 GREGG, BOBDOMINIC N Ot I42.9 11/19/2015 GREGG, CHRISTOPHER N Ot K21.9 11/19/2015 GREGG, CHRISTOPHER N Ot R97.2 11/19/2015 GREGG, CHRISTOPHER N Ot Z79.899 11/19/2015 GREGG, BOBDOMINIC N Ot Z85.46 11/19/2015 GREGG, CHRISTOPHER N Ot Z95.810 12/11/2015 MITESH LINTON, MARY Maier Ot M48.06 12/11/2015 MITESH LINTON, MARY Maier Ot Z01.812 12/11/2015 MITESH LINTON, MARY Maier Ot Z11.2 12/19/2015 GREGGCHRISTOPHER BABCOCK N Ot 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 12/19/2015 GREGGCHRISTOPHER BABCOCK N Ot D50.9 IRON DEFICIENCY ANEMIA, UNSPECIFIED 12/19/2015 GREGGCHRISTOPHER N Ot I42.9 CARDIOMYOPATHY, UNSPECIFIED 12/19/2015 GREGGCHRISTOPHER N Ot K21.9 GASTRO-ESOPHAGEAL REFLUX DISEASE WITHOUT 12/19/2015 GREGGCHRISTOPHER N Ot R97.2 ELEVATED PROSTATE SPECIFIC ANTIGEN [PSA] 12/19/2015 GREGGCHRISTOPHER N Ot Z79.899 OTHER UNDERWEAR CUTTER (CURRENT) DRUG THERAPY 12/19/2015 GREGGCHRISTOPHER N Ot Z85.46 PERSONAL HISTORY OF MALIGNANT NEOPLASM O 12/19/2015 GREGGPOLOAN N Ot Z95.810 PRESENCE OF AUTOMATIC (IMPLANTABLE) CARD 01/22/2016 GREGG BOBAN N Ot C91.10 01/22/2016 GREGG BOBAN N Ot D50.9 01/22/2016 GREGG BOBDOMINIC N Ot I42.9 01/22/2016 GREGG BOBAN N Ot K21.9 01/22/2016 GREGG BOBAN N Ot R97.2 01/22/2016 GREGGCHRISTOPHER N Ot Z79.899 01/22/2016 GREGG BOBAN N Ot Z85.46 01/22/2016 CHRISTOPHER ESCOBEDO Ot Z95.810 02/05/2016 Ot 396.3 02/05/2016 Ot 397.0 02/05/2016 Ot 427.2 02/05/2016 Ot 272.4 02/05/2016 Ot V58.69 02/05/2016 Ot 204.10 02/05/2016 Ot 305.1 02/05/2016 Ot V10.46 02/05/2016 Ot V58.66 02/05/2016 Ot V58.69 02/05/2016 Ot 433.30 02/05/2016 Ot 204.10 02/05/2016 Ot 788.30 02/05/2016 Ot V10.46 02/05/2016 Ot V58.66 02/05/2016 Ot V58.69 02/05/2016 Ot 204.10 02/05/2016 Ot 585.3 02/05/2016 Ot V10.46 02/05/2016 Ot V58.66 02/05/2016 Ot V58.69 02/05/2016 Ot 272.4 02/05/2016 Ot 401.9 02/05/2016 Ot 414.01 02/05/2016 Ot V58.69 02/05/2016 Ot 204.10 02/05/2016 Ot 585.3 02/05/2016 Ot V10.46 02/05/2016 Ot V58.66 02/05/2016 Ot V58.69 02/05/2016 Ot 272.4 02/05/2016 Ot V58.69 02/05/2016 Ot 401.9 02/05/2016 Ot 414.00 02/05/2016 Ot 425.4 02/05/2016 Ot 780.79 02/05/2016 Ot 785.0 02/05/2016 Ot V58.66 02/05/2016 Ot V58.69 02/05/2016 Ot V72.63 02/05/2016 Ot V72.81 02/05/2016 Ot 250.00 02/05/2016 Ot 305.1 02/05/2016 Ot 401.9 02/05/2016 Ot 414.01 02/05/2016 Ot 425.4 02/05/2016 Ot V58.66 02/05/2016 Ot V58.69 02/05/2016 Ot V72.63 02/05/2016 Ot V72.81 02/05/2016 Ot 204.10 02/05/2016 Ot 425.4 02/05/2016 Ot 585.3 02/05/2016 Ot V10.46 02/05/2016 Ot V58.66 02/05/2016 Ot V58.69 02/05/2016 Ot 272.4 02/05/2016 Ot 401.9 02/05/2016 Ot V58.69 02/05/2016 Ot 272.4 02/05/2016 Ot 401.9 02/05/2016 Ot V58.69 02/05/2016 Ot 204.10 02/05/2016 Ot 425.4 02/05/2016 Ot 585.3 02/05/2016 Ot V10.46 02/05/2016 Ot V45.02 02/05/2016 Ot V58.66 02/05/2016 Ot V58.69 02/05/2016 Ot 272.4 02/05/2016 Ot 401.9 02/05/2016 Ot V58.69 02/05/2016 Ot 272.4 02/05/2016 Ot 401.9 02/05/2016 Ot V58.69 02/05/2016 Ot 272.4 02/05/2016 Ot 401.9 02/05/2016 Ot V58.69 02/05/2016 Ot 250.00 02/05/2016 ELIESER GAYTANIVAN Viktoriya ARTILLERY OFFICER Ot 204.10 02/05/2016 ELIESER GAYTANIVAN Viktoriya ARTILLERY OFFICER Ot 280.9 02/05/2016 GAYTAN, MAHSA Sadler ARTILLERY OFFICER Ot 425.4 02/05/2016 LUCILA MAHSA S ARTILLERY OFFICER Ot 585.3 02/05/2016 LUCILA MAHSA S ARTILLERY OFFICER Ot 786.07 02/05/2016 LUCILA MAHSA Sadler ARTILLERY OFFICER Ot V10.46 02/05/2016 LUCILA MAHSA Sadler ARTILLERY OFFICER Ot V45.01 02/05/2016 LUCILA MAHSA S ARTILLERY OFFICER Ot V58.66 02/05/2016 LUCILA MAHSA S ARTILLERY OFFICER Ot V58.69 02/05/2016 DAVID FLORES ARTILLERY OFFICER Ot 272.4 02/05/2016 DAVID FLORES ARTILLERY OFFICER Ot V58.69 02/05/2016 MAHSA GAYTAN ARTILLERY OFFICER Ot 786.07 02/05/2016 ANNABEL LINTON, ABBY Sadler Ot V72.84 02/05/2016 TOREY LINTON, J SANDRA Ot 185 02/05/2016 GAYTANMAHSA Sadler S ARTILLERY OFFICER Ot 204.10 02/05/2016 GAYTANMAHSA Sadler S ARTILLERY OFFICER Ot 425.4 02/05/2016 GAYTANMAHSA Sadler S ARTILLERY OFFICER Ot V10.46 02/05/2016 GAYTANMAHSA S ARTILLERY OFFICER Ot V45.01 02/05/2016 GAYTANMAHSA S ARTILLERY OFFICER Ot V58.66 02/05/2016 GAYTANMAHSA S ARTILLERY OFFICER Ot V58.69 02/05/2016 ANNABEL LINTON, ABBY S Ot 530.85 02/05/2016 ANNABEL LINTON, ABBY S Ot V72.63 02/05/2016 ANNABEL LINTON, ABBY S Ot V72.81 02/05/2016 ANNABEL LINTON, ABBY S Ot V74.8 02/05/2016 CHRISTOPHER ESCOBEDO Ot 185 02/05/2016 GREGGCHRISTOPHER BABCOCK N Ot 790.93 02/05/2016 TRAV LINTON [facility] CCDS Ot 425.4 02/05/2016 ANNABEL LINTON, ABBY S Ot V72.84 02/05/2016 DAVID FLORES L ARTILLERY OFFICER Ot 272.4 02/05/2016 DAVID FLORES L ARTILLERY OFFICER Ot 401.9 02/05/2016 BAIMADAVID L ARTILLERY OFFICER Ot 414.00 02/05/2016 BAIMADAVID L ARTILLERY OFFICER Ot V58.69 02/05/2016 GAYTANMAHSA Sadler S ARTILLERY OFFICER Ot 204.10 02/05/2016 GAYTAN MAHSA S ARTILLERY OFFICER Ot 280.9 02/05/2016 GAYTAN MAHSA S ARTILLERY OFFICER Ot 414.00 02/05/2016 GAYTANMAHSA S ARTILLERY OFFICER Ot 425.4 02/05/2016 GAYTANELIESERAH S ARTILLERY OFFICER Ot 530.81 02/05/2016 GAYTAN MAHSA S ARTILLERY OFFICER Ot V10.46 02/05/2016 GAYTAN MAHSA S ARTILLERY OFFICER Ot V45.02 02/05/2016 GAYTAN ELIESERAH S ARTILLERY OFFICER Ot V58.69 02/05/2016 BAIMA DAVID L ARTILLERY OFFICER Ot 272.4 02/05/2016 BAIMA DAVID L ARTILLERY OFFICER Ot 401.9 02/05/2016 MAHSA GAYTAN ARTILLERY OFFICER Ot 204.10 02/05/2016 MAHSA GAYTAN ARTILLERY OFFICER Ot 280.9 02/05/2016 MAHSA GAYTAN ARTILLERY OFFICER Ot 414.00 02/05/2016 MAHSA GAYTAN S ARTILLERY OFFICER Ot 425.4 02/05/2016 MAHSA GAYTAN S ARTILLERY OFFICER Ot 530.81 02/05/2016 MAHSA GAYTAN S ARTILLERY OFFICER Ot V10.46 02/05/2016 MAHSA GAYTAN S ARTILLERY OFFICER Ot V45.02 02/05/2016 MAHSA GAYTAN S ARTILLERY OFFICER Ot V58.69 02/05/2016 ANNABEL LINTON, ABBY S Ot 574.20 02/05/2016 MAHSA GAYTAN S ARTILLERY OFFICER Ot 185 02/05/2016 MAHSA GAYTAN S ARTILLERY OFFICER Ot 793.99 02/05/2016 ANNABEL LINTON, ABBY S Ot 492.8 02/05/2016 ANNABEL LINTON, ABBY S Ot 530.81 02/05/2016 ANNABEL LINTON, ABBY S Ot 574.20 02/05/2016 ANNABEL LINTON, ABBY S Ot V72.83 02/05/2016 ANNABEL LINTON, ABBY S Ot V74.8 02/05/2016 ANNABEL LINTON, ABBY S Ot V72.84 02/05/2016 DAVID FLORES ARTILLERY OFFICER Ot 272.0 02/05/2016 MAHSA GAYTAN ARTILLERY OFFICER Ot 185 02/05/2016 MAHSA GAYTAN ARTILLERY OFFICER Ot 204.10 02/05/2016 MAHSA GAYTAN ARTILLERY OFFICER Ot 280.9 02/05/2016 MAHSA GAYTAN S ARTILLERY OFFICER Ot 425.4 02/05/2016 MAHSA GAYTAN S ARTILLERY OFFICER Ot 530.81 02/05/2016 MAHSA GAYTAN S ARTILLERY OFFICER Ot 530.85 02/05/2016 MAHSA GAYTAN S ARTILLERY OFFICER Ot V45.01 02/05/2016 MAHSA GAYTAN S ARTILLERY OFFICER Ot V58.69 02/05/2016 Ot 786.07 02/05/2016 POPEYE DUMONT MD Ot 721.3 02/05/2016 JULIA LINTON, POPEYE Maier Ot 722.52 02/05/2016 POPEYE DUMONT MD Ot V58.69 02/05/2016 GAYTAN, HILAH S ARTILLERY OFFICER Ot 185 02/05/2016 MAHSA GAYTAN ARTILLERY OFFICER Ot 204.10 02/05/2016 MAHSA GAYTAN ARTILLERY OFFICER Ot 280.9 02/05/2016 MAHSA GAYTAN ARTILLERY OFFICER Ot 425.4 02/05/2016 MAHSA GAYTAN ARTILLERY OFFICER Ot 530.81 02/05/2016 MAHSA GAYTAN ARTILLERY OFFICER Ot 530.85 02/05/2016 MAHSA GAYTAN ARTILLERY OFFICER Ot V45.01 02/05/2016 MAHSA GAYTAN ARTILLERY OFFICER Ot V58.69 02/05/2016 MITESH LINTON, MARY Maier Ot 443.9 02/05/2016 MITESH LINTON, MARY Maier Ot 724.02 02/05/2016 MITESH LINTON, MARY Maier Ot 782.2 02/05/2016 MITESH LINTON, MARY Maier Ot V72.63 02/05/2016 MITESH LINTON, MARY Maier Ot V74.8 02/05/2016 MARK DAVID L ARTILLERY OFFICER Ot I10 02/05/2016 MARK DAVID L ARTILLERY OFFICER Ot I42.9 02/05/2016 BAIMA DAVID L ARTILLERY OFFICER Ot I77.9 02/05/2016 BAIMA DAVID L ARTILLERY OFFICER Ot J44.9 02/05/2016 MARK DAVID L ARTILLERY OFFICER Ot Z95.810 02/05/2016 MITESH LINTON, MARY Maier Ot M48.06 02/05/2016 MITESH LINTON, MARY Maier Ot Z01.812 02/05/2016 MITESH LINTON, MARY Maier Ot Z11.2 02/05/2016 CHRISTOPHER ESCOBEDO N Ot C91.10 02/05/2016 GREGGCHRISTOPHER N Ot D50.9 02/05/2016 GREGG BOBAN N Ot I42.9 02/05/2016 GREGGCHRISTOPHER [place]ABCOCK N Ot K21.9 02/05/2016 GREGGCHRISTOPHER [place] N Ot R97.2 02/05/2016 GREGG, BOBAN N Ot Z79.899 02/05/2016 GREGG, BOBAN N Ot Z85.46 02/05/2016 GREGGPOLO BABCOCKAN N Ot Z95.810 02/19/2016 GREGGCHRISTOPHER [place] N Ot C91.10 02/19/2016 CHRISTOPHER ESCOBEDO N Ot D50.9 02/19/2016 GREGGCHRISTOPHER [place] N Ot I42.9 02/19/2016 CHRISTOPHER ESCOBEDO N Ot K21.9 02/19/2016 CHRISTOPHER ESCOBEDO N Ot R97.2 02/19/2016 CHRISTOPHER ESCOBEDO N Ot Z79.899 02/19/2016 CHRISTOPHER ESCOBEDO N Ot Z85.46 02/19/2016 CHRISTOPHER ESCOBEDO N Ot Z95.810 03/27/2016 CHRISTOPHER ESCOBEDO Ot 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 03/27/2016 CHRISTOPHER ESCOBEDO N Ot D50.9 IRON DEFICIENCY ANEMIA, UNSPECIFIED 03/27/2016 CHRISTOPHER ESCOBEDO N Ot I42.9 CARDIOMYOPATHY, UNSPECIFIED 03/27/2016 CHRISTOPHER ESCOBEDO N Ot K21.9 GASTRO-ESOPHAGEAL REFLUX DISEASE WITHOUT 03/27/2016 CHRISTOPHER ESCOBEDO N Ot R97.2 ELEVATED PROSTATE SPECIFIC ANTIGEN [PSA] 03/27/2016 CHRISTOPHER ESCOBEDO N Ot Z79.899 OTHER JAIL (CURRENT) DRUG THERAPY 03/27/2016 CHRISTOPHER ESCOBEDO N Ot Z85.46 PERSONAL HISTORY OF MALIGNANT NEOPLASM O 03/27/2016 CHRISTOPHER ESCOBEDO N Ot Z95.810 PRESENCE OF AUTOMATIC (IMPLANTABLE) CARD 04/20/2016 CHRISTOPHER ESCOBEDO Ot 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 04/20/2016 CHRISTOPHER ESCOBEDO N Ot D50.9 IRON DEFICIENCY ANEMIA, UNSPECIFIED 04/20/2016 CHRISTOPHER ESCOBEDO N Ot I42.9 CARDIOMYOPATHY, UNSPECIFIED 04/20/2016 CHRISTOPHER ESCOBEDO N Ot K21.9 GASTRO-ESOPHAGEAL REFLUX DISEASE WITHOUT 04/20/2016 CHRISTOPHER ESCOBEDO N Ot R97.2 ELEVATED PROSTATE SPECIFIC ANTIGEN [PSA] 04/20/2016 CHRISTOPHER ESCOBEDO N Ot Z79.899 OTHER JAIL (CURRENT) DRUG THERAPY 04/20/2016 CHRISTOPHER ESCOBEDO N Ot Z85.46 PERSONAL HISTORY OF MALIGNANT NEOPLASM O 04/20/2016 GREGGCHRISTOPHER BABCOCK N Ot Z95.810 PRESENCE OF AUTOMATIC (IMPLANTABLE) CARD 04/30/2016 DAVID FLORES Ot I10 ESSENTIAL (PRIMARY) HYPERTENSION 04/30/2016 ZAK FLORESHER L ARTILLERY OFFICER Ot I42.9 CARDIOMYOPATHY, UNSPECIFIED 04/30/2016 BAIMA, DAVID L ARTILLERY OFFICER Ot I49.5 SICK SINUS SYNDROME 04/30/2016 BAIDAVID LYONS ARTILLERY OFFICER Ot Z45.02 ENCNTR FOR ADJUST AND MGMT OF AUTOMATIC 04/30/2016 DAVID FLORES ARTILLERY OFFICER Ot Z95.810 PRESENCE OF AUTOMATIC (IMPLANTABLE) CARD 05/15/2016 BAIMADAVID ARTILLERY OFFICER Ot I10 ESSENTIAL (PRIMARY) HYPERTENSION 05/15/2016 BAIMADAVID L ARTILLERY OFFICER Ot I42.9 CARDIOMYOPATHY, UNSPECIFIED 05/15/2016 BAIMA, DAVID L ARTILLERY OFFICER Ot I49.5 SICK SINUS SYNDROME 05/15/2016 BAIDAVID LYONS ARTILLERY OFFICER Ot Z45.02 ENCNTR FOR ADJUST AND MGMT OF AUTOMATIC 05/15/2016 BAIMADAVID ARTILLERY OFFICER Ot Z95.810 PRESENCE OF AUTOMATIC (IMPLANTABLE) CARD 05/23/2016 THOMASMADAVID ARTILLERY OFFICER Ot I10 ESSENTIAL (PRIMARY) HYPERTENSION 05/23/2016 BAIMADAVID ARTILLERY OFFICER Ot I42.9 CARDIOMYOPATHY, UNSPECIFIED 05/23/2016 BAIMA, DAVID L ARTILLERY OFFICER Ot I49.5 SICK SINUS SYNDROME 05/23/2016 BAIDAVID LYONS ARTILLERY OFFICER Ot Z45.02 ENCNTR FOR ADJUST AND MGMT OF AUTOMATIC 05/23/2016 DAVID FLORES ARTILLERY OFFICER Ot Z95.810 PRESENCE OF AUTOMATIC (IMPLANTABLE) CARD 06/05/2016 DAVID FLORES ARTILLERY OFFICER Ot I10 ESSENTIAL (PRIMARY) HYPERTENSION 06/05/2016 BAIMADAVID L ARTILLERY OFFICER Ot I42.9 CARDIOMYOPATHY, UNSPECIFIED 06/05/2016 BAIMADAVID L ARTILLERY OFFICER Ot I49.5 SICK SINUS SYNDROME 06/05/2016 BAIMADAVID L ARTILLERY OFFICER Ot Z45.02 ENCNTR FOR ADJUST AND MGMT OF AUTOMATIC 06/05/2016 BAIMADAVID L ARTILLERY OFFICER Ot Z95.810 PRESENCE OF AUTOMATIC (IMPLANTABLE) CARD 07/02/2016 MAHSA GAYTAN ARTILLERY OFFICER Ot 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 07/02/2016 MAHSA GAYTANP Ot D50.9 IRON DEFICIENCY ANEMIA, UNSPECIFIED 07/02/2016 GAYTAN, HILAH S ARTILLERY OFFICER Ot I42.9 CARDIOMYOPATHY, UNSPECIFIED 07/02/2016 MAHSA GAYTAN ARTILLERY OFFICER Ot K21.9 GASTRO-ESOPHAGEAL REFLUX DISEASE WITHOUT 07/02/2016 MAHSA GAYTAN ARTILLERY OFFICER Ot R97.2 ELEVATED PROSTATE SPECIFIC ANTIGEN [PSA ] 07/02/2016 MAHSA GAYTAN ARTILLERY OFFICER Ot Z79.899 OTHER UNDERWEAR CUTTER (CURRENT) DRUG THERAPY 07/02/2016 MAHSA GAYTAN ARTILLERY OFFICER Ot Z85.46 PERSONAL HISTORY OF MALIGNANT NEOPLASM O 07/02/2016 MAHSA GAYTAN ARTILLERY OFFICER Ot Z95.810 PRESENCE OF AUTOMATIC (IMPLANTABLE) CARD 07/08/2016 MAHSA GAYTAN ARTILLERY OFFICER Ot 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 07/08/2016 MAHSA GAYTAN ARTILLERY OFFICER Ot D50.9 IRON DEFICIENCY ANEMIA, UNSPECIFIED 07/08/2016 MAHSA GAYTAN ARTILLERY OFFICER Ot I42.9 CARDIOMYOPATHY, UNSPECIFIED 07/08/2016 MAHSA GAYTAN ARTILLERY OFFICER Ot K21.9 GASTRO-ESOPHAGEAL REFLUX DISEASE WITHOUT 07/08/2016 MAHSA GAYTAN ARTILLERY OFFICER Ot R97.2 ELEVATED PROSTATE SPECIFIC ANTIGEN [PSA ] 07/08/2016 MAHSA GAYTAN ARTILLERY OFFICER Ot Z79.899 OTHER UNDERWEAR CUTTER (CURRENT) DRUG THERAPY 07/08/2016 MAHSA GAYTAN ARTILLERY OFFICER Ot Z85.46 PERSONAL HISTORY OF MALIGNANT NEOPLASM O 07/08/2016 MAHSA GAYTAN ARTILLERY OFFICER Ot Z95.810 PRESENCE OF AUTOMATIC (IMPLANTABLE) CARD 07/09/2016 GREGG CHRISTOPHER N Ot 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 07/09/2016 GREGGCHRISTOPHER N Ot D50.9 IRON DEFICIENCY ANEMIA, UNSPECIFIED 07/09/2016 GREGG CHRISTOPHER N Ot I42.9 CARDIOMYOPATHY, UNSPECIFIED 07/09/2016 GREGGCHRISTOPHER N Ot K21.9 GASTRO-ESOPHAGEAL REFLUX DISEASE WITHOUT 07/09/2016 GREGG CHRISTOPHER N Ot R97.2 ELEVATED PROSTATE SPECIFIC ANTIGEN [PSA] 07/09/2016 GREGG POLODOMINIC N Ot Z79.899 OTHER UNDERWEAR CUTTER (CURRENT) DRUG THERAPY 07/09/2016 GREGGCHRISTOPHER BABCOCK N Ot Z85.46 PERSONAL HISTORY OF MALIGNANT NEOPLASM O 07/09/2016 CHRISTOPHER ESCOBEDO Sebastián Ot Z95.810 PRESENCE OF AUTOMATIC (IMPLANTABLE) CARD 07/21/2016 MAHSA GAYTAN ARTILLERY OFFICER Ot 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 07/21/2016 MAHSA GAYTAN ARTILLERY OFFICER Ot D50.9 IRON DEFICIENCY ANEMIA, UNSPECIFIED 07/21/2016 MAHSA GAYTAN ARTILLERY OFFICER Ot I42.9 CARDIOMYOPATHY, UNSPECIFIED 07/21/2016 MAHSA GAYTAN ARTILLERY OFFICER Ot K21.9 GASTRO-ESOPHAGEAL REFLUX DISEASE WITHOUT 07/21/2016 MAHSA GAYTAN ARTILLERY OFFICER Ot R97.2 ELEVATED PROSTATE SPECIFIC ANTIGEN [PSA ] 07/21/2016 MAHSA GAYTAN ARTILLERY OFFICER Ot Z79.899 OTHER JAIL (CURRENT) DRUG THERAPY 07/21/2016 MAHSA GAYTAN ARTILLERY OFFICER Ot Z85.46 PERSONAL HISTORY OF MALIGNANT NEOPLASM O 07/21/2016 MAHSA GAYTAN ARTILLERY OFFICER Ot Z95.810 PRESENCE OF AUTOMATIC (IMPLANTABLE) CARD 07/25/2016 MAHSA GAYTAN ARTILLERY OFFICER Ot 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 07/25/2016 MAHSA GAYTAN ARTILLERY OFFICER Ot D50.9 IRON DEFICIENCY ANEMIA, UNSPECIFIED 07/25/2016 MAHSA GAYTANP Ot I42.9 CARDIOMYOPATHY, UNSPECIFIED 07/25/2016 MAHSA GAYTAN ARTILLERY OFFICER Ot K21.9 GASTRO-ESOPHAGEAL REFLUX DISEASE WITHOUT 07/25/2016 MAHSA GAYTAN ARTILLERY OFFICER Ot R97.2 ELEVATED PROSTATE SPECIFIC ANTIGEN [PSA ] 07/25/2016 MAHSA GAYTAN ARTILLERY OFFICER Ot Z79.899 OTHER JAIL (CURRENT) DRUG THERAPY 07/25/2016 MAHSA GAYTAN ARTILLERY OFFICER Ot Z85.46 PERSONAL HISTORY OF MALIGNANT NEOPLASM O 07/25/2016 MAHSA GAYTAN ARTILLERY OFFICER Ot Z95.810 PRESENCE OF AUTOMATIC (IMPLANTABLE) CARD 07/31/2016 MAHSA GAYTAN ARTILLERY OFFICER Ot 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 07/31/2016 MAHSA GAYTAN ARTILLERY OFFICER Ot D50.9 IRON DEFICIENCY ANEMIA, UNSPECIFIED 07/31/2016 MAHSA GAYTAN ARTILLERY OFFICER Ot I42.9 CARDIOMYOPATHY, UNSPECIFIED 07/31/2016 MAHSA GAYTAN ARTILLERY OFFICER Ot K21.9 GASTRO-ESOPHAGEAL REFLUX DISEASE WITHOUT 07/31/2016 MAHSA GAYTAN [facility] Ot R97.2 ELEVATED PROSTATE SPECIFIC ANTIGEN [PSA ] 07/31/2016 MAHSA GAYTAN ARTILLERY OFFICER Ot Z79.899 OTHER JAIL (CURRENT) DRUG THERAPY 07/31/2016 MAHSA GAYTANP Ot Z85.46 PERSONAL HISTORY OF MALIGNANT NEOPLASM O 07/31/2016 MAHSA GAYTAN [facility] Ot Z95.810 PRESENCE OF AUTOMATIC (IMPLANTABLE) CARD 08/14/2016 Ot 204.10 CHRONIC LYMPHOID LEUKEMIA, W/O MENTION A 08/14/2016 Ot 305.1 TOBACCO USE DISORDER 08/14/2016 Ot V10.46 HX-PROSTATIC MALIGNANCY 08/14/2016 Ot V58.66 LONG-TERM (CURRENT) USE OF ASPIRIN 08/14/2016 Ot V58.69 OTH MED,LT,CURRENT USE 08/14/2016 Ot 433.30 MULT BILTRAL ARTERY OCCLUSION WO CEREBRA 08/14/2016 Ot 204.10 CHRONIC LYMPHOID LEUKEMIA, W/O MENTION A 08/14/2016 Ot 788.30 UNSPECIFIED URINARY INCONTINENCE 08/14/2016 Ot V10.46 HX-PROSTATIC MALIGNANCY 08/14/2016 Ot V58.66 LONG-TERM (CURRENT) USE OF ASPIRIN 08/14/2016 Ot V58.69 OTH MED,LT,CURRENT USE 08/14/2016 Ot 204.10 CHRONIC LYMPHOID LEUKEMIA, W/O MENTION A 08/14/2016 Ot 585.3 CHRONIC KIDNEY DISEASE, STAGE III (MODER 08/14/2016 Ot V10.46 HX-PROSTATIC MALIGNANCY 08/14/2016 Ot V58.66 LONG-TERM (CURRENT) USE OF ASPIRIN 08/14/2016 Ot V58.69 OTH MED,LT,CURRENT USE 08/14/2016 Ot 272.4 HYPERLIPIDEMIA NEC/NOS 08/14/2016 Ot 401.9 HYPERTENSION NOS 08/14/2016 Ot 414.01 CORONARY ATHEROSCLEROSIS OF [place] CORON 08/14/2016 Ot V58.69 OTH MED,LT,CURRENT USE 08/14/2016 Ot 204.10 CHRONIC LYMPHOID LEUKEMIA, W/O MENTION A 08/14/2016 Ot 585.3 CHRONIC KIDNEY DISEASE, STAGE III (MODER 08/14/2016 Ot V10.46 HX-PROSTATIC MALIGNANCY 08/14/2016 Ot V58.66 LONG-TERM (CURRENT) USE OF ASPIRIN 08/14/2016 Ot V58.69 OTH MED,LT,CURRENT USE 08/14/2016 Ot 272.4 HYPERLIPIDEMIA NEC/NOS 08/14/2016 Ot V58.69 OTH MED,LT,CURRENT USE 08/14/2016 Ot 401.9 HYPERTENSION NOS 08/14/2016 Ot 414.00 CORON ATHEROSCLER NOS TYPE VESSEL, NATIV 08/14/2016 Ot 425.4 PRIM CARDIOMYOPATHY NEC 08/14/2016 Ot 780.79 OTH MALAISE FATIGUE 08/14/2016 Ot 785.0 TACHYCARDIA NOS 08/14/2016 Ot V58.66 LONG-TERM (CURRENT) USE OF ASPIRIN 08/14/2016 Ot V58.69 OTH MED,LT,CURRENT USE 08/14/2016 Ot V72.63 PRE-PROCEDURAL LABORATORY EXAMINATION 08/14/2016 Ot V72.81 [id number] CARDIOVASCULAR 08/14/2016 Ot 250.00 DIAB ORALIA WO COMPL, TYPE II OR UNSPEC TY 08/14/2016 Ot 305.1 TOBACCO USE DISORDER 08/14/2016 Ot 401.9 HYPERTENSION NOS 08/14/2016 Ot 414.01 CORONARY ATHEROSCLEROSIS OF [place] CORON 08/14/2016 Ot 425.4 PRIM CARDIOMYOPATHY NEC 08/14/2016 Ot V58.66 LONG-TERM (CURRENT) USE OF ASPIRIN 08/14/2016 Ot V58.69 OTH MED,LT,CURRENT USE 08/14/2016 Ot V72.63 PRE-PROCEDURAL LABORATORY EXAMINATION 08/14/2016 Ot V72.81 [id number] CARDIOVASCULAR 08/14/2016 Ot 204.10 CHRONIC LYMPHOID LEUKEMIA, W/O MENTION A 08/14/2016 Ot 425.4 PRIM CARDIOMYOPATHY NEC 08/14/2016 Ot 585.3 CHRONIC KIDNEY DISEASE, STAGE III (MODER 08/14/2016 Ot V10.46 HX-PROSTATIC MALIGNANCY 08/14/2016 Ot V58.66 LONG-TERM (CURRENT) USE OF ASPIRIN 08/14/2016 Ot V58.69 OTH MED,LT,CURRENT USE 08/14/2016 Ot 272.4 HYPERLIPIDEMIA NEC/NOS 08/14/2016 Ot 401.9 HYPERTENSION NOS 08/14/2016 Ot V58.69 OTH MED,LT,CURRENT USE 08/14/2016 Ot 272.4 HYPERLIPIDEMIA NEC/NOS 08/14/2016 Ot 401.9 HYPERTENSION NOS 08/14/2016 Ot V58.69 OTH MED,LT,CURRENT USE 08/14/2016 Ot 204.10 CHRONIC LYMPHOID LEUKEMIA, W/O MENTION A 08/14/2016 Ot 425.4 PRIM CARDIOMYOPATHY NEC 08/14/2016 Ot 585.3 CHRONIC KIDNEY DISEASE, STAGE III (MODER 08/14/2016 Ot V10.46 HX-PROSTATIC MALIGNANCY 08/14/2016 Ot V45.02 AUTO IMPLANTABLE CARDIAC DEFIBRILLATOR I 08/14/2016 Ot V58.66 LONG-TERM (CURRENT) USE OF ASPIRIN 08/14/2016 Ot V58.69 OTH MED,LT,CURRENT USE 08/14/2016 Ot 272.4 HYPERLIPIDEMIA NEC/NOS 08/14/2016 Ot 401.9 HYPERTENSION NOS 08/14/2016 Ot V58.69 OTH MED,LT,CURRENT USE 08/14/2016 Ot 272.4 HYPERLIPIDEMIA NEC/NOS 08/14/2016 Ot 401.9 HYPERTENSION NOS 08/14/2016 Ot V58.69 OTH MED,LT,CURRENT USE 08/14/2016 Ot 272.4 HYPERLIPIDEMIA NEC/NOS 08/14/2016 Ot 401.9 HYPERTENSION NOS 08/14/2016 Ot V58.69 OTH MED,LT,CURRENT USE 08/14/2016 Ot 250.00 DIAB ORALIA WO COMPL, TYPE II OR UNSPEC TY 08/14/2016 MAHSA GAYTAN ARTILLERY OFFICER Ot 204.10 CHRONIC LYMPHOID LEUKEMIA, W/O MENTION A 08/14/2016 MAHSA GAYTAN ARTILLERY OFFICER Ot 280.9 IRON DEFIC ANEMIA NOS 08/14/2016 MAHSA GAYTAN ARTILLERY OFFICER Ot 425.4 PRIM CARDIOMYOPATHY NEC 08/14/2016 MAHSA GAYTAN ARTILLERY OFFICER Ot 585.3 CHRONIC KIDNEY DISEASE, STAGE III ( MODER 08/14/2016 MAHSA GAYTAN ARTILLERY OFFICER Ot 786.07 WHEEZING 08/14/2016 MAHSA GAYTAN ARTILLERY OFFICER Ot V10.46 HX-PROSTATIC MALIGNANCY 08/14/2016 MAHSA GAYTAN ARTILLERY OFFICER Ot V45.01 CARDIAC PACEMAKER IN SITU 08/14/2016 MAHSA GAYTAN ARTILLERY OFFICER Ot V58.66 LONG-TERM (CURRENT) USE OF ASPIRIN 08/14/2016 MAHSA GAYTAN ARTILLERY OFFICER Ot V58.69 OTH MED,LT,CURRENT USE 08/14/2016 DAVID FLORES ARTILLERY OFFICER Ot 272.4 HYPERLIPIDEMIA NEC/NOS 08/14/2016 DAVID FLORES ARTILLERY OFFICER Ot V58.69 OTH MED,LT,CURRENT USE 08/14/2016 MAHSA GAYTAN ARTILLERY OFFICER Ot 786.07 WHEEZING 08/14/2016 ABBY JIN MD Ot V72.84 EXAM PRE-OPERATIVE NOS 08/14/2016 TOREY LINTON, Livier FLORES Ot 185 MALIGN NEOPL PROSTATE 08/14/2016 MAHSA GAYTAN ARTILLERY OFFICER Ot 204.10 CHRONIC LYMPHOID LEUKEMIA, W/O MENTION A 08/14/2016 MAHSA GAYTAN ARTILLERY OFFICER Ot 425.4 PRIM CARDIOMYOPATHY NEC 08/14/2016 MAHSA GAYTAN ARTILLERY OFFICER Ot V10.46 HX-PROSTATIC MALIGNANCY 08/14/2016 MAHSA GAYTANP Ot V45.01 CARDIAC PACEMAKER IN SITU 08/14/2016 MAHSA GAYTANP Ot V58.66 LONG-TERM (CURRENT) USE OF ASPIRIN 08/14/2016 MAHSA GAYTANP Ot V58.69 OTH MED,LT,CURRENT USE 08/14/2016 ANNABEL LINTON, ABBY S Ot 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 08/14/2016 ANNABEL LINTON, ABBY Sadler Ot V72.63 PRE-PROCEDURAL LABORATORY EXAMINATION 08/14/2016 ANNABEL LINTON, ABBY Sadler Ot V72.81 [id number] CARDIOVASCULAR 08/14/2016 ABBY JIN MD S Ot V74.8 SCREEN-BACTERIAL DIS NEC 08/14/2016 CHRISTOPHER ESCOBEDO Ot 185 MALIGN NEOPL PROSTATE 08/14/2016 CHRISTOPHER ESCOBEDO Ot 790.93 ELEVATED PROSTATE SPECIFIC ANTIGEN [PSA] 08/14/2016 TRAV LINTON FACC, ALI FACP CCDS Ot 425.4 PRIM CARDIOMYOPATHY NEC 08/14/2016 ABBY JIN MD S Ot V72.84 EXAM PRE-OPERATIVE NOS 08/14/2016 DAVID FLORES ARTILLERY OFFICER Ot 272.4 HYPERLIPIDEMIA NEC/NOS 08/14/2016 DAVID FLORES ARTILLERY OFFICER Ot 401.9 HYPERTENSION NOS 08/14/2016 DAVID FLORES ARTILLERY OFFICER Ot 414.00 CORON ATHEROSCLER NOS TYPE VESSEL, NATIV 08/14/2016 DAVID FLORES ARTILLERY OFFICER Ot V58.69 OTH MED,LT,CURRENT USE 08/14/2016 GAYTAN, HILAH S ARTILLERY OFFICER Ot 204.10 CHRONIC LYMPHOID LEUKEMIA, W/O MENTION A 08/14/2016 MAHSA GAYTAN S ARTILLERY OFFICER Ot 280.9 IRON DEFIC ANEMIA NOS 08/14/2016 MAHSA GAYTAN S ARTILLERY OFFICER Ot 414.00 CORON ATHEROSCLER NOS TYPE VESSEL, NATIV 08/14/2016 MAHSA GAYTAN S ARTILLERY OFFICER Ot 425.4 PRIM CARDIOMYOPATHY NEC 08/14/2016 MAHSA GAYTAN S ARTILLERY OFFICER Ot 530.81 ESOPHAGEAL REFLUX 08/14/2016 MAHSA GAYTAN ARTILLERY OFFICER Ot V10.46 HX-PROSTATIC MALIGNANCY 08/14/2016 MAHSA GAYTAN S ARTILLERY OFFICER Ot V45.02 AUTO IMPLANTABLE CARDIAC DEFIBRILLATOR I 08/14/2016 MAHSA GAYTAN ARTILLERY OFFICER Ot V58.69 OTH MED,LT,CURRENT USE 08/14/2016 BAIDAVID LYONS ARTILLERY OFFICER Ot 272.4 HYPERLIPIDEMIA NEC/NOS 08/14/2016 BAIMA DAVID L ARTILLERY OFFICER Ot 401.9 HYPERTENSION NOS 08/14/2016 MAHSA GAYTAN S ARTILLERY OFFICER Ot 204.10 CHRONIC LYMPHOID LEUKEMIA, W/O MENTION A 08/14/2016 MAHSA GAYTAN S ARTILLERY OFFICER Ot 280.9 IRON DEFIC ANEMIA NOS 08/14/2016 MAHSA GAYTAN S ARTILLERY OFFICER Ot 414.00 CORON ATHEROSCLER NOS TYPE VESSEL, NATIV 08/14/2016 MAHSA GAYTAN ARTILLERY OFFICER Ot 425.4 PRIM CARDIOMYOPATHY NEC 08/14/2016 MAHSA GAYTAN S ARTILLERY OFFICER Ot 530.81 ESOPHAGEAL REFLUX 08/14/2016 MAHSA GAYTAN S ARTILLERY OFFICER Ot V10.46 HX-PROSTATIC MALIGNANCY 08/14/2016 MAHSA GAYTAN ARTILLERY OFFICER Ot V45.02 AUTO IMPLANTABLE CARDIAC DEFIBRILLATOR I 08/14/2016 MAHSA GAYTAN ARTILLERY OFFICER Ot V58.69 OTH MED,LT,CURRENT USE 08/14/2016 ANNABEL LINTON, ABBY Sadler Ot 574.20 CHOLELITHIASIS NOS 08/14/2016 MAHSA GAYTAN ARTILLERY OFFICER Ot 185 MALIGN NEOPL PROSTATE 08/14/2016 MAHSA GAYTAN ARTILLERY OFFICER Ot 793.99 OTH NOSP (ABN) FINDINGS RADIOLOGICAL O 08/14/2016 ABYB JIN MD Ot 492.8 EMPHYSEMA NEC 08/14/2016 ABBY JIN MD Ot 530.81 ESOPHAGEAL REFLUX 08/14/2016 ANNABEL LINTON, ABBY Sadler Ot 574.20 CHOLELITHIASIS NOS 08/14/2016 ANNABEL LINTON, ABBY Sadler Ot V72.83 EXAM PRE-OPERATIVE NEC 08/14/2016 ANNABEL LINTON, ABBY Sadler Ot V74.8 SCREEN-BACTERIAL DIS NEC 08/14/2016 ANNABEL LINTON, ABBY Sadler Ot V72.84 EXAM PRE-OPERATIVE NOS 08/14/2016 DAVID FLORES ARTILLERY OFFICER Ot 272.0 PURE HYPERCHOLESTEROLEM 08/14/2016 MAHSA GAYTAN S ARTILLERY OFFICER Ot 185 MALIGN NEOPL PROSTATE 08/14/2016 MAHSA GAYTAN S ARTILLERY OFFICER Ot 204.10 CHRONIC LYMPHOID LEUKEMIA, W/O MENTION A 08/14/2016 MAHSA GAYTAN S ARTILLERY OFFICER Ot 280.9 IRON DEFIC ANEMIA NOS 08/14/2016 GAYTAN, HILAH S ARTILLERY OFFICER Ot 425.4 PRIM CARDIOMYOPATHY NEC 08/14/2016 MAHSA GAYTAN S ARTILLERY OFFICER Ot 530.81 ESOPHAGEAL REFLUX 08/14/2016 MAHSA GAYTAN S ARTILLERY OFFICER Ot 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 08/14/2016 MAHSA GAYTAN S ARTILLERY OFFICER Ot V45.01 CARDIAC PACEMAKER IN SITU 08/14/2016 MAHSA GAYTAN S ARTILLERY OFFICER Ot V58.69 OTH MED,LT,CURRENT USE 08/14/2016 Ot 786.07 WHEEZING 08/14/2016 JULIA LINTON, POPEYE Maier Ot 721.3 LUMBOSACRAL SPONDYLOSIS 08/14/2016 JULIA LINTON, POPEYE Maier Ot 722.52 LUMB/LUMBOSAC DISC DEGEN 08/14/2016 POPEYE DUMONT MD Ot V58.69 OTH MED,LT,CURRENT USE 08/14/2016 MAHSA GAYTAN S ARTILLERY OFFICER Ot 185 MALIGN NEOPL PROSTATE 08/14/2016 MAHSA GAYTAN S ARTILLERY OFFICER Ot 204.10 CHRONIC LYMPHOID LEUKEMIA, W/O MENTION A 08/14/2016 MAHSA GAYTAN S ARTILLERY OFFICER Ot 280.9 IRON DEFIC ANEMIA NOS 08/14/2016 MAHSA GAYTAN S ARTILLERY OFFICER Ot 425.4 PRIM CARDIOMYOPATHY NEC 08/14/2016 MAHSA GAYTAN S ARTILLERY OFFICER Ot 530.81 ESOPHAGEAL REFLUX 08/14/2016 GAYTANMAHSA Sadler S ARTILLERY OFFICER Ot 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 08/14/2016 GAYTAN, HILAH S ARTILLERY OFFICER Ot V45.01 CARDIAC PACEMAKER IN SITU 08/14/2016 MAHSA GAYTAN ARTILLERY OFFICER Ot V58.69 OTH MED,LT,CURRENT USE 08/14/2016 MARY SAGASTUME MD Ot 443.9 PERIPH VASCULAR DIS NOS 08/14/2016 MARY SAGASTUME MD Ot 724.02 SPINAL STENOSIS, LUMBAR REG, W/OUT NEURO 08/14/2016 MARY SAGASTUME MD Ot 782.2 LOCAL SUPRFICIAL SWELLNG 08/14/2016 MARY SAGASTUME MD Ot V72.63 PRE-PROCEDURAL LABORATORY EXAMINATION 08/14/2016 MARY SAGASTUME MD, Ot V74.8 SCREEN-BACTERIAL DIS NEC 08/14/2016 DAVID FLORES ARTILLERY OFFICER Ot I10 ESSENTIAL (PRIMARY) HYPERTENSION 08/14/2016 DAVID FLORES ARTILLERY OFFICER Ot I42.9 CARDIOMYOPATHY, UNSPECIFIED 08/14/2016 DAVID FLORES ARTILLERY OFFICER Ot I77.9 DISORDER OF ARTERIES AND ARTERIOLES, UNS 08/14/2016 DAVID FLORESP Ot J44.9 CHRONIC OBSTRUCTIVE PULMONARY DISEASE, U 08/14/2016 DAVID FLORES ARTILLERY OFFICER Ot Z95.810 PRESENCE OF AUTOMATIC (IMPLANTABLE) CARD 08/14/2016 MARY SAGASTUME MD, Ot M48.06 SPINAL STENOSIS, LUMBAR REGION 08/14/2016 MARY SAGASTUME MD Ot Z01.812 ENCOUNTER FOR PREPROCEDURAL LABORATORY E 08/14/2016 MARY SAGASTUME MD, Ot Z11.2 ENCOUNTER FOR SCREENING FOR OTHER BACTER 08/14/2016 CHRISTOPHER ESCOBEDO Ot 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 08/14/2016 CHRISTOPHER ESCOBEDO Ot D50.9 IRON DEFICIENCY ANEMIA, UNSPECIFIED 08/14/2016 CHRISTOPHER ESCOBEDO Ot I42.9 CARDIOMYOPATHY, UNSPECIFIED 08/14/2016 CHRISTOPHER ESCOBEDO Ot K21.9 GASTRO-ESOPHAGEAL REFLUX DISEASE WITHOUT 08/14/2016 CHRISTOPHER ESCOBEDO Ot R97.2 ELEVATED PROSTATE SPECIFIC ANTIGEN [PSA] 08/14/2016 CHRISTOPHER ESCOBEDO Ot Z79.899 OTHER JAIL (CURRENT) DRUG THERAPY 08/14/2016 CHRISTOPHER ESCOBEDO Ot Z85.46 PERSONAL HISTORY OF MALIGNANT NEOPLASM O 08/14/2016 CHRISTOPHER ESCOBEDO Ot Z95.810 PRESENCE OF AUTOMATIC (IMPLANTABLE) CARD 08/14/2016 DAVID FLORES ARTILLERY OFFICER Ot I10 ESSENTIAL (PRIMARY) HYPERTENSION 08/14/2016 DAVID FLORES ARTILLERY OFFICER Ot I42.9 CARDIOMYOPATHY, UNSPECIFIED 08/14/2016 DAVID FLORES ARTILLERY OFFICER Ot I49.5 SICK SINUS SYNDROME 08/14/2016 THOMASDAVID LYONS ARTILLERY OFFICER Ot Z45.02 ENCNTR FOR ADJUST AND MGMT OF AUTOMATIC 08/14/2016 DAVID FLORES ARTILLERY OFFICER Ot Z95.810 PRESENCE OF AUTOMATIC (IMPLANTABLE) CARD 08/14/2016 DAVID FLORES ARTILLERY OFFICER Ot I10 ESSENTIAL (PRIMARY) HYPERTENSION 08/14/2016 DAVID FLORES ARTILLERY OFFICER Ot I42.9 CARDIOMYOPATHY, UNSPECIFIED 08/14/2016 DAVID FLORES ARTILLERY OFFICER Ot I49.5 SICK SINUS SYNDROME 08/14/2016 THOMASDAVID LYONS ARTILLERY OFFICER Ot Z45.02 ENCNTR FOR ADJUST AND MGMT OF AUTOMATIC 08/14/2016 THOMASDAVID LYONS ARTILLERY OFFICER Ot Z95.810 PRESENCE OF AUTOMATIC (IMPLANTABLE) CARD 08/14/2016 MAHSA GAYTANP Ot 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 08/14/2016 MAHSA GAYTANP Ot D50.9 IRON DEFICIENCY ANEMIA, UNSPECIFIED 08/14/2016 MAHSA GAYTANP Ot I42.9 CARDIOMYOPATHY, UNSPECIFIED 08/14/2016 MAHSA GAYTANP Ot K21.9 GASTRO-ESOPHAGEAL REFLUX DISEASE WITHOUT 08/14/2016 MAHSA GAYTANP Ot R97.2 ELEVATED PROSTATE SPECIFIC ANTIGEN [PSA ] 08/14/2016 MAHSA GAYTAN ARTILLERY OFFICER Ot Z79.899 OTHER JAIL (CURRENT) DRUG THERAPY 08/14/2016 MAHSA GAYTAN ARTILLERY OFFICER Ot Z85.46 PERSONAL HISTORY OF MALIGNANT NEOPLASM O 08/14/2016 MAHSA GAYTAN ARTILLERY OFFICER Ot Z95.810 PRESENCE OF AUTOMATIC (IMPLANTABLE) CARD 08/14/2016 MAHSA GAYTAN ARTILLERY OFFICER Ot 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 08/14/2016 GAYTAN, HILAH S ARTILLERY OFFICER Ot D50.9 IRON DEFICIENCY ANEMIA, UNSPECIFIED 08/14/2016 MAHSA GAYTAN ARTILLERY OFFICER Ot I42.9 CARDIOMYOPATHY, UNSPECIFIED 08/14/2016 MAHSA GAYTAN ARTILLERY OFFICER Ot K21.9 GASTRO-ESOPHAGEAL REFLUX DISEASE WITHOUT 08/14/2016 MAHSA GAYTAN ARTILLERY OFFICER Ot R97.2 ELEVATED PROSTATE SPECIFIC ANTIGEN [PSA ] 08/14/2016 MAHSA GAYTANP Ot Z79.899 OTHER UNDERWEAR CUTTER (CURRENT) DRUG THERAPY 08/14/2016 MAHSA GAYTAN ARTILLERY OFFICER Ot Z85.46 PERSONAL HISTORY OF MALIGNANT NEOPLASM O 08/14/2016 MAHSA GAYTAN ARTILLERY OFFICER Ot Z95.810 PRESENCE OF AUTOMATIC (IMPLANTABLE) CARD 08/15/2016 MITESH LINTON, MARY Maier Ot I73.9 PERIPHERAL VASCULAR DISEASE, UNSPECIFIED 08/18/2016 MARY SAGASTUME MD Ot I73.9 PERIPHERAL VASCULAR DISEASE, UNSPECIFIED 08/29/2016 CHRISTOPHER BORREGO DO Ot G47.33 OBSTRUCTIVE SLEEP APNEA (ADULT) (PEDIATR 08/29/2016 CHRISTOPHER BORREGO DO Ot G47.33 OBSTRUCTIVE SLEEP APNEA (ADULT) (PEDIATR 09/02/2016 Ot 204.10 CHRONIC LYMPHOID LEUKEMIA, W/O MENTION A 09/02/2016 Ot 305.1 TOBACCO USE DISORDER 09/02/2016 Ot V10.46 HX-PROSTATIC MALIGNANCY 09/02/2016 Ot V58.66 LONG-TERM (CURRENT) USE OF ASPIRIN 09/02/2016 Ot V58.69 OTH MED,LT,CURRENT USE 09/02/2016 Ot 433.30 MULT BILTRAL ARTERY OCCLUSION WO CEREBRA 09/02/2016 Ot 204.10 CHRONIC LYMPHOID LEUKEMIA, W/O MENTION A 09/02/2016 Ot 788.30 UNSPECIFIED URINARY INCONTINENCE 09/02/2016 Ot V10.46 HX-PROSTATIC MALIGNANCY 09/02/2016 Ot V58.66 LONG-TERM (CURRENT) USE OF ASPIRIN 09/02/2016 Ot V58.69 OTH MED,LT,CURRENT USE 09/02/2016 Ot 204.10 CHRONIC LYMPHOID LEUKEMIA, W/O MENTION A 09/02/2016 Ot 585.3 CHRONIC KIDNEY DISEASE, STAGE III (MODER 09/02/2016 Ot V10.46 HX-PROSTATIC MALIGNANCY 09/02/2016 Ot V58.66 LONG-TERM (CURRENT) USE OF ASPIRIN 09/02/2016 Ot V58.69 OTH MED,LT,CURRENT USE 09/02/2016 Ot 272.4 HYPERLIPIDEMIA NEC/NOS 09/02/2016 Ot 401.9 HYPERTENSION NOS 09/02/2016 Ot 414.01 CORONARY ATHEROSCLEROSIS OF [place] CORON 09/02/2016 Ot V58.69 OTH MED,LT,CURRENT USE 09/02/2016 Ot 204.10 CHRONIC LYMPHOID LEUKEMIA, W/O MENTION A 09/02/2016 Ot 585.3 CHRONIC KIDNEY DISEASE, STAGE III (MODER 09/02/2016 Ot V10.46 HX-PROSTATIC MALIGNANCY 09/02/2016 Ot V58.66 LONG-TERM (CURRENT) USE OF ASPIRIN 09/02/2016 Ot V58.69 OTH MED,LT,CURRENT USE 09/02/2016 Ot 272.4 HYPERLIPIDEMIA NEC/NOS 09/02/2016 Ot V58.69 OTH MED,LT,CURRENT USE 09/02/2016 Ot 401.9 HYPERTENSION NOS 09/02/2016 Ot 414.00 CORON ATHEROSCLER NOS TYPE VESSEL, NATIV 09/02/2016 Ot 425.4 PRIM CARDIOMYOPATHY NEC 09/02/2016 Ot 780.79 OTH MALAISE FATIGUE 09/02/2016 Ot 785.0 TACHYCARDIA NOS 09/02/2016 Ot V58.66 LONG-TERM (CURRENT) USE OF ASPIRIN 09/02/2016 Ot V58.69 OTH MED,LT,CURRENT USE 09/02/2016 Ot V72.63 PRE-PROCEDURAL LABORATORY EXAMINATION 09/02/2016 Ot V72.81 [id number] CARDIOVASCULAR 09/02/2016 Ot 250.00 DIAB ORALIA WO COMPL, TYPE II OR UNSPEC TY 09/02/2016 Ot 305.1 TOBACCO USE DISORDER 09/02/2016 Ot 401.9 HYPERTENSION NOS 09/02/2016 Ot 414.01 CORONARY ATHEROSCLEROSIS OF [place] CORON 09/02/2016 Ot 425.4 PRIM CARDIOMYOPATHY NEC 09/02/2016 Ot V58.66 LONG-TERM (CURRENT) USE OF ASPIRIN 09/02/2016 Ot V58.69 OTH MED,LT,CURRENT USE 09/02/2016 Ot V72.63 PRE-PROCEDURAL LABORATORY EXAMINATION 09/02/2016 Ot V72.81 [id number] CARDIOVASCULAR 09/02/2016 Ot 204.10 CHRONIC LYMPHOID LEUKEMIA, W/O MENTION A 09/02/2016 Ot 425.4 PRIM CARDIOMYOPATHY NEC 09/02/2016 Ot 585.3 CHRONIC KIDNEY DISEASE, STAGE III (MODER 09/02/2016 Ot V10.46 HX-PROSTATIC MALIGNANCY 09/02/2016 Ot V58.66 LONG-TERM (CURRENT) USE OF ASPIRIN 09/02/2016 Ot V58.69 OTH MED,LT,CURRENT USE 09/02/2016 Ot 272.4 HYPERLIPIDEMIA NEC/NOS 09/02/2016 Ot 401.9 HYPERTENSION NOS 09/02/2016 Ot V58.69 OTH MED,LT,CURRENT USE 09/02/2016 Ot 272.4 HYPERLIPIDEMIA NEC/NOS 09/02/2016 Ot 401.9 HYPERTENSION NOS 09/02/2016 Ot V58.69 OTH MED,LT,CURRENT USE 09/02/2016 Ot 204.10 CHRONIC LYMPHOID LEUKEMIA, W/O MENTION A 09/02/2016 Ot 425.4 PRIM CARDIOMYOPATHY NEC 09/02/2016 Ot 585.3 CHRONIC KIDNEY DISEASE, STAGE III (MODER 09/02/2016 Ot V10.46 HX-PROSTATIC MALIGNANCY 09/02/2016 Ot V45.02 AUTO IMPLANTABLE CARDIAC DEFIBRILLATOR I 09/02/2016 Ot V58.66 LONG-TERM (CURRENT) USE OF ASPIRIN 09/02/2016 Ot V58.69 OTH MED,LT,CURRENT USE 09/02/2016 Ot 272.4 HYPERLIPIDEMIA NEC/NOS 09/02/2016 Ot 401.9 HYPERTENSION NOS 09/02/2016 Ot V58.69 OTH MED,LT,CURRENT USE 09/02/2016 Ot 272.4 HYPERLIPIDEMIA NEC/NOS 09/02/2016 Ot 401.9 HYPERTENSION NOS 09/02/2016 Ot V58.69 OTH MED,LT,CURRENT USE 09/02/2016 Ot 272.4 HYPERLIPIDEMIA NEC/NOS 09/02/2016 Ot 401.9 HYPERTENSION NOS 09/02/2016 Ot V58.69 OTH MED,LT,CURRENT USE 09/02/2016 Ot 250.00 DIAB ORALIA WO COMPL, TYPE II OR UNSPEC TY 09/02/2016 MAHSA GAYTAN ARTILLERY OFFICER Ot 204.10 CHRONIC LYMPHOID LEUKEMIA, W/O MENTION A 09/02/2016 MAHSA GAYTAN ARTILLERY OFFICER Ot 280.9 IRON DEFIC ANEMIA NOS 09/02/2016 MAHSA GAYTANP Ot 425.4 PRIM CARDIOMYOPATHY NEC 09/02/2016 MAHSA GAYTAN ARTILLERY OFFICER Ot 585.3 CHRONIC KIDNEY DISEASE, STAGE III ( MODER 09/02/2016 GAYTAN MAHSA Sadler ARTILLERY OFFICER Ot 786.07 WHEEZING 09/02/2016 LUCILA MAHSA Sadler ARTILLERY OFFICER Ot V10.46 HX-PROSTATIC MALIGNANCY 09/02/2016 ELIESER GAYTANIVAN Sadler ARTILLERY OFFICER Ot V45.01 CARDIAC PACEMAKER IN SITU 09/02/2016 LUCILA MAHSA Sadler ARTILLERY OFFICER Ot V58.66 LONG-TERM (CURRENT) USE OF ASPIRIN 09/02/2016 LUCILA MAHSA Sadler ARTILLERY OFFICER Ot V58.69 OTH MED,LT,CURRENT USE 09/02/2016 BAISERENA DAVID L ARTILLERY OFFICER Ot 272.4 HYPERLIPIDEMIA NEC/NOS 09/02/2016 BAISERENA DAVID L ARTILLERY OFFICER Ot V58.69 OTH MED,LT,CURRENT USE 09/02/2016 LUCILA MAHSA Sadler ARTILLERY OFFICER Ot 786.07 WHEEZING 09/02/2016 ABBY JIN MD Ot V72.84 EXAM PRE-OPERATIVE NOS 09/02/2016 TOREY LINTON, Livier FLORES Ot 185 MALIGN NEOPL PROSTATE 09/02/2016 ELIESER GAYTANIVAN Viktoriya ARTILLERY OFFICER Ot 204.10 CHRONIC LYMPHOID LEUKEMIA, W/O MENTION A 09/02/2016 ELIESER GAYTANIVAN Viktoriya ARTILLERY OFFICER Ot 425.4 PRIM CARDIOMYOPATHY NEC 09/02/2016 GAYTAN MAHSA Sadler ARTILLERY OFFICER Ot V10.46 HX-PROSTATIC MALIGNANCY 09/02/2016 MAHSA GAYTAN ARTILLERY OFFICER Ot V45.01 CARDIAC PACEMAKER IN SITU 09/02/2016 ELIESER GAYTANIVAN Viktoriya ARTILLERY OFFICER Ot V58.66 LONG-TERM (CURRENT) USE OF ASPIRIN 09/02/2016 ELIESER GAYTANIVAN Viktoriya ARTILLERY OFFICER Ot V58.69 OTH MED,LT,CURRENT USE 09/02/2016 ANNABEL LINTON, ABBY S Ot 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 09/02/2016 ABBY JIN MD Ot V72.63 PRE-PROCEDURAL LABORATORY EXAMINATION 09/02/2016 ABBY JIN MD Ot V72.81 [id number] CARDIOVASCULAR 09/02/2016 ABBY JIN MD Ot V74.8 SCREEN-BACTERIAL DIS NEC 09/02/2016 CHRISTOPHER ESCOBEDO Ot 185 MALIGN NEOPL PROSTATE 09/02/2016 CHRISTOPHER ESCOBEDO Ot 790.93 ELEVATED PROSTATE SPECIFIC ANTIGEN [PSA] 09/02/2016 TRAV LINTON FAC, ALI FACP CCDS Ot 425.4 PRIM CARDIOMYOPATHY NEC 09/02/2016 ANNABEL LINTON, ABBY S Ot V72.84 EXAM PRE-OPERATIVE NOS 09/02/2016 DAVID FLORES L ARTILLERY OFFICER Ot 272.4 HYPERLIPIDEMIA NEC/NOS 09/02/2016 BAIMA, DAVID L ARTILLERY OFFICER Ot 401.9 HYPERTENSION NOS 09/02/2016 BAIMAZAKDAVID L ARTILLERY OFFICER Ot 414.00 CORON ATHEROSCLER NOS TYPE VESSEL, NATIV 09/02/2016 THOMASZAK LYONSHER L ARTILLERY OFFICER Ot V58.69 OTH MED,LT,CURRENT USE 09/02/2016 MAHSA GAYTAN S ARTILLERY OFFICER Ot 204.10 CHRONIC LYMPHOID LEUKEMIA, W/O MENTION A 09/02/2016 GAYTAN, HILAH S ARTILLERY OFFICER Ot 280.9 IRON DEFIC ANEMIA NOS 09/02/2016 GAYTAN HILAH S ARTILLERY OFFICER Ot 414.00 CORON ATHEROSCLER NOS TYPE VESSEL, NATIV 09/02/2016 LUCILA HILAH S ARTILLERY OFFICER Ot 425.4 PRIM CARDIOMYOPATHY NEC 09/02/2016 ELIESER GAYTANAH S ARTILLERY OFFICER Ot 530.81 ESOPHAGEAL REFLUX 09/02/2016 ELIESER GAYTANAH S ARTILLERY OFFICER Ot V10.46 HX-PROSTATIC MALIGNANCY 09/02/2016 ELIESER GAYTANAH S ARTILLERY OFFICER Ot V45.02 AUTO IMPLANTABLE CARDIAC DEFIBRILLATOR I 09/02/2016 MAHSA GAYTAN S ARTILLERY OFFICER Ot V58.69 OTH MED,LT,CURRENT USE 09/02/2016 MARKDAVID L ARTILLERY OFFICER Ot 272.4 HYPERLIPIDEMIA NEC/NOS 09/02/2016 MARK DAVID L ARTILLERY OFFICER Ot 401.9 HYPERTENSION NOS 09/02/2016 ELIESER GAYTANAH S ARTILLERY OFFICER Ot 204.10 CHRONIC LYMPHOID LEUKEMIA, W/O MENTION A 09/02/2016 ELIESER GAYTANAH S ARTILLERY OFFICER Ot 280.9 IRON DEFIC ANEMIA NOS 09/02/2016 ELIESER GAYTANAH S ARTILLERY OFFICER Ot 414.00 CORON ATHEROSCLER NOS TYPE VESSEL, NATIV 09/02/2016 MAHSA GAYTAN S ARTILLERY OFFICER Ot 425.4 PRIM CARDIOMYOPATHY NEC 09/02/2016 GAYTAN HILAH S ARTILLERY OFFICER Ot 530.81 ESOPHAGEAL REFLUX 09/02/2016 ELIESER GAYTANAH S ARTILLERY OFFICER Ot V10.46 HX-PROSTATIC MALIGNANCY 09/02/2016 MAHSA GAYTAN S ARTILLERY OFFICER Ot V45.02 AUTO IMPLANTABLE CARDIAC DEFIBRILLATOR I 09/02/2016 MAHSA GAYTANP Ot V58.69 OTH MED,LT,CURRENT USE 09/02/2016 ANNABEL LINTON, ABBY Sadler Ot 574.20 CHOLELITHIASIS NOS 09/02/2016 MAHSA GAYTAN ARTILLERY OFFICER Ot 185 MALIGN NEOPL PROSTATE 09/02/2016 MAHSA GAYTAN ARTILLERY OFFICER Ot 793.99 OTH NOSP (ABN) FINDINGS RADIOLOGICAL O 09/02/2016 ANNABEL LINTON, ABBY Sadler Ot 492.8 EMPHYSEMA NEC 09/02/2016 ABBY JIN MD Ot 530.81 ESOPHAGEAL REFLUX 09/02/2016 ABBY JIN MD Ot 574.20 CHOLELITHIASIS NOS 09/02/2016 ANNABEL LINTON, ABBY Sadler Ot V72.83 EXAM PRE-OPERATIVE NEC 09/02/2016 ABBY JIN MD Ot V74.8 SCREEN-BACTERIAL DIS NEC 09/02/2016 ABBY JIN MD Ot V72.84 EXAM PRE-OPERATIVE NOS 09/02/2016 DAVID FLORES ARTILLERY OFFICER Ot 272.0 PURE HYPERCHOLESTEROLEM 09/02/2016 MAHSA GAYTAN ARTILLERY OFFICER Ot 185 MALIGN NEOPL PROSTATE 09/02/2016 MAHSA GAYTAN ARTILLERY OFFICER Ot 204.10 CHRONIC LYMPHOID LEUKEMIA, W/O MENTION A 09/02/2016 MAHSA GAYTAN ARTILLERY OFFICER Ot 280.9 IRON DEFIC ANEMIA NOS 09/02/2016 MAHSA GAYTAN ARTILLERY OFFICER Ot 425.4 PRIM CARDIOMYOPATHY NEC 09/02/2016 MAHSA GAYTAN ARTILLERY OFFICER Ot 530.81 ESOPHAGEAL REFLUX 09/02/2016 MAHSA GAYTAN ARTILLERY OFFICER Ot 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 09/02/2016 MAHSA GAYTAN ARTILLERY OFFICER Ot V45.01 CARDIAC PACEMAKER IN SITU 09/02/2016 MAHSA GAYTANP Ot V58.69 OTH MED,LT,CURRENT USE 09/02/2016 Ot 786.07 WHEEZING 09/02/2016 JULIA LINTON, POPEYE Maier Ot 721.3 LUMBOSACRAL SPONDYLOSIS 09/02/2016 JULIA LINTON, POPEYE Maier Ot 722.52 LUMB/LUMBOSAC DISC DEGEN 09/02/2016 POPEYE DUMONT MD Ot V58.69 OTH MED,LT,CURRENT USE 09/02/2016 MAHSA GAYTAN ARTILLERY OFFICER Ot 185 MALIGN NEOPL PROSTATE 09/02/2016 MAHSA GAYTAN ARTILLERY OFFICER Ot 204.10 CHRONIC LYMPHOID LEUKEMIA, W/O MENTION A 09/02/2016 MAHSA GAYTAN ARTILLERY OFFICER Ot 280.9 IRON DEFIC ANEMIA NOS 09/02/2016 MAHSA GAYTAN ARTILLERY OFFICER Ot 425.4 PRIM CARDIOMYOPATHY NEC 09/02/2016 MAHSA GAYTAN ARTILLERY OFFICER Ot 530.81 ESOPHAGEAL REFLUX 09/02/2016 MAHSA GAYTAN ARTILLERY OFFICER Ot 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 09/02/2016 MAHSA GAYTANP Ot V45.01 CARDIAC PACEMAKER IN SITU 09/02/2016 MAHSA GAYTANP Ot V58.69 OT MED,LT,CURRENT USE 09/02/2016 MARY SAGASTUME MD Ot 443.9 PERIPH VASCULAR DIS NOS 09/02/2016 MARY SAGASTUME MD Ot 724.02 SPINAL STENOSIS, LUMBAR REG, W/OUT NEURO 09/02/2016 MARY SAGASTUME MD Ot 782.2 LOCAL SUPRFICIAL SWELLNG 09/02/2016 MARY SAGASTUME MD Ot V72.63 PRE-PROCEDURAL LABORATORY EXAMINATION 09/02/2016 MARY SAGASTUME MD Ot V74.8 SCREEN-BACTERIAL DIS NEC 09/02/2016 DAVID FLORES ARTILLERY OFFICER Ot I10 ESSENTIAL (PRIMARY) HYPERTENSION 09/02/2016 DAVID FLORESP Ot I42.9 CARDIOMYOPATHY, UNSPECIFIED 09/02/2016 DAVID FLORESP Ot I77.9 DISORDER OF ARTERIES AND ARTERIOLES, UNS 09/02/2016 DAVID FLORES ARTILLERY OFFICER Ot J44.9 CHRONIC OBSTRUCTIVE PULMONARY DISEASE, U 09/02/2016 DAVID FLORES ARTILLERY OFFICER Ot Z95.810 PRESENCE OF AUTOMATIC (IMPLANTABLE) CARD 09/02/2016 MARY SAGASTUME MD Ot M48.06 SPINAL STENOSIS, LUMBAR REGION 09/02/2016 MARY SAGASTUME MD Ot Z01.812 ENCOUNTER FOR PREPROCEDURAL LABORATORY E 09/02/2016 MARY SAGASTUME MD Ot Z11.2 ENCOUNTER FOR SCREENING FOR OTHER BACTER 09/02/2016 CHRISTOPHER ESCOBEDO Ot 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 09/02/2016 CHRISTOPHER ESCOBEDO Ot D50.9 IRON DEFICIENCY ANEMIA, UNSPECIFIED 09/02/2016 CHRISTOPHER ESCOBEDO Ot I42.9 CARDIOMYOPATHY, UNSPECIFIED 09/02/2016 CHRISTOPHER ESCOBEDO Ot K21.9 GASTRO-ESOPHAGEAL REFLUX DISEASE WITHOUT 09/02/2016 CHRISTOPHER ESCOBEDO Ot R97.2 ELEVATED PROSTATE SPECIFIC ANTIGEN [PSA] 09/02/2016 CHRISTOPHER ESCOBEDO Ot Z79.899 OTHER UNDERWEAR CUTTER (CURRENT) DRUG THERAPY 09/02/2016 CHRISTOPHER ESCOBEDO Ot Z85.46 PERSONAL HISTORY OF MALIGNANT NEOPLASM O 09/02/2016 CHRISTOPHER ESCOBEDO Ot Z95.810 PRESENCE OF AUTOMATIC (IMPLANTABLE) CARD 09/02/2016 DAVID FLORES ARTILLERY OFFICER Ot I10 ESSENTIAL (PRIMARY) HYPERTENSION 09/02/2016 THOMASDAVID LYONS Fiordaliza ARTILLERY OFFICER Ot I42.9 CARDIOMYOPATHY, UNSPECIFIED 09/02/2016 THOMASDAVID LYONS Fiordaliza ARTILLERY OFFICER Ot I49.5 SICK SINUS SYNDROME 09/02/2016 THOMASDAVID LYONS ARTILLERY OFFICER Ot Z45.02 ENCNTR FOR ADJUST AND MGMT OF AUTOMATIC 09/02/2016 THOMASDAVID LYONS ARTILLERY OFFICER Ot Z95.810 PRESENCE OF AUTOMATIC (IMPLANTABLE) CARD 09/02/2016 DAVID FLORES ARTILLERY OFFICER Ot I10 ESSENTIAL (PRIMARY) HYPERTENSION 09/02/2016 DAVID FLORES ARTILLERY OFFICER Ot I42.9 CARDIOMYOPATHY, UNSPECIFIED 09/02/2016 THOMASDAVID LYONS ARTILLERY OFFICER Ot I49.5 SICK SINUS SYNDROME 09/02/2016 THOMASDAVID LYONS ARTILLERY OFFICER Ot Z45.02 ENCNTR FOR ADJUST AND MGMT OF AUTOMATIC 09/02/2016 DAVID FLORES ARTILLERY OFFICER Ot Z95.810 PRESENCE OF AUTOMATIC (IMPLANTABLE) CARD 09/02/2016 MAHSA GAYTAN ARTILLERY OFFICER Ot 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 09/02/2016 MAHSA GAYTANP Ot D50.9 IRON DEFICIENCY ANEMIA, UNSPECIFIED 09/02/2016 MAHSA GAYTAN ARTILLERY OFFICER Ot I42.9 CARDIOMYOPATHY, UNSPECIFIED 09/02/2016 MAHSA GAYTAN ARTILLERY OFFICER Ot K21.9 GASTRO-ESOPHAGEAL REFLUX DISEASE WITHOUT 09/02/2016 GAYTAN, HILAH S ARTILLERY OFFICER Ot R97.2 ELEVATED PROSTATE SPECIFIC ANTIGEN [PSA ] 09/02/2016 GAYTANMAHSA Sadler ARTILLERY OFFICER Ot Z79.899 OTHER JAIL (CURRENT) DRUG THERAPY 09/02/2016 MAHSA GAYTAN ARTILLERY OFFICER Ot Z85.46 PERSONAL HISTORY OF MALIGNANT NEOPLASM O 09/02/2016 MAHSA GAYTAN ARTILLERY OFFICER Ot Z95.810 PRESENCE OF AUTOMATIC (IMPLANTABLE) CARD 09/02/2016 MAHSA GAYTAN ARTILLERY OFFICER Ot 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 09/02/2016 MAHSA GAYTAN ARTILLERY OFFICER Ot D50.9 IRON DEFICIENCY ANEMIA, UNSPECIFIED 09/02/2016 MAHSA GAYTAN ARTILLERY OFFICER Ot I42.9 CARDIOMYOPATHY, UNSPECIFIED 09/02/2016 MAHSA GAYTAN ARTILLERY OFFICER Ot K21.9 GASTRO-ESOPHAGEAL REFLUX DISEASE WITHOUT 09/02/2016 MAHSA GAYTAN ARTILLERY OFFICER Ot R97.2 ELEVATED PROSTATE SPECIFIC ANTIGEN [PSA ] 09/02/2016 MAHSA GAYTAN ARTILLERY OFFICER Ot Z79.899 OTHER UNDERWEAR CUTTER (CURRENT) DRUG THERAPY 09/02/2016 MAHSA GAYTAN ARTILLERY OFFICER Ot Z85.46 PERSONAL HISTORY OF MALIGNANT NEOPLASM O 09/02/2016 MAHSA GAYTAN ARTILLERY OFFICER Ot Z95.810 PRESENCE OF AUTOMATIC (IMPLANTABLE) CARD 09/02/2016 MITESH LINTON, MARY Maier Ot I73.9 PERIPHERAL VASCULAR DISEASE, UNSPECIFIED 09/05/2016 MARY SAGASTUME MD Ot I73.9 PERIPHERAL VASCULAR DISEASE, UNSPECIFIED 09/08/2016 CHRISTOPHER ESCOBEDO Ot 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 09/08/2016 CHRISTOPHER ESCOBEDO N Ot D50.9 IRON DEFICIENCY ANEMIA, UNSPECIFIED 09/08/2016 CHRISTOPHER ESCOBEDO N Ot I42.9 CARDIOMYOPATHY, UNSPECIFIED 09/08/2016 CHRISTOPHER ESCOBEDO N Ot K21.9 GASTRO-ESOPHAGEAL REFLUX DISEASE WITHOUT 09/08/2016 GREGGCHRISTOPHER BABCOCK N Ot R97.2 ELEVATED PROSTATE SPECIFIC ANTIGEN [PSA] 09/08/2016 CHRISTOPHER ESCOBEDO N Ot Z79.899 OTHER UNDERWEAR CUTTER (CURRENT) DRUG THERAPY 09/08/2016 CHRISTOPHER ESCOBEDO N Ot Z85.46 PERSONAL HISTORY OF MALIGNANT NEOPLASM O 09/08/2016 CHRISTOPHER ESCOBEDO Ot Z95.810 PRESENCE OF AUTOMATIC (IMPLANTABLE) CARD 09/10/2016 MITESH LINTON, MARY Maier Ot I73.9 PERIPHERAL VASCULAR DISEASE, UNSPECIFIED 09/16/2016 NASIMA LINTON, SYBIL Nichols Ot D64.9 ANEMIA, UNSPECIFIED 09/16/2016 NASIMA LINTON, SYBIL Nichols Ot D64.9 ANEMIA, UNSPECIFIED 09/30/2016 CHRISTOPHER ESCOBEDO Sebastián Ot 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 09/30/2016 CHRISTOPHER ESCOBEDO Sebastián Ot D50.9 IRON DEFICIENCY ANEMIA, UNSPECIFIED 09/30/2016 CHRISTOPHER ESCOBEDO Sebastián Ot I42.9 CARDIOMYOPATHY, UNSPECIFIED 09/30/2016 CHRISTOPHER ESCOBEDO Sebastián Ot K21.9 GASTRO-ESOPHAGEAL REFLUX DISEASE WITHOUT 09/30/2016 CHRISTOPHER ESCOBEDO Sebastián Ot R97.2 ELEVATED PROSTATE SPECIFIC ANTIGEN [PSA] 09/30/2016 CHRISTOPHER ESCOBEDO Sebastián Ot Z79.899 OTHER JAIL (CURRENT) DRUG THERAPY 09/30/2016 CHRISTOPHER ESCOBEDO Sebastián Ot Z85.46 PERSONAL HISTORY OF MALIGNANT NEOPLASM O 09/30/2016 CHRISTOPHER ESCOBEDO Ot Z95.810 PRESENCE OF AUTOMATIC (IMPLANTABLE) CARD 10/15/2016 KAYLAH LINTON, LEMUEL Landaverde Ot Z01.818 ENCOUNTER FOR OTHER PREPROCEDURAL EXAMIN 10/16/2016 KAYLAH LINTON, LEMUEL Landaverde Ot K57.30 DVRTCLOS OF LG INT W/O PERFORATION OR AB 10/16/2016 LEMUEL ADRIAN MD Ot K64.8 OTHER HEMORRHOIDS 10/16/2016 LEMUEL ADRIAN MD Ot K92.1 MELENA 10/17/2016 LEMUEL ADRIAN MD Ot K57.30 DVRTCLOS OF LG INT W/O PERFORATION OR AB 10/17/2016 LEMUEL ADRIAN MD Ot K64.8 OTHER HEMORRHOIDS 10/17/2016 LEMUEL ADRIAN MD Ot K92.1 MELENA 10/18/2016 LEMUEL ADRIAN MD Ot K57.30 DVRTCLOS OF LG INT W/O PERFORATION OR AB 10/18/2016 LEMUEL ADRIAN MD Ot K64.8 OTHER HEMORRHOIDS 10/18/2016 LEMUEL ADRIAN MD Ot K92.1 MELENA 10/20/2016 KAYLAH LINTON, LEMUEL Landaverde Ot Z01.818 ENCOUNTER FOR OTHER PREPROCEDURAL EXAMIN 10/21/2016 CHRISTOPHER ESCOBEDO Ot 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 10/21/2016 CHRISTOPHER ESCOBEDO Ot D50.9 IRON DEFICIENCY ANEMIA, UNSPECIFIED 10/21/2016 CHRISTOPHER ESCOBEDO Ot I42.9 CARDIOMYOPATHY, UNSPECIFIED 10/21/2016 CHRISTOPHER ESCOBEDO Ot K21.9 GASTRO-ESOPHAGEAL REFLUX DISEASE WITHOUT 10/21/2016 CHRISTOPHER ESCOBEDO Ot R97.20 ELEVATED PROSTATE SPECIFIC ANTIGEN [PSA] 10/21/2016 CHRISTOPHER ESCOBEDO Ot Z79.899 OTHER UNDERWEAR CUTTER (CURRENT) DRUG THERAPY 10/21/2016 CHRISTOPHER ESCOBEDO Sebastián Ot Z85.46 PERSONAL HISTORY OF MALIGNANT NEOPLASM O 10/21/2016 CHRISTOPHER ESCOBEDO Sebastián Ot Z95.810 PRESENCE OF AUTOMATIC (IMPLANTABLE) CARD 10/22/2016 KAYLAH LINTON, LEMUEL Landaverde Ot K57.30 DVRTCLOS OF LG INT W/O PERFORATION OR AB 10/22/2016 KAYLAH LINTON, LEMUEL Landaverde Ot K64.8 OTHER HEMORRHOIDS 10/22/2016 KAYLAH LINTON, LEMUEL Landaverde Ot K92.1 MELENA 11/06/2016 OLYA BOYD TALENT RECRUITER Ot 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 11/06/2016 OLYA BOYD TALENT RECRUITER Ot R06.00 DYSPNEA, UNSPECIFIED 11/06/2016 OLYA BOYD TALENT RECRUITER Ot Z72.0 TOBACCO USE 11/06/2016 OLYA BOYD TALENT RECRUITER Ot 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 11/06/2016 OLYA BOYD TALENT RECRUITER Ot R06.00 DYSPNEA, UNSPECIFIED 11/06/2016 OLYA BOYD TALENT RECRUITER Ot Z72.0 TOBACCO USE 11/14/2016 NASIMA LINTON, SYBIL Nichols Ot D64.9 ANEMIA, UNSPECIFIED 11/19/2016 NASIMA LINTON, SYBIL Nichols Ot D64.9 ANEMIA, UNSPECIFIED 11/27/2016 OLYA BOYD TALENT RECRUITER Ot 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 11/27/2016 OLYA BOYD TALENT RECRUITER Ot R06.00 DYSPNEA, UNSPECIFIED 11/27/2016 OLYA BOYD TALENT RECRUITER Ot Z72.0 TOBACCO USE 12/04/2016 CHRISTOPHER ESCOBEDO N Ot 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 12/04/2016 CHRISTOPHER ESCOBEDO N Ot D50.9 IRON DEFICIENCY ANEMIA, UNSPECIFIED 12/04/2016 CHRISTOPHER ESCOBEDO N Ot I42.9 CARDIOMYOPATHY, UNSPECIFIED 12/04/2016 CHRISTOPHER ESCOBEDO N Ot K21.9 GASTRO-ESOPHAGEAL REFLUX DISEASE WITHOUT 12/04/2016 GREGGCHRISTOPHER N Ot R97.20 ELEVATED PROSTATE SPECIFIC ANTIGEN [PSA] 12/04/2016 CHRISTOPHER ESCOBEDO N Ot Z79.899 OTHER UNDERWEAR CUTTER (CURRENT) DRUG THERAPY 12/04/2016 GREGGCHRISTOPHER BABCOCK N Ot Z85.46 PERSONAL HISTORY OF MALIGNANT NEOPLASM O 12/04/2016 GREGGCHRISTOPHER BABCOCK N Ot Z95.810 PRESENCE OF AUTOMATIC (IMPLANTABLE) CARD 12/04/2016 OLYA BOYD TALENT RECRUITER Ot 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 12/04/2016 OLYA BOYD TALENT RECRUITER Ot R06.00 DYSPNEA, UNSPECIFIED 12/04/2016 OLYA BOYD TALENT RECRUITER Ot Z72.0 TOBACCO USE 12/14/2016 NASIMA LINTON, SYBIL Nichols Ot D64.9 ANEMIA, UNSPECIFIED 12/20/2016 NASIMA LINTON, SYBIL Nichols Ot D64.9 ANEMIA, UNSPECIFIED 12/28/2016 CHRISTOPHER ESCOBEDO N Ot 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 12/28/2016 CHRISTOPHER ESCOBEDO N Ot D50.9 IRON DEFICIENCY ANEMIA, UNSPECIFIED 12/28/2016 CHRISTOPHER ESCOBEDO N Ot I42.9 CARDIOMYOPATHY, UNSPECIFIED 12/28/2016 GREGGCHRISTOPHER BABCOCK N Ot K21.9 GASTRO-ESOPHAGEAL REFLUX DISEASE WITHOUT 12/28/2016 CHRISTOPHER ESCOBEDO N Ot R97.20 ELEVATED PROSTATE SPECIFIC ANTIGEN [PSA] 12/28/2016 CHRISTOPHER ESCOBEDO N Ot Z79.899 OTHER UNDERWEAR CUTTER (CURRENT) DRUG THERAPY 12/28/2016 CHRISTOPHER ESCOBEDO N Ot Z85.46 PERSONAL HISTORY OF MALIGNANT NEOPLASM O 12/28/2016 GREGGCHRISTOPHER BABCOCK N Ot Z95.810 PRESENCE OF AUTOMATIC (IMPLANTABLE) CARD 01/26/2017 NASIMA LINTON, SYBIL Nichols Ot D64.9 ANEMIA, UNSPECIFIED 01/28/2017 NASIMA LINTON, SYBIL Nichols Ot D64.9 ANEMIA, UNSPECIFIED 02/23/2017 KAYLAH LINTON, LEMUEL Landaverde Ot D50.9 IRON DEFICIENCY ANEMIA, UNSPECIFIED 02/23/2017 KAYLAH LINTON, LEMUEL Landaverde Ot K21.9 GASTRO-ESOPHAGEAL REFLUX DISEASE WITHOUT 02/23/2017 KAYLAH LINTON, LEMUEL Landaverde Ot 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 02/24/2017 KAYLAH LINTON, LEMUEL Landaverde Ot D50.9 IRON DEFICIENCY ANEMIA, UNSPECIFIED 02/24/2017 KAYLAH LINTON, LEMUEL Landaverde Ot K21.9 GASTRO-ESOPHAGEAL REFLUX DISEASE WITHOUT 02/24/2017 KAYLAH LINTON, LEMUEL Landaverde Ot 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 02/27/2017 ZUHAIR PASTOR APRN Ot D64.9 ANEMIA, UNSPECIFIED 02/27/2017 ZUHAIR PASTOR APRN Ot R53.1 WEAKNESS Procedures Results Test Result Range RED CELLS LEUKO REDUCED AS1 - 09/15/16 14:50 RED CELLS LEUKO REDUCED AS1 TRANSFUSED 1022 NRG Blood type T Indirect antibody screen panel - 09/15/16 14:50 ABO+Rh group AP NRG Transfusion band number [id number] NRG Blood group antibody screen NEGATIVE NRG RED CELLS LEUKO REDUCED AS1 - 01/26/17 10:05 RED CELLS LEUKO REDUCED AS1 TRANSFUSED 1417 NRG Blood type T Indirect antibody screen panel - 01/26/17 10:05 ABO+Rh group AP NRG Transfusion band number [id number] NRG Blood group antibody screen NEGATIVE NRG RED CELLS LEUKO REDUCED AS1 - 02/26/17 09:59 RED CELLS LEUKO REDUCED AS1 TRANSFUSED 1045 NRG Blood type T Indirect antibody screen panel - 02/26/17 09:59 ABO+Rh group AP NRG Transfusion band number [id number] NRG Blood group antibody screen NEGATIVE NRG Encounters ACCT No. Visit Date/Time Discharge Status Pt. Type Provider Facility Loc./Unit Complaint [id number] 02/26/2017 09:35:00 2016 15:10:00 DIS Outpatient ZUHAIR PASTOR APRN [facility] ANEMIA,WEAKNESS [id number] 02/23/2017 07:47:00 2016 10:10:00 DIS Outpatient KAYLAH LINTON, LEMUEL Landaverde [facility] ENDO GERD [id number] 02/20/2017 13:00:00 2016 13:00:00 CAN Preadmit KAYLAH LINTON, LEMUEL Landaverde [facility] PREOP GERD [id number] 02/04/2017 06:01:00 2016 11:03:00 DIS Outpatient KAYLAH LINTON, LEMUEL Landaverde [facility] PREOP GERD [id number] 01/26/2017 09:40:00 2016 17:35:00 DIS Outpatient SYBIL DEL REAL MD [facility] ANEMIA,LOW HEMOGLOBIN [id number] 10/02/2016 09:51:00 2016 00:01:00 DIS Outpatient CHRISTOPHER ESCOBEDO [facility] ONC [id number] 09/15/2016 14:00:00 2016 00:01:00 DIS Outpatient SYBIL DEL REAL MD [facility] ANEMIA [id number] 10/16/2016 08:59:00 2015 11:50:00 DIS Outpatient KAYLAH LINTON, LEMUEL Landaverde [facility] OCCULT STOOLS [id number] 07/16/2016 08:48:00 2015 10:32:00 DIS Outpatient CHRISTOPHER ESCOBEDO [facility] ONC [id number] 08/28/2016 20:54:00 2015 06:20:00 DIS Outpatient CHRISTOPHER BORREGO DO [facility] SLEEP G47.33 [id number] 03/27/2016 08:51:00 2015 00:01:00 DIS Outpatient CHRISTOPHER ESCOBEDO [facility] ONC [id number] 10/04/2015 08:39:00 2014 23:59:59 CLS Outpatient DAVID FLORES [facility] CARD CARDIOMYOPATHY [id number] 06/18/2015 14:51:00 2014 00:01:00 DIS Outpatient GREGG CHRISTOPHER N [facility] ONC [id number] 08/27/2015 07:46:00 2014 13:35:00 DIS Outpatient MARY SAGASTUME MD [facility] SDC LESION [id number] 08/23/2015 08:12:00 2014 23:59:59 CLS Outpatient MARY SAGASTUME MD [facility] PREOP LESION [id number] 08/02/2015 08:46:00 2014 23:59:59 CLS Outpatient MARY SAGASTUME MD [facility] RAD STENOSIS [id number] 08/01/2015 11:10:00 2014 23:59:59 CLS Outpatient MARY SAGASTUME MD [facility] RAD STENOSIS,CLAUDICATION [id number] 06/05/2015 13:55:00 2014 23:59:59 CLS Outpatient MAHSA GAYTAN [facility] ONC [id number] 04/02/2015 12:50:00 2014 23:59:59 CLS Outpatient POPEYE DUMONT MD [facility] CARD DDD [id number] 12/29/2014 08:52:00 2014 10:04:00 DIS Outpatient POPEYE DUMONT MD [facility] CARD DDD [id number] 11/16/2014 12:03:00 2013 23:59:59 CLS Outpatient CHRISTOPHER ESCOBEDO [facility] ONC [id number] 10/31/2014 09:10:00 2013 23:59:59 CLS Outpatient MAHSA GAYTANP [facility] ONC [id number] 09/18/2014 08:05:00 2013 23:59:59 CLS Outpatient DAVID FLORES [facility] LAB HYPERCHOLESTEREMIA [id number] 09/07/2014 06:15:00 2013 10:55:00 DIS Outpatient ABBY JIN MD [facility] HISTORY BARRX [id number] 09/06/2014 07:23:00 2013 23:59:59 CLS Outpatient ABBY JIN MD [facility] PREOP HISTORY BARRX [id number] 05/18/2014 13:47:00 2013 00:01:00 DIS Outpatient CHRISTOPHER ESCOBEDO [facility] ONC [id number] 07/27/2014 10:42:00 2013 23:59:59 CLS Outpatient MAHSA GAYTAN [facility] CARD PROSTATE CA [id number] 05/19/2014 11:00:00 2013 16:25:00 DIS Outpatient ABBY JIN MD [facility] ABDOMINAL PAIN;GALLSTONES [id number] 05/18/2014 13:03:00 2013 23:59:59 CLS Outpatient ABBY JIN MD [facility] PREOP ABDOMINAL PAIN;GALLSTONES [id number] 05/17/2014 06:52:00 2013 23:59:59 CLS Outpatient ABBY JIN MD [facility] RAD ABD PAIN [id number] 05/04/2014 12:51:00 2013 23:59:59 CLS Outpatient MAHSA GAYTAN [facility] ONC [id number] 01/30/2014 13:19:00 2013 00:01:00 DIS Outpatient CHRISTOPHER ESCOBEDO [facility] ONC [id number] 03/08/2014 07:05:00 2013 23:59:59 CLS Outpatient DAVID FLORES [facility] LAB HYPERTENSION,HYPERLIPIDEMIA, STATIN [place] [id number] 12/27/2013 13:22:00 2013 23:59:59 CLS Outpatient MAHSA GAYTAN [facility] ONC [id number] 12/08/2013 07:00:00 2013 10:05:00 DIS Outpatient ABBY JIN MD [facility] SDC GERD [id number] 11/02/2013 07:16:00 2012 23:59:59 CLS Outpatient ABBY JIN MD [facility] PREOP HX BARRETTS [id number] 11/02/2013 07:14:00 2012 23:59:59 CLS Outpatient DAVID FLORES [facility] LAB CAD,HYPERTENSION,STATIN [place], HYPERLIPIDEMIA [id number] 09/22/2013 09:52:00 2012 00:01:00 DIS Outpatient CHRISTOPHER ESCOBEDO [facility] ONC [id number] 09/06/2013 08:08:00 2012 23:59:59 CLS Outpatient TRAV LINTON FACCLA FACP CCDS [facility] CARD CM [id number] 08/25/2013 08:30:00 2012 15:00:00 DIS Outpatient ABBY JIN MD [facility] SDC BARRX [id number] 08/24/2013 10:09:00 2012 23:59:59 CLS Outpatient ABBY JIN MD [facility] PREOP BARRX [id number] 07/05/2013 10:50:00 2012 23:59:59 CLS Outpatient CHRISTOPHER ESCOBEDO [facility] RAD PROSTATE CA,ELEVATED PSA [id number] 06/21/2013 09:12:00 2012 23:59:59 CLS Outpatient MAHSA GAYTAN [facility] ONC [id number] 06/16/2013 07:28:00 2012 11:35:00 DIS Outpatient ABBY JIN MD [facility] ANEMIA [id number] 06/15/2013 07:21:00 2012 23:59:59 CLS Outpatient ABBY JIN MD [facility] PREOP ANEMIA [id number] 06/09/2013 07:56:00 2012 23:59:59 CLS Outpatient Livier LEMA MD [facility] LAB MALIGNANT NEOPLASM OF PROSTATE [id number] 05/18/2013 09:15:00 2012 23:59:59 CLS Outpatient MAHSA GAYTANP [facility] RAD WHEEZING [id number] 05/17/2013 10:25:00 2012 23:59:59 CLS Outpatient MAHSA GAYTAN ARTILLERY OFFICER [facility] ONC [id number] 05/04/2013 09:12:00 2012 23:59:59 CLS Outpatient DAVID FLORES [facility] LAB HYPERLIPDEMA [id number] 12/29/2016 00:08:00 PEN Preadmit CHRISTOPHER ESCOBEDO [facility] ONC [id number] 12/15/2016 00:10:00 PEN Preadmit NASIMA LINTON, SYBIL Nichols [facility] SDC ANEMIA [id number] 11/05/2016 14:57:00 ACT Outpatient OLYA BOYD APRN [facility] RT CLL,TOBACCO USER,DYSPNEA [id number] 10/14/2016 05:39:00 ACT Outpatient KAYLAH LINTON, LEMUEL Landaverde [facility] PREOP OCCULT STOOLS [id number] 08/14/2016 08:42:00 ACT Outpatient MARY SAGASTUME MD [facility] RAD VASCULAR DISEASE [id number] 07/02/2016 14:42:00 ACT Outpatient MAHSA GAYTANP [facility] ONC [id number] 06/26/2016 10:00:00 ACT Outpatient MAHSA GAYTANP [facility] ONC [id number] 04/29/2016 10:00:00 ACT Outpatient DAVID FLORES [facility] CARD AICD DISCHARGE,CARDIOMYOPATHY,HTN,SSS [id number] 04/22/2016 14:30:00 ACT Outpatient DAVID FLORESP [facility] LAB A1CD DISCHARGE, HTN, SSS, CARDIOMYOPATHY [id number] 12/10/2015 08:40:00 ACT Outpatient CHRISTOPHER ESCOBEDO [facility] ONC [id number] 12/03/2015 07:30:00 PEN Preadmit MARY SAGASTUME MD [facility] SDC STENIOS [id number] 11/19/2015 09:24:00 ACT Outpatient MARY SAGASTUME MD [facility] PREOP STEINOS [id number] 02/06/2015 10:03:00 Document Registration [id number] 10/20/2014 14:53:00 Document Registration [id number] 02/10/2013 16:11:00 Document Registration [id number] 02/09/2013 08:21:00 Document Registration [id number] 02/02/2013 09:50:00 Document Registration [id number] 11/12/2012 07:16:00 Document Registration [id number] 11/01/2012 11:17:00 Document Registration [id number] 10/05/2012 06:38:00 Document Registration [id number] 07/29/2012 13:59:00 Document Registration [id number] 06/30/2012 06:29:00 Document Registration [id number] 05/18/2012 07:31:00 Document Registration [id number] 04/27/2012 05:43:00 Document Registration [id number] 04/23/2012 10:53:00 Document Registration [id number] 04/23/2012 08:11:00 Document Registration [id number] 04/13/2012 05:35:00 Document Registration [id number] 04/12/2012 08:54:00 Document Registration [id number] 02/16/2012 07:40:00 Document Registration [id number] 01/21/2012 10:54:00 Document Registration [id number] 01/15/2012 08:41:00 Document Registration [id number] 10/16/2011 13:18:00 Document Registration [id number] 07/11/2011 10:46:00 Document Registration [id number] 06/06/2011 10:57:00 Document Registration [id number] 04/09/2011 09:47:00 Document Registration [id number] 01/29/2011 08:12:00 Document Registration [id number] 01/28/2011 09:59:00 Document Registration [id number] 01/07/2011 13:35:00 Document Registration [id number] 09/30/2010 08:56:00 Document Registration [id number] 07/10/2010 07:23:00 Document Registration [id number] 06/24/2010 09:45:00 Document Registration [id number] 05/27/2010 09:54:00 Document Registration [id number] 04/25/2010 08:23:00 Document Registration [id number] 03/18/2010 10:02:00 Document Registration [id number] 01/31/2010 07:58:00 Document Registration [id number] 12/17/2009 10:47:00 Document Registration [id number] 12/11/2009 09:07:00 Document Registration [id number] 11/13/2009 00:00:00 Document Registration [id number] 10/31/2009 07:27:00 Document Registration [id number] 08/14/2009 11:07:00 Document Registration [id number] 06/13/2009 07:04:00 Document Registration [id number] 05/30/2009 14:02:00 Document Registration [id number] 05/04/2009 07:47:00 Document Registration [id number] 05/03/2009 10:15:00 Document Registration
--- OUTSIDE RECORDS SUMMARY | 2017-03-10 17:04 | XMS REPORT ---
Author Author [facility] Organization [facility] Address [address] [place], [place] [id number] Care Team Providers Care Rougher Machine Operator Name Role Phone PCP Unavailable Allergies and [...] (PSA) Active 12/04/2014 Urinary Incontinence Active 12/04/2014 Vital Signs Date Time BP-Sys(mm[Hg] BP-Jayla(mm[Hg]) HR(bpm) [...] specific antigen (PSA) 12/04/2014 Urinary Incontinence 12/04/2014 Prostate Cancer Nov 13 2014 11:08AM Diabetes [...] to other site Jan 15 2015 10:58AM Payers Insurance Name Company Name Plan Name Plan Number Policy Number Policy Group Number Start Date Medicare Part A Medicare Part A [id number] N/A [facility] [id number] N/A Medicare Part B Medicare Of [place] [id number] N/A History of Encounters Visit Date Visit Type Provider 01/15/2015 Office visit Mike Limon MD 12/04/2014 Office visit Mike Limon MD 11/13/2014 Office visit Dieudonne Moreno DO
--- OUTSIDE RECORDS SUMMARY | 2017-03-10 17:05 | XMS REPORT ---
Author Author Mike Limon Organization [facility] Address [address] [place], [place] [id number] Care Team Providers Care Corporate Physical Security Supervisor Name Role Phone Mike Limon PCP Unavailable Allergies and Adverse Reactions Name Reaction Notes NO KNOWN DRUG ALLERGIES Plan of Treatment Planned Activity Comments Planned Date Planned Time Plan/Goal ASSAY OF PSA TOTAL 01/28/2016 12:00 AM ASSAY OF TOTAL TESTOSTERONE 01/15/2015 [...] 3:04PM Drug therapy Jan 28 2016 3:04PM Payers Insurance Name Company Name Plan Name Plan Number Policy Number Policy Group Number Start Date Medicare Part A Medicare Part A [id number] N/A [facility] [id number] N/A Medicare Part B Medicare [place] [id number] N/A History of Encounters Visit Date Visit Type Provider 10/02/2015 Office visit V Pilar Limon MD 05/29/2015 Office visit V Pilar Limon MD 01/15/2015 Office visit V Pilar Limon MD 12/04/2014 Office visit V Pilar Limon MD 11/13/2014 Office visit Dieudonne Moreno DO
--- OUTSIDE RECORDS SUMMARY | 2017-03-10 17:05 | XMS REPORT ---
Author Author Mike Limon Organization [facility] Address [address] [place], [place] [address] Care Team Providers Care Custom Feed Corn Operator Name Role Phone Mike Limon PCP Unavailable [...] Adenocarcinoma of prostate Oct 07 2016 11:41AM Payers Insurance Name Company Name Plan Name Plan Number Policy Number Policy Group Number Start Date Medicare Part A Medicare Part A [id number] N/A BCBS [facility] [id number] N/A Medicare Part B Medicare [place] [id number] N/A Medicare Part A Medicare - Lab/Xray [id number] N/A History of Encounters Visit Date Visit [...]
--- OUTSIDE RECORDS SUMMARY | 2017-03-10 17:05 | XMS REPORT ---
Author Author Mike Limon Organization [facility] Address [address] [place], [place] [id number] Care Team Providers Care Railroad Firer/Fireman Name Role Phone Mike Limon PCP Unavailable [...] Adenocarcinoma of prostate Jun 03 2016 11:30AM Payers Insurance Name Company Name Plan Name Plan Number Policy Number Policy Group Number Start Date Medicare Part A Medicare Part A [id number] N/A BCBS [facility] [id number] N/A Medicare Part B Medicare [place] [id number] N/A Medicare Part A Medicare - Lab/Xray [id number] N/A History of Encounters Visit Date Visit Type Provider 06/03/2016 Office visit V Pilar Limon MD 02/01/2016 Office visit V Pilar Limon MD 10/02/2015 Office visit V Pilar Limon MD 05/29/2015 Office visit V Pilar Limon MD 01/15/2015 Office visit V Pilar Limon MD 12/04/2014 Office visit V Pilar Limon MD 11/13/2014 Office visit Dieudonne Moreno DO
--- OUTSIDE RECORDS SUMMARY | 2017-03-10 17:06 | XMS REPORT ---
Author Author Mike Limon Organization [facility] Address [address] [place], [place] [phone] Care Team Providers Care Milling Operator Name Role Phone Mike Limon PCP [...] of prostate Stable Oct 02 2015 1:51PM Payers Insurance Name Company Name Plan Name Plan Number Policy Number Policy Group Number Start Date Medicare Part A Medicare Part A [id number] N/A [facility] [id number] N/A Medicare Part B Medicare [place] [id number] N/A History of Encounters Visit Date Visit Type Provider 10/02/2015 Office visit Mike Limon MD 05/29/2015 Office visit Mike Limon MD 01/15/2015 Office visit Mike Limon MD 12/04/2014 Office visit Mike Limon MD 11/13/2014 Office visit Dieudonne Moreno DO
--- OUTSIDE RECORDS SUMMARY | 2017-03-10 17:06 | XMS REPORT ---
Author Author Mike Limon Organization [facility] Address [address] [place], [place] [phone] Care Team Providers Care Balancing Machine Operator Name Role Phone Mike Limon PCP [...] Date Medicare Part A Medicare Part A [id number] N/A BCBS [facility] [id number] N/A Medicare Part B Medicare Of [place] [id number] N/A Medicare Part A Medicare - Lab/Xray [id number] N/A History of Encounters Visit Date Visit Type Provider 02/06/2017 Office visit V Pilar Limon MD 10/07/2016 Office visit V Pilar Limon MD 06/03/2016 Office visit V Pilar Limon MD 02/01/2016 Office visit V Pilar Limon MD 10/02/2015 Office visit V Pilar Limon MD 05/29/2015 Office visit V Pilar Limon MD 01/15/2015 Office visit V Pilar Limon MD 12/04/2014 Office visit V Pilar Limon MD 11/13/2014 Office visit Dieudonne Moreno DO
== END 2017-02-23 10:10 | disposition home or self-care (01) ==
LOC: DELPENDDIS → ENDO 07:47
PROVIDERS: ATTEND Surgery
DX: K21.9 Gastro-esophageal reflux disease without esophagitis (principal); D50.9 Iron deficiency anemia, unspecified; Q27.33 Arteriovenous malformation of digestive system vessel
CPT/HCPCS: 88305

== ENCOUNTER 2017-02-26 09:35 | Outpatient (CLI) | payer MEDICARE ==
[2017-02-26] VITALS (7 sets, daily range): BP systolic 139–146; BP diastolic 55–70
[~2017-02-26] VITALS: Ht 172.7 cm; Wt 71.4 kg
[2017-02-26] MEDS ORDERED: NS IV 500 ML 500 ML ONE (09:50)
== END 2017-02-26 15:10 | disposition home or self-care (01) ==
LOC: SDC 09:35
PROVIDERS: ATTEND Nurse Practitioner Family
DX: D64.9 Anemia, unspecified (principal); R53.1 Weakness
CPT/HCPCS: 36430; 86850; 86900; 86901; 86920

== ENCOUNTER → 2017-04-03 | Outpatient (CLI) | payer MEDICARE ==
--- NOTE | 2017-04-03 13:42 | Diagnostic Imaging Report ---
PROCEDURE: CT lumbar spine without contrast. TECHNIQUE: Multiple contiguous axial images were obtained through the lumbar spine without the use of intravenous contrast. Sagittal and coronal reformations were then performed. INDICATION: Low back pain. COMPARISON: Lumbar CT myelogram 08/02/2015. FINDINGS: There are 5 lumbar-type vertebral bodies. There is grade 1 retrolisthesis of L3 on L4 and L4 on L5. Alignment is otherwise normal. Vertebral body heights are maintained. No fractures. Degenerative endplate changes are most marked at L3-S1. There are stable Schmorl's nodes in the endplates of the L4-L5 and L5-S1 interspaces. The previously seen sclerotic focus in the superior endplate of L1 is no longer present and has been replaced by an apparent biopsy tract. There are no new sclerotic foci. Moderate to advanced lumbar facet arthropathy. Cholecystectomy. Arterial calcifications including a normal-caliber abdominal aorta. Vascular stent in the right common iliac artery. The visualized paravertebral soft tissues are otherwise unremarkable. L1-L2: No substantial spinal canal or neuroforaminal narrowing on this noncontrast exam. L2-L3: Broad-based disc bulge, ligamentous hypertrophy and facet arthropathy all contribute to at least moderate spinal canal narrowing. This was better demonstrated on the previous CT myelogram and may have progressed since that time. The broad-based disc bulge and facet arthropathy contribute to moderate bilateral neuroforaminal narrowing. L3-L4: Posterior disc osteophyte complex, the retrolisthesis, ligamentous hypertrophy and facet arthropathy all contribute to at least moderate spinal canal narrowing. The prior CT myelogram demonstrates that this narrowing is likely underestimated on this noncontrast exam as it were more advanced on the CT myelogram. Disc space height loss and facet arthropathy contribute to advanced bilateral neuroforaminal narrowing. L4-L5: Posterior disc osteophyte complex, the retrolisthesis and ligamentous hypertrophy result in at least mild spinal canal narrowing. Disc space height loss and facet arthropathy result in advanced bilateral neuroforaminal narrowing. L5-S1: No definite spinal canal narrowing. Disc space height loss and facet arthropathy result in advanced bilateral neuroforaminal narrowing. Vacuum phenomenon extending into the right neuroforamen suggests this is also partially due to a disc extrusion, similar to the prior exam. IMPRESSION: 1. 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 The prior CT myelogram demonstrated that the spinal canal narrowing at L3-L4 was moderate to advanced at that time and is likely underestimated on today's exam. The current degree of spinal canal narrowing could be better evaluated with repeat CT myelogram or MRI. 2. Diffuse moderate and advanced neuroforaminal narrowing detailed above. Dictated by: Dictated on workstation # [id number]
== END ==
LOC: RAD 12:20
PROVIDERS: ATTEND Internal Medicine
DX: M47.816 Spondylosis without myelopathy or radiculopathy, lumbar region (principal)
CPT/HCPCS: 72131

== ENCOUNTER → 2017-04-13 | Emergency (ER) | payer MEDICARE ==
[~2017-04-13] VITALS: Ht 172.7 cm; Wt 71.4 kg
[~2017-04-13] MED LIST changes: +NS IV 1000 ML 2,000 ML IV PRN
[2017-04-13 16:53] LABS: BASOPHILS # (AUTO) 0.1 10^3/uL (0.0-0.1); BASOPHILS % (AUTO) 0 % (0-10); EOSINOPHILS % (AUTO) 0 % (0-10); MEAN CORPUSCULAR HEMOGLOBIN 32 PG (25-34); MEAN CORPUSCULAR HGB CONC 30 G/DL (32-36); MEAN CORPUSCULAR VOLUME 108 FL (80-99); MEAN PLATELET VOLUME 11.9 FL (7.4-10.4); PLATELET COUNT 135 10^3/uL (130-400); RED BLOOD COUNT 2.01 10^6/uL (4.35-5.85); RED CELL DISTRIBUTION WIDTH 19.3 % (10.0-14.5)
[2017-04-13 16:56] LABS: WHITE BLOOD COUNT 51.6 10^3/uL (4.3-11.0)
--- NOTE | 2017-04-13 16:58 | ED General ---
General Chief Complaint: General Problems/Pain Stated Complaint: WEAKNESS Nursing Triage Note: PT TO [facility] BY [facility] WITH CC OF WEAKNESS. PT WALKED TO THE COT WITH ASSISTANCE BUT HAS BECOME LESS RESPONSIVE. Nursing Sepsis Screen: No Definite Risk Source of Information: Patient, EMS, Family Exam Limitations: No Limitations History of Present Illness Time Seen by Provider: 16:37 Initial Comments Here with 3-4 days of increasing weakness. Today became increasingly weak and less responsive. Patient here by EMS with blood pressure noted to be 60s systolic. Patient agonal breathing on arrival and cool and clammy. Family member reports that he has had increasing weakness over the last few days and decreased appetite and by mouth intake of fluids. Also with vomiting recently and abdominal pain. Report recent CT at [facility] showing multiple enlarged lymph nodes and multiple spots on the liver concerning for malignancy. Has history of CLL and appears to potentially have had lymphoma. Timing/Duration: 3-4 Days Severity: Moderate Associated Systoms: No Chest Pain, Nausea/Vomiting, Shortness of Air, Weakness Allergies and Home Medications Allergies Coded Allergies: No Known Drug Allergies (Verified , 06/12/08) Home Medications Amlodipine Besylate 5 Mg Tablet, 5 MG PO DAILY, (Reported) Aspirin 81 Mg Tab.chew, 81 MG PO DAILY, (Reported) Atorvastatin Calcium 80 Mg Tablet, 80 MG PO HS, (Reported) Cyanocobalamin 1,000 Mcg/Ml Inj, 1,000 MCG IJ UD, #0 MONTHLY INJECTION Prescribed by: EDU BALL on 09/15/161651 Cyanocobalamin (Vitamin B-12) 1,000 Mcg Tablet, 1,000 MCG PO DAILY, #0 Prescribed by: EDU BALL on 09/15/161651 Diltiazem HCl 120 Mg Cap.er.24h, 120 MG PO BID, (Reported) Dimenhydrinate 50 Mg Tablet, 50 MG PO DAILY, #0 Prescribed by: EDU BALL on 09/15/161651 Esomeprazole Magnesium 40 Mg Cap, 40 MG PO DAILY, (Reported) Ferrous Sulfate 325 Mg Tablet, 325 MG PO DAILY, (Reported) Fluticasone/Vilanterol 1 Each Blst.w.dev, 1 EACH IH DAILY, (Reported) Metformin HCl 500 Mg Tab.er.24h, 1,000 MG PO DAILY, (Reported) take 2 (500mg) tabs Metoprolol Succinate 50 Mg Tab.er.24h, 50 MG PO DAILY, (Reported) Mv,Ca,Min/Iron Fum/Fa/Lyco/Lut 1 Each Tablet, 1 TAB PO DAILY, (Reported) [place]-3 Fatty Acids/Fish Oil 1 Each Capsule, 1,000 MG PO DAILY, (Reported) Ramipril 5 Mg Capsule, 5 MG PO DAILY, (Reported) Umeclidinium Ashley 62.5 Mcg Blst.w.dev, 62.5 MCG IH DAILY, (Reported) Constitutional: see HPI, chills, No fever, weakness Respiratory: short of breath Gastrointestinal: nausea, vomiting Other Unable to complete review of systems due to altered mental status Past Pztgxwo-Mtxfxo-Lssvmq Hx Patient Social History Alcohol Use: Denies Use Recreational Drug Use: No Type Used: Cigarettes Former Smoker/When Quit: Aug 30, 2012 Recent Foreign Travel: No Contact w/Someone Who Travel: No Recent Infectious Disease Expo: No Recent Hopitalizations: No Immunizations Up To Date Date of Pneumonia Vaccine: Sep 11, 2010 Date of Influenza Vaccine: Aug 30, 2016 Seasonal Allergies Seasonal Allergies: No Surgeries HX Surgeries: Yes (CATARACT SURGERY, AND PROCEDURES LIKE COLONOSCOPY, BRONCHOSCOPY, TURP) Respiratory Hx Respiratory Disorders: Yes Respiratory Disorders: Sleep Apnea Cardiovascular Hx 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[facility]) Cardiac Disorders: Hypertension Neurological Hx Neurological Disorders: No Reproductive System Hx Reproductive Disorders: No Genitourinary Hx Genitourinary Disorders: No Gastrointestinal Hx Gastrointestinal Disorders: No Musculoskeletal Hx Musculoskeletal Disorders: No Musculoskeletal Disorders: Arthritis, Chronic Back Pain Endocrine Hx Endocrine Disorders: Yes Endocrine Disorders: Diabetes, Non-Insulin dep HEENT HX ENT Disorders: Yes (DENTURES) Cancer Hx Cancer: Yes Cancer: Prostate Psychosocial Hx Psychiatric Problems: No Integumentary HX Skin/Integumentary Disorder: No Blood Transfusions Hx Blood Disorders: Yes (anemia, low platelets) Reviewed Nursing Assessment Reviewed/Agree w Nursing PMH: Yes Family Medical History Significant Family History: No Pertinent Family Hx Family Medial History: Patient reports no known family medical history. Physical Exam-Suspected Sepsis Physical Exam Vital Signs Vital Sign - Last 12Hours 04/13/17 04/13/17 16:26 16:34 Temp 96.5 Pulse 66 Resp 22 B/P (MAP) 79/30 Pulse Ox 100 O2 Delivery Nonrebreather O2 Flow Rate 15.00 Capillary Refill : Less Than 3 Seconds Blood Pressure Mean: 46 General Appearance: Chronically ill, Moderate Distress HEENT: PERRL/EOMI, Pharynx Normal Neck: Non Tender, Supple Respiratory: Respiratory Distress, Other (agonal breathing) Cardiovascular: Regular Rate, Rhythm, No Murmur Gastrointestinal: Non Tender, Soft Extremity: Normal Range of Motion, Non Tender Neurologic/Psychiatric: Disoriented x3, Motor Weakness, Sensory Deficit Skin: cool, damp, pallor Focused Exam Lactic Acid Level Laboratory Tests Test 04/13/17 16:45 Lactic Acid Level 16.45 MMOL/L (0.50-2.00) *H Progress/Results/Core Measures Suspected Sepsis Recent Fever Within 48 Hours: No Infection Criteria Present: None New/Unexplained Altered Menta: Yes Sepsis Screen: No Definite Risk Sepsis Diagnosis: SIRS Temperature:96.5 Pulse: 66 Respiratory Rate: 22 Laboratory Tests 04/13/17 16:45: White Blood Count 51.6*H Blood Pressure 79 /30 Mean: 46 Laboratory Tests 04/13/17 16:45: Creatinine 1.88H, Platelet Count 135, Total Bilirubin 2.9H Results/Orders Lab Results Laboratory Tests Test 04/13/17 16:45 Range/Units White Blood Count 51.6 *H 4.3-11.0 10^3/uL Red Blood Count 2.01 L 4.35-5.85 10^6/uL Hemoglobin 6.4 *L 13.3-17.7 G/DL Hematocrit 22 L 40-54 % Mean Corpuscular Volume 108 H 80-99 FL Mean Corpuscular Hemoglobin 32 25-34 PG Mean Corpuscular Hemoglobin Concent 30 L 32-36 G/DL Red Cell Distribution Width 19.3 H 10.0-14.5 % Platelet Count 135 130-400 10^3/uL Mean Platelet Volume 11.9 H 7.4-10.4 FL Neutrophils (%) (Auto) 42-75 % Lymphocytes (%) (Auto) 12-44 % Monocytes (%) (Auto) 0-12 % Eosinophils (%) (Auto) 0 0-10 % Basophils (%) (Auto) 0 0-10 % Neutrophils # (Auto) 1.8-7.8 X 10^3 Lymphocytes # (Auto) 1.0-4.0 X 10^3 Monocytes # (Auto) 0.0-1.0 X 10^3 Eosinophils # (Auto) 0.0 0.0-0.3 10^3/uL Basophils # (Auto) 0.1 0.0-0.1 10^3/uL Sodium Level 133 L 135-145 MMOL/L Potassium Level 7.0 *H 3.6-5.0 MMOL/L Chloride Level 100 98-107 MMOL/L Carbon Dioxide Level 10 L 21-32 MMOL/L Anion Gap 23 H 5-14 MMOL/L Blood Urea Nitrogen 51 H 7-18 MG/DL Creatinine 1.88 H 0.60-1.30 MG/DL Estimat Glomerular Filtration Rate 35 BUN/Creatinine Ratio 27 Glucose Level 104 70-105 MG/DL Lactic Acid Level 16.45 *H 0.50-2.00 MMOL/L Calcium Level 8.9 8.5-10.1 MG/DL Total Bilirubin 2.9 H 0.1-1.0 MG/DL Aspartate Amino Transf (AST/SGOT) 975 H 5-34 U/L Alanine Aminotransferase (ALT/SGPT) 354 H 0-55 U/L Alkaline Phosphatase 661 H 40-136 U/L Troponin I < 0.30 <0.30 NG/ML Total Protein 5.6 L 6.4-8.2 G/DL Albumin 2.5 L 3.2-4.5 G/DL My Orders Orders - TOM PARRISH MD Arterial Blood Gas (04/13/17 16:44) Cbc With Automated Diff (04/13/17 16:44) Comprehensive Metabolic Panel (04/13/17 16:44) Lactic Acid Analyzer (04/13/17 16:44) Blood Culture (04/13/17 16:44) Sputum Culture (04/13/17 16:44) Ua Culture If Indicated (04/13/17 16:44) Protime With Inr (04/13/17 16:44) Partial Thromboplastin Time (04/13/17 16:44) O2 (04/13/17 16:44) Saline Lock/Iv-Start (04/13/17 16:44) Saline Lock/Iv-Start (04/13/17 16:44) Ekg Tracing (04/13/17 16:44) Troponin I (04/13/17 16:44) Ns Iv 1000 Ml (Sodium Chloride 0.9%) (04/13/17 16:45) Vital Signs Adult Sepsis Patie Q1HR (04/13/17 16:44) Remove Rings In Anticipation O (04/13/17 16:44) Catheter(Urinary) Insert & Ass 03,15 (04/13/17 16:44) Manual Differential (04/13/17 16:45) Vital Signs/I&O Vital Sign - Last 12Hours 04/13/17 04/13/17 16:26 16:34 Temp 96.5 Pulse 66 Resp 22 B/P (MAP) 79/30 Pulse Ox 100 100 O2 Delivery Nonrebreather Non Rebreather O2 Flow Rate 15.00 Capillary Refill : Less Than 3 Seconds Blood Pressure Mean: 46 Progress Note : Progress Note Seen and evaluated on arrival by EMS. Patient and her condition on arrival with blood pressure 80 systolic. Patient has near agonal breathing. Family member arrives. Patient is DO NOT RESUSCITATE but initially wanted everything done or wasn't sure. 1706: I have had a long discussion with the patient with the yacht captain at bedside with the patient. Patient is unresponsive and remains and somewhat agonal breathing. Blood pressure 79/32 with heart rate of 58 and sats of 77 percent on oximetry. She has decided that comfort care is the appropriate option for which I and the other providers in the room agree. We will put the patient on comfort care order set and admit.1712: Case discussed with Dr. FROST who accepts patient for comfort care. 1728: Prior to admission , patient passed peacefully. Magnetic placed. [employer] notified to come disable pacemaker. Patient passed family and yacht captain at bedside as well as myself. ECG Initial ECG Impression Date: April 13, 2017 Initial ECG Impression Time: 16:43 Initial ECG Rate: 63 Initial ECG Rhythm: Normal Sinus Comment Sinus rhythm with nonspecific intraventricular conduction delay. Normal axis. No evidence of ST elevation CO. Similar to previous of 08/24/13. Interpreted by me. Departure Impression Impression: Primary Impression: Cardiorespiratory arrest Disposition: 20 Condition: Departure-Patient Inst. Referrals: PRAFUL DENISE DO (PCP/Family) Primary Care Physician TOM PARRISH MD April 13, 2017 16:58
[2017-04-13 17:14] LABS: ALANINE AMINOTRANSFERASE 354 U/L (0-55); ALBUMIN 2.5 G/DL (3.2-4.5); ANION GAP 23 MMOL/L (5-14); ASPARTATE AMINO TRANSFERASE 975 U/L (5-34); BILIRUBIN,TOTAL 2.9 MG/DL (0.1-1.0); BLOOD UREA NITROGEN 51 MG/DL (7-18); BUN/CREATININE RATIO 27; CALCIUM 8.9 MG/DL (8.5-10.1); CARBON DIOXIDE 10 MMOL/L (21-32); CHLORIDE 100 MMOL/L (98-107); CREATININE SERUM 1.88 MG/DL (0.60-1.30); GFR ESTIMATED 35; GLUCOSE 104 MG/DL (70-105); SODIUM 133 MMOL/L (135-145); TOTAL PROTEIN 5.6 G/DL (6.4-8.2)
[2017-04-13 17:16] LABS: TROPONIN I < 0.30 NG/ML (<0.30)
[2017-04-13 17:34] LABS: ATYPICAL LYMPHOCYTES 15 %; BAND NEUTROPHILS 2 %; EOSINOPHILS % (MANUAL) 1 %; LYMPHOCYTES % (MANUAL) 80 %; NEUTROPHILS % (MANUAL) 2 %
[2017-04-13 18:01] LABS: INR 1.4 (0.8-1.4); PROTHROMBIN TIME PATIENT 16.7 SEC (12.2-14.7)
[2017-04-13 19:30] VITALS: BP 0/0
== END | disposition expired ==
LOC: EDUNIT# 16:26 → ER 16:31
DX: I46.9 Cardiac arrest, cause unspecified (principal); I10 Essential (primary) hypertension; E11.9 Type 2 diabetes mellitus without complications; R59.0 Localized enlarged lymph nodes; K76.9 Liver disease, unspecified; Z79.82 Long term (current) use of aspirin; Z79.84 Long term (current) use of oral hypoglycemic drugs; Z79.899 Other long term (current) drug therapy; Z95.810 Presence of automatic (implantable) cardiac defibrillator; Z85.6 Personal history of leukemia
CPT/HCPCS: 36415; 80053; 83605; 84484; 85007; 85027; 85610; 85730; 87040